=== PATIENT | female | born 1935 | race Caucasian/White ===

== ENCOUNTER → 2016-09-21 | Outpatient (CLI) | payer BC ==
[~2016-09-21] MED LIST: ACET-1311 PO; ASPCH81X PO; LSX20 PO; METO1TAB31 PO; ROSU5TAB PO; SPR25 PO; VERA120T65 PO
[2016-09-21 09:44] LABS: HEMATOCRIT 38.4 % (37-47); MEAN CELL VOLUME 100.3 fL (80-100); MEAN CORPUSCULAR HEMOGLOBIN 32.6 pg (25-34); MEAN CORPUSCULAR HGB CONC 32.6 g/dl (32-36); MEAN PLATELET VOLUME 10.5 fL (7.4-10.4); PLATELET COUNT 245 K/uL (130-400); RED BLOOD COUNT 3.83 M/uL (4.2-5.4); WHITE BLOOD COUNT 3.66 K/uL (4.8-10.8)
[2016-09-21 10:11] LABS: ALT/SGPT 23 U/L (12-78); AST/SGOT 17 U/L (15-37); BLOOD UREA NITROGEN 30 mg/dl (7-18); BUN/CREATININE RATIO 21.5 (10-20); CALCIUM 9.7 mg/dl (8.5-10.1); CARBON DIOXIDE 29 mmol/L (21-32); CHLORIDE 102 mmol/L (98-107); GLUCOSE 70 mg/dl (70-99); POTASSIUM 4.1 mmol/L (3.5-5.1); SODIUM 139 mmol/L (136-145)
[2016-09-21 10:15] LABS: ALKALINE PHOSPHATASE 61 U/L (45-117)
[2016-09-21 14:49] LABS: URINE APPEARANCE CLEAR (CLEAR); URINE BILIRUBIN NEG (NEG); URINE COLOR YELLOW; URINE NITRITE NEG (NEG); URINE PH 6.5 (4.5-7.5); URINE SPECIFIC GRAVITY 1.002 (1.000-1.030); UROBILINOGEN NEG (NEG)
[2016-09-21 14:52] LABS: MANUAL MICROSCOPIC REQUIRED? NO; REVIEW REQ? NO
[2016-09-21 15:08] LABS: URINE TOTAL PROTEIN < 5.0 mg/dl (0-11.9)
== END | disposition home or self-care (01) ==
LOC: C.LAB1850 08:06
PROVIDERS: ATTEND Internal Medicine Nephrology
DX: I12.9 Hypertensive chronic kidney disease with stage 1 through stage 4 chronic kidney disease, or unspecified chronic kidney disease (principal); N18.3 Chronic kidney disease, stage 3 (moderate); E55.9 Vitamin D deficiency, unspecified; D64.9 Anemia, unspecified; E78.00 Pure hypercholesterolemia, unspecified

== ENCOUNTER → 2017-04-10 | Outpatient (CLI) | payer BC ==
[2017-04-10 10:16] LABS: BASO ABS # 0.04 K/uL (0-0.2); COMPLETE YES; EOS % 5.7 %; HEMATOCRIT 36.5 % (37-47); IG% 0.3 %; LYMPH % 38.4 %; LYMPH ABS # 1.48 K/uL (1.2-3.4); MEAN CELL VOLUME 101.7 fL (80-100); MEAN CORPUSCULAR HEMOGLOBIN 33.4 pg (25-34); MEAN CORPUSCULAR HGB CONC 32.9 g/dl (32-36); MEAN PLATELET VOLUME 10.1 fL (7.4-10.4); MONO % 11.2 %; NEUT % 43.4 %; PLATELET COUNT 257 K/uL (130-400); RED BLOOD COUNT 3.59 M/uL (4.2-5.4); WHITE BLOOD COUNT 3.85 K/uL (4.8-10.8)
[2017-04-10 10:22] LABS: URINE APPEARANCE CLEAR (CLEAR); URINE BILIRUBIN NEG (NEG); URINE COLOR YELLOW; URINE EPITHELIAL CELL AUTO >30 /lpf (0-5); URINE NITRITE NEG (NEG); URINE SPECIFIC GRAVITY 1.014 (1.000-1.030); UROBILINOGEN NEG (NEG)
[2017-04-10 10:30] LABS: MANUAL MICROSCOPIC REQUIRED? NO; REVIEW REQ? NO
[2017-04-10 10:31] LABS: ALT/SGPT 21 U/L (12-78); AST/SGOT 20 U/L (15-37); BLOOD UREA NITROGEN 23 mg/dl (7-18); BUN/CREATININE RATIO 17.7 (10-20); CALCIUM 9.2 mg/dl (8.5-10.1); CARBON DIOXIDE 28 mmol/L (21-32); CHLORIDE 101 mmol/L (98-107); GLUCOSE 81 mg/dl (70-99); POTASSIUM 3.8 mmol/L (3.5-5.1); SODIUM 138 mmol/L (136-145)
[2017-04-10 10:34] LABS: ALKALINE PHOSPHATASE 72 U/L (45-117); CHOLESTEROL 231 mg/dl (0-200); CHOLESTEROL/HDL RATIO 2.3; HDL CHOLESTEROL 101 mg/dl; LDL CHOLESTEROL CALCULATED 86 mg/dl; TRIGLYCERIDES 222 mg/dl (0-150); VERY LOW DENSITY LIPOPROT CALC 44 mg/dl
[2017-04-10 11:03] LABS: URINE PROTIEN/CREAT RATIO 0.1 (0-0.2); URINE TOTAL PROTEIN 17.7 mg/dl (0-11.9)
[2017-04-10 11:12] LABS: RATIO 20.1 mcg/mg (0-30.0)
== END | disposition home or self-care (01) ==
LOC: C.LAB1850 09:03
PROVIDERS: ATTEND Internal Medicine
DX: I12.9 Hypertensive chronic kidney disease with stage 1 through stage 4 chronic kidney disease, or unspecified chronic kidney disease (principal); N18.3 Chronic kidney disease, stage 3 (moderate); E55.9 Vitamin D deficiency, unspecified; R60.9 Edema, unspecified; D64.9 Anemia, unspecified; E87.1 Hypo-osmolality and hyponatremia; E78.00 Pure hypercholesterolemia, unspecified; D50.8 Other iron deficiency anemias

== ENCOUNTER → 2017-10-09 | Outpatient (CLI) | payer BC ==
[~2017-10-09] MED LIST changes: +METO-478 PO; -METO1TAB31 PO
[2017-10-09 10:09] LABS: BASO % 0.9 %; BASO ABS # 0.04 K/uL (0-0.2); EOS % 3.8 %; EOS ABS # 0.16 K/uL (0-0.5); HEMATOCRIT 37.9 % (37-47); HEMOGLOBIN 12.7 g/dL (12.0-16.0); IG# 0.01 K/uL (0.00-0.02); LYMPH % 37.7 %; MEAN CELL VOLUME 101.6 fL (80-100); MEAN CORPUSCULAR HGB CONC 33.5 g/dl (32-36); MEAN PLATELET VOLUME 9.9 fL (7.4-10.4); MONO ABS # 0.34 K/uL (0.11-0.59); NEUT % 49.4 %; NEUT ABS # 2.09 K/uL (1.4-6.5); PLATELET COUNT 218 K/uL (130-400); RED CELL DISTRIBUTION WIDTH CV 12.2 % (11.5-14.5); WHITE BLOOD COUNT 4.24 K/uL (4.8-10.8)
[2017-10-09 10:36] LABS: ALBUMIN 3.8 gm/dl (3.4-5.0); ALT/SGPT 24 U/L (12-78); AST/SGOT 22 U/L (15-37); BLOOD UREA NITROGEN 25 mg/dl (7-18); CARBON DIOXIDE 27 mmol/L (21-32); GLUCOSE 86 mg/dl (70-99); POTASSIUM 3.8 mmol/L (3.5-5.1); SODIUM 135 mmol/L (136-145)
[2017-10-09 10:39] LABS: ALKALINE PHOSPHATASE 55 U/L (45-117); TOTAL PROTEIN 7.6 gm/dl (6.4-8.2)
== END | disposition home or self-care (01) ==
LOC: C.LAB1850 09:25
PROVIDERS: ATTEND Internal Medicine
DX: N18.3 Chronic kidney disease, stage 3 (moderate) (principal); I10 Essential (primary) hypertension; Z87.898 Personal history of other specified conditions; E55.9 Vitamin D deficiency, unspecified; D50.8 Other iron deficiency anemias

== ENCOUNTER 2020-11-30 03:04 | Observation (INO) ==
[2020-11-30] MEDS ORDERED: SODIUM CHLORIDE 0.9% 1000ML 500 ML IV ONE (03:10)
--- NOTE | 2020-11-30 03:18 | Emergency Department Note ---
Impression & Plan Syncope, Current use of usp anticoagulation, Closed head injury, Alcohol intoxication ED Provider Note Name: IVAN RODRIGUEZ Age: 85 Sex: F Arrives Via: Ambulance Informant: Patient, EMS ED Provider: Kennedy Cohen MD Chief Complaint: AMS Impression: Syncope Current use of termite exterminator helper anticoagulation Closed head injury Alcohol Intoxication Medical Decision Makin yr old female with history P-Afib on xarelto, CAD, DLP, HTN, CKD, SIADH, amongst others arrives after being found confused laying on floor of bathroom covered in stool. Arrives slightly sleepy but answering most questions other than not remember what occurred between going to bed at 8-9pm and being awoken by EMS at 2:30am. Slight contusion vs lump posterior scalp otherwise no evidence trauma. Ostomy bad was closed so it would stop leaking, of note she has taped her ostomy to her skin which she states doesn't cause skin break down. CT head/cervical spine negative. Labs with ++ etoh, which on further discussion patient admits to having "just 3 glasses of wine" prior to bed. EKG with afib, and of note she does tend to binu out a fair bit while sleeping in bed. No clear infectious etiology. Doesn't seem stroke. Hospitalist consulted given need for syncope rule out, though I do suspect etoh played role in head injury. With A&O I do not feel that she requires transfer to trauma center for monitoring at this time. Prior Medical Record and Triage/Nursing Notes reviewed by Me Additional history obtained from chart Differentials:Vasovagal event, dehydration, infection, hypoglycemia, electrolyte abnormalities, cardiac sources, intracerebral event, pulmonary embolism, seizure, toxicologic, neurologic, as well as other pathologies. Vital Signs: reviewed and remarkable for bradycardia Interventions: banana bag Labs:Reviewed and remarkable for ++etoh Imaging:[facility] Radiologist interpretation reviewed by me: CT head/cervical: no acute findings. X ray results are stated below per my interpretation: Chest: 1 view: No infiltrate, no effusion, normal cardiac border. Pelvis: 1 view: no fracture/dislocation EKG:Per My Interpretation: Indication Syncope: Afib with slow ventricular response 54 bpm, qtc 316. No Ectopy. No Ischemia. Compared to EKG 12/02/19 afib is new from previous sinus rhythm. Cardiac/Tele Monitoring: Cardiac Monitoring: An Order was placed for continuous cardiac monitoring. The monitor shows a rate of 45 with a afib binu rhythm. Consults:Dr Talley Hospitalist Plan: Disposition:Hospitalization. Condition: good History of Present Illness:85 yr old female arrives for evaluation of syncope. Patient notes she went to bed around 8 or 9 pm tonight. Her son found her crawling on the floor of the bathroom this morning around 2:30 am. EMS reports patient laying on floor in her own stool this morning. Patient is confused about events but denies any pain nor other symptoms. Patient notes that ostomy bag must have opened up at some point as she has stool on herself. Denies headache, neck pain, sob, cp, nausea, vomiting, fevers, chills, back pain, extremity pain, nor other symptoms. She denies frequent falls. Does not remember what happened after going to bed, but she thinks she may have gotten up to go to the bathroom. Denies etoh use this evening. No medications prior to arrival. Nothing makes better/worse. She uses Xarelto for history of Parox Afib. Is also on 81mg daily asa amongst others. ROS: See above HPI for pertinent positives & negatives. A total of 10 systems reviewed and were otherwise negative. Past Medical History:See Below Past Surgical History:See Below Family History:See Below Social History:See Below Home Medications:See Below Allergies:shrimp, nkda Vitals:Blood Pressure: 113/56, Pulse 49, RR 18, T 36.9C, O2 97% on RA Physical Exam: GENERAL: Patient is slightly confused appearing and in minimal distress. Covered in stool on hands/feet/legs. EYES: No scleral icterus, unremarkable pupils. HEAD: Small contusion/ttp posterior left scalp ENT: Mucous membranes moist, no nasal congestion. NECK: No masses appreciated, nomeningismus, trachea is midline. RESPIRATORY: No dyspnea. Clear to auscultation and equal bilaterally. No wheeze, no rhonchi. CARDIOVASCULAR: Binu, irregular.No murmurs, rubs, gallops appreciated. GASTROINTESTINAL: Ostomy left lower abdomen open and leaking brown soft stool. Abdomen soft, non-tender, no peritonitis.Bowel sounds positive.No masses appreciated. BACK: No midline tenderness, no CVA tenderness EXTREMITIES: Normal motion all extremities, no cyanosis, no edema. NEUROLOGIC: Awake, sleepy, a bit slow to respond, no acute motor or sensory def icits, no focal weakness, cranial nerves grossly intact. SKIN: No rash, no jaundice, no diaphoresis. PSYCH: Appropriate GCS: 15 ED Course: Times/Reassessments: stable, no distress Kennedy Cohen MD Past Med/Surg History Medical History (Updated 11/30/20 @ 05:11 by Marii Talley DO) Abdominal abscess Chronic kidney disease, stage 3 Ganglion cyst Hypertension Orthostatic hypotension SIADH (syndrome of inappropriate ADH production) Syncope Surgical History H/O dilation and curettage H/O oral surgery History of cataract surgery History of partial colectomy History of tubal ligation Family History Sister Breast cancer Unknown Diabetes Heart disease Father Myocardial infarction Denies family history of Ovarian cancer Prostate cancer Colorectal cancer Social History Smoking Status: Unknown if ever smoked Hx Alcohol Use: Yes (2 glasses a day ) Hx Substance Use: No Preferred Language: Martiniquais marital status: Feels Safe at Home: Yes Physical Activity Frequency: Daily Seatbelt Use: always Allergies Allergies Allergy/AdvReac Type Severity Reaction Status Date / Time shrimp Allergy Intermediate BREAKS OUT Verified 01/12/20 10:15 IN HIVES No Known Drug Allergies Allergy Verified 01/15/20 15:40 Home Meds Home Medications Medication Instructions Recorded Confirmed aspirin 81 mg tablet,delayed 81 mg PO MOFR tab 03/05/19 01/15/20 release coenzyme Q10 [CoQ-10] 100 mg PO QAM 06/21/19 01/15/20 naproxen 500 mg PO QAM 06/21/19 11/30/20 folic acid-vit B6-vit B12 1 tab PO MOWEFR 12/02/19 01/15/20 Previous Rx's Medication Instructions Recorded furosemide 20 mg tablet 20 mg PO .COMPLEX #90 tab 05/11/20 metoprolol succinate 50 mg 50 mg PO QAM #90 tab 05/17/20 tablet,extended release 24 hr rivaroxaban 15 mg tablet 15 mg PO DAILY #30 tab 07/29/20 rosuvastatin 5 mg tablet See Rx Instructions .ROUTE 10/01/20 .COMPLEX #36 tablet solifenacin 5 mg tablet 5 mg PO DAILY #30 tab 10/21/20 verapamil 120 mg tablet,extended See Rx Instructions .ROUTE 10/21/20 release .COMPLEX #90 tab Results & Data (ED) Vital Signs Vital Signs - 24 hr 11/30/20 02:56 11/30/20 03:14 11/30/20 03:19 Temperature 36.9 C Temperature Source Oral Pulse Rate 59 L 45 L 45 L Pulse Rhythm Regular Pulse Strength Normal Respiratory Rate 18 15 16 Respiratory Effort / Characteristics Non-Labored Respiratory Depth Normal Blood Pressure 136/75 136/75 Blood Pressure Mean 95 95 Blood Pressure Position Lying Pulse Oximetry 94 98 Oxygen Delivery Method Room Air Sepsis Recent Fever Within 48 Hours No Sepsis New/Unexplained Change in Mental Status Yes Sepsis Action Taken by Nursing No Action Required 11/30/20 04:00 11/30/20 04:01 11/30/20 04:31 Temperature Temperature Source Pulse Rate 53 L 62 48 L Pulse Rhythm Pulse Strength Respiratory Rate 18 16 21 Respiratory Effort / Characteristics Respiratory Depth Blood Pressure 121/50 L 112/55 L Blood Pressure Mean 73 74 Blood Pressure Position Pulse Oximetry 90 94 95 Oxygen Delivery Method Sepsis Recent Fever Within 48 Hours Sepsis New/Unexplained Change in Mental Status Sepsis Action Taken by Nursing 11/30/20 05:00 11/30/20 05:30 Temperature Temperature Source Pulse Rate 45 L 49 L Pulse Rhythm Pulse Strength Respiratory Rate 16 18 Respiratory Effort / Characteristics Respiratory Depth Blood Pressure 106/45 L 113/56 L Blood Pressure Mean 65 75 Blood Pressure Position Pulse Oximetry 93 97 Oxygen Delivery Method Sepsis Recent Fever Within 48 Hours Sepsis New/Unexplained Change in Mental Status Sepsis Action Taken by Nursing Laboratory Data Result diagrams: 11/30/20 03:27 11/30/20 03:27 Lab Results 11/30/20 11/30/20 11/30/20 Range/Units 03:27 03:27 03:27 WBC 6.24 (4.8-10.8) K/uL RBC 3.71 L (4.2-5.4) M/uL Hgb 12.6 (12.0-16.0) g/dL Hct 38.0 (37-47) % MCV 102.4 H (80-100) fL MCH 34.0 (25-34) pg MCHC 33.2 (32-36) g/dL RDW Std Deviation 45.1 (36.4-46.3) fL RDW Coeff of Diana 11.9 (11.5-14.5) % Plt Count 240 (130-400) K/uL MPV 9.4 (7.4-10.4) fL Immature Gran % (Auto) 0.2 % Neut % (Auto) 54.2 % Lymph % (Auto) 35.7 % Pickett % (Auto) 7.2 % Eos % (Auto) 2.2 % Baso % (Auto) 0.5 % Neut # (Auto) 3.38 (1.4-6.5) K/uL Lymph # (Auto) 2.23 (1.2-3.4) K/uL Pickett # (Auto) 0.45 (0.11-0.59) K/uL Eos # (Auto) 0.14 (0-0.5) K/uL Baso # (Auto) 0.03 (0-0.2) K/uL Immature Gran # (Auto) 0.01 (0.00-0.02) K/uL PT 12.8 H (9.0-12.0) Seconds INR 1.3 H (0.9-1.1) APTT 35.0 H (21.0-31.0) Seconds PTT Ratio 1.3 Sodium 138 (136-145) mmol/L Potassium 3.8 (3.5-5.1) mmol/L Chloride 102 (98-107) mmol/L Carbon Dioxide 26 (21-32) mmol/L Anion Gap 10.0 (3-11) BUN 26 H (7-18) mg/dl Creatinine 1.38 H (0.6-1.2) mg/dl Est Cr Clr Drug Dosing 22.7 ml/min Est GFR ( Amer) 39.7 ml/min Est GFR (Non-Af Amer) 34.3 ml/min BUN/Creatinine Ratio 19.0 (10-20) Glucose 82 (70-99) mg/dl Calcium 9.0 (8.5-10.1) mg/dl Magnesium 2.1 (1.8-2.4) mg/dl Total Bilirubin 0.3 (0.2-1) mg/dl Direct Bilirubin 0.1 (0-0.2) mg/dl AST 20 (15-37) U/L ALT 21 (12-78) U/L Alkaline Phosphatase 75 (45-117) U/L Total Creatine Kinase 56 (26-192) U/L Troponin I < 0.015 (0-0.045) ng/ml Total Protein 7.4 (6.4-8.2) gm/dl Albumin 3.5 (3.4-5.0) gm/dl Lipase 179 (73-393) U/L Ethyl Alcohol mg/dL (0-3) mg/dl COVID-19 Eval Order SARS-CoV-2 (PCR) (Negative) 11/30/20 11/30/20 11/30/20 Range/Units 03:27 04:06 04:06 WBC (4.8-10.8) K/uL RBC (4.2-5.4) M/uL Hgb (12.0-16.0) g/dL Hct (37-47) % MCV (80-100) fL MCH (25-34) pg MCHC (32-36) g/dL RDW Std Deviation (36.4-46.3) fL RDW Coeff of Diana (11.5-14.5) % Plt Count (130-400) K/uL MPV (7.4-10.4) fL Immature Gran % (Auto) % Neut % (Auto) % Lymph % (Auto) % Pickett % (Auto) % Eos % (Auto) % Baso % (Auto) % Neut # (Auto) (1.4-6.5) K/uL Lymph # (Auto) (1.2-3.4) K/uL Pickett # (Auto) (0.11-0.59) K/uL Eos # (Auto) (0-0.5) K/uL Baso # (Auto) (0-0.2) K/uL Immature Gran # (Auto) (0.00-0.02) K/uL PT (9.0-12.0) Seconds INR (0.9-1.1) APTT (21.0-31.0) Seconds PTT Ratio Sodium (136-145) mmol/L Potassium (3.5-5.1) mmol/L Chloride (98-107) mmol/L Carbon Dioxide (21-32) mmol/L Anion Gap (3-11) BUN (7-18) mg/dl Creatinine (0.6-1.2) mg/dl Est Cr Clr Drug Dosing ml/min Est GFR ( Amer) ml/min Est GFR (Non-Af Amer) ml/min BUN/Creatinine Ratio (10-20) Glucose (70-99) mg/dl Calcium (8.5-10.1) mg/dl Magnesium (1.8-2.4) mg/dl Total Bilirubin (0.2-1) mg/dl Direct Bilirubin (0-0.2) mg/dl AST (15-37) U/L ALT (12-78) U/L Alkaline Phosphatase (45-117) U/L Total Creatine Kinase (26-192) U/L Troponin I (0-0.045) ng/ml Total Protein (6.4-8.2) gm/dl Albumin (3.4-5.0) gm/dl Lipase (73-393) U/L Ethyl Alcohol mg/dL 241.0 H (0-3) mg/dl COVID-19 Eval Order Covid19 at [facility] SARS-CoV-2 (PCR) NEGATIVE (Negative) Administered Medications Multivitamins 10 ml/ Thiamine HCl 100 mg/ Folic Acid 1 mg/Sodium Chloride 1,011.2 mls @ 250 mls/hr IV .Q4H3M ONE Stop: 11/30/20 08:12 Last Admin: 11/30/20 04:29 Dose: 250 mls/hr Documented by: [id number] Discontinued Medications Sodium Chloride (Nss 1000ml) 500 mls @ 999 mls/hr IV .Q31M ONE Stop: 11/30/20 03:40 Last Infusion: 11/30/20 04:12 Dose: 0 mls/hr Documented by: [id number] Admin: 11/30/20 03:34 Dose: 999 mls/hr Documented by: [id number] Discharge Plan Visit Data Chief Complaint: Fall Stated Complaint: FALL ED Provider: Kennedy Cohen Discharge Problem: Syncope, Current use of termite exterminator helper anticoagulation, Closed head injury, Alcohol intoxication Forms Stand Alone Forms: My [facility] Prescriptions Prescriptions: No Action furosemide 20 mg tablet 20 mg PO .COMPLEX Qty: 90 RF: 3 metoprolol succinate 50 mg tablet extended release 24 hr 50 mg PO QAM Qty: 90 RF: 3 rosuvastatin 5 mg tablet See Rx Instructions .ROUTE .COMPLEX Qty: 36 RF: 3 solifenacin [Vesicare] 5 mg tablet 5 mg PO DAILY Qty: 30 RF: 2 verapamil 120 mg tablet extended release See Rx Instructions .ROUTE .COMPLEX Qty: 90 RF: 3 aspirin 81 mg tablet,delayed release (DR/EC) 81 mg PO MOFR RF: 0 Xarelto 15 mg tablet 15 mg PO DAILY Qty: 30 RF: 2 coenzyme Q10 [CoQ-10] 100 mg Capsule 100 mg PO QAM RF: 0 naproxen 500 mg tablet 500 mg PO QAM RF: 0 Hold Instructions: not safe folic acid-vit B6-vit B12 2.2-25-1 mg tablet 1 tab PO MOWEFR RF: 0 Discharge Problem: Syncope Qualifiers: Syncope type: unspecified Qualified Code(s): R55 - Syncope and collapse Closed head injury Qualifiers: Encounter type: initial encounter Qualified Code(s): S09.90XA - Unspecified injury of head, initial encounter Alcohol intoxication Qualifiers: Complication of substance-induced condition: uncomplicated Qualified Code(s): F10.920 - Alcohol use, unspecified with intoxication, uncomplicated
[2020-11-30 03:39] LABS: Basophils # (auto) 0.03 K/uL (0-0.2); Basophils % (auto) 0.5 %; Eosinophils # (auto) 0.14 K/uL (0-0.5); Eosinophils % (auto) 2.2 %; Hemoglobin 12.6 g/dL (12.0-16.0); Immature Granulocytes # (auto) 0.01 K/uL (0.00-0.02); Immature Granulocytes % (auto) 0.2 %; Lymphocytes # (auto) 2.23 K/uL (1.2-3.4); Lymphocytes % (auto) 35.7 %; Mean Corpuscular Hgb Conc 33.2 g/dL (32-36); Mean Corpuscular Volume 102.4 fL (80-100); Mean Platelet Volume 9.4 fL (7.4-10.4); Monocytes # (auto) 0.45 K/uL (0.11-0.59); Monocytes % (auto) 7.2 %; Neutrophils # (auto) 3.38 K/uL (1.4-6.5); Neutrophils % (auto) 54.2 %; Platelet Count 240 K/uL (130-400); RDW Coefficient of Variation 11.9 % (11.5-14.5); RDW Standard Deviation 45.1 fL (36.4-46.3); Red Blood Count 3.71 M/uL (4.2-5.4); White Blood Count 6.24 K/uL (4.8-10.8)
[2020-11-30 03:54] LABS: INR 1.3 (0.9-1.1); Partial Thromboplastin Ratio 1.3; Prothrombin Time 12.8 Seconds (9.0-12.0)
[2020-11-30 03:56] LABS: Alanine Aminotransferase 21 U/L (12-78); Albumin Level 3.5 gm/dl (3.4-5.0); Aspartate Aminotransferase 20 U/L (15-37); Bilirubin Direct 0.1 mg/dl (0-0.2); Blood Urea Nitrogen 26 mg/dl (7-18); Carbon Dioxide 26 mmol/L (21-32); Chloride 102 mmol/L (98-107); Creatinine Clr Calc Pharmacy 22.7 ml/min; Est GFR (African American) 39.7 ml/min; Est GFR (Non-African American) 34.3 ml/min; Glucose 82 mg/dl (70-99); Lipase 179 U/L (73-393); Magnesium 2.1 mg/dl (1.8-2.4); Potassium 3.8 mmol/L (3.5-5.1); Sodium 138 mmol/L (136-145)
[2020-11-30 04:01] LABS: Bilirubin,Total 0.3 mg/dl (0.2-1); Creatine Kinase 56 U/L (26-192); Total Protein 7.4 gm/dl (6.4-8.2); Troponin I < 0.015 ng/ml (0-0.045)
[2020-11-30] MEDS ORDERED: MULTI-VITAMIN INFUSION 10 ML, THIAMINE HCL 100 MG, FOLIC ACID 1 MG in SODIUM CHLORIDE 0... IV ONE (04:10)
[2020-11-30 04:13] LABS: Alkaline Phosphatase 75 U/L (45-117)
--- NOTE | 2020-11-30 05:15 | History & Physical Report ---
Date of Service November 30, 2020 Assessment & Plan (1) Syncope: 85yo female with history of PAF on Xarelto anticoagulation, HTN and HLP presenting after a presumed syncopal event at home. Patient drinks EtOH - 3 glasses of wine tonight prior to arrival with EtOH level of 241. AF with slow ventricular response - rate of 38 during my exam. -Telemetry monitoring -Check 2D echo -Cardiology consultation - ?bradycardia causing syncopal event - ?need for pacer -Fall precautions Present on Admission?: Yes (2) Closed head injury: Patient with closed head injury during syncopal event. She is on Xarelto anticoagulation. No focal deficits. CT head and c-spine with chronic changes - no acute issues -Neuro checks with GCS q 4 hours Present on Admission?: Yes (3) Paroxysmal atrial fibrillation: With bradycardia, HR of 38 during my encounter. On anticoagulation therapy with Xarelto -Hold Verapamil and Metoprolol for now in setting of bradycardia, syncope - ?pause or sustained mary leading to syncope -Hold Xarelto for now -Telemetry monitoring Present on Admission?: Yes (4) Alcohol use: Patient drinks EtOH fairly regularly - 3 glasses of wine prior to arrival -Banana bag -Monitor for evidence of EtOH withdrawal Present on Admission?: Yes (5) Hypertension: Blood pressure stable -Holding BB and CCB in setting of bradycardia Present on Admission?: Yes (6) SIADH (syndrome of inappropriate ADH production): Na within normal range at 138 -Continue to monitor Present on Admission?: Yes (7) Chronic kidney disease, stage 3: Renal function near baseline, Cr of 1.38, CrCl of 22.7 -Avoid nephrotoxic agents -Renal dosing where needed -Monitor BUN, Cr, electrolytes and UOP Present on Admission?: Yes (8) Hypercholesterolemia: Chronic -Continue Crestor 5mg po daily -Patient does not recall being on CoQ10 F/E/N - Banana bag, monitor electrolytes, NPO for now for possible pacer? Ppx - SCDs Code - Full per discussion with patient Dispo - Admit to medical with telemetry Present on Admission?: Yes History of Present Illness Chief Complaint: Syncope Primary Care Provider: Lisandra Barnhart MD Josiane Shannon is an 85yo C female with history of HTN, HLP, PAF on Xarelto anticoagulation presenting after syncopal event. Patient does not fully remember the events preceding the fall. She states she was in her bathroom when she passed out, struck her head. She was found laying on the bathroom floor, confused and covered in stool. She denies chest pain, palpitations, seizure like activity, numbness, tingling or weakness. No pain, No additional complaints at this time Patient does drink EtOH on a regular basis- had 3 glasses of wine prior to arrival this evening. Denies history of EtOH withdrawal symptoms. She has received both doses of Covid-19 vaccine ER Course: Banana bag, NSS x 500mL Allergies Allergy/AdvReac Type Severity Reaction Status Date / Time shrimp Allergy Intermediate BREAKS OUT Verified 01/12/20 10:15 IN HIVES No Known Drug Allergies Allergy Verified 01/15/20 15:40 Home Medications Medication Instructions Recorded Confirmed Type aspirin 81 mg tablet,delayed 81 mg PO MOFR tab 03/05/19 01/15/20 History release coenzyme Q10 [CoQ-10] 100 mg PO QAM 06/21/19 01/15/20 History naproxen 500 mg PO QAM 06/21/19 11/30/20 History folic acid-vit B6-vit B12 1 tab PO MOWEFR 12/02/19 01/15/20 History furosemide 20 mg tablet 20 mg PO .COMPLEX #90 tab 05/11/20 Rx metoprolol succinate 50 mg 50 mg PO QAM #90 tab 05/17/20 11/30/20 Rx tablet,extended release 24 hr rivaroxaban 15 mg tablet 15 mg PO DAILY #30 tab 07/29/20 11/30/20 Rx rosuvastatin 5 mg tablet See Rx Instructions .ROUTE 10/01/20 11/30/20 Rx .COMPLEX #36 tablet solifenacin 5 mg tablet 5 mg PO DAILY #30 tab 10/21/20 11/30/20 Rx verapamil 120 mg tablet,extended See Rx Instructions .ROUTE 10/21/20 11/30/20 Rx release .COMPLEX #90 tab Past Med/Surg History Medical History (Updated 11/30/20 @ 05:11 by Marii Talley DO) Abdominal abscess Chronic kidney disease, stage 3 Ganglion cyst Hypertension Orthostatic hypotension SIADH (syndrome of inappropriate ADH production) Syncope Surgical History H/O dilation and curettage H/O oral surgery History of cataract surgery History of partial colectomy History of tubal ligation Family History Sister Breast cancer Unknown Diabetes Heart disease Father Myocardial infarction Denies family history of Ovarian cancer Prostate cancer Colorectal cancer Social History Smoking Status: Unknown if ever smoked Hx Alcohol Use: Yes (2 glasses a day ) Hx Substance Use: No Preferred Language: Mauritian marital status: Feels Safe at Home: Yes Physical Activity Frequency: Daily Seatbelt Use: always Review of Systems Review of Systems: All systems reviewed & are unremarkable except as noted in HPI & below Physical Exam Physical Exam: General: patient resting comfortably, NAD, non-toxic in appearance, AA&O x 3, somewhat slow to answer questions Skin: warm, dry, intact, no rashes or lesions HEENT: small bruise posterior scalp, PERRL, EOMI, anicteric sclera, conjunctiva without injection, external ear normal to inspection and nontender, nares patent, moist mucus membranes, dentition intact, no oropharyngeal lesions, neck supple, trachea midline, no LAD, no thyromegaly, no JVD Heart: +S1/S2, irregularly irregular, bradycardic, no m/r/g Lungs: equal air entry bilaterally, no rales/rhonchi/wheezes Abd: +BS, soft, NT/ND, +Colostomy in place with brown stool present, taped to skin with small pieces of duct tape Ext: warm, 2+ pulses in UE/LE bilaterally, no clubbing/cyanosis or edema Neuro: nonfocal, patient AA&O x 3, speech intact, no facial droop, moving all extremities on command with equal strength 5/5 Results & Data Results & Data ([facility]) Vital Signs (Past 12 Hours) Vital Signs Temp Pulse Resp BP Pulse Ox 11/30/20 04:31 48 L 21 112/55 L 95 11/30/20 04:01 62 16 121/50 L 94 11/30/20 04:00 53 L 18 90 11/30/20 03:19 45 L 16 136/75 98 11/30/20 03:14 45 L 15 11/30/20 02:56 36.9 C 59 L 18 136/75 94 Laboratory Results Laboratory Results WBC 6.24 K/uL (4.8-10.8) 11/30/20 03:27 RBC 3.71 M/uL (4.2-5.4) L 11/30/20 03:27 Hgb 12.6 g/dL (12.0-16.0) 11/30/20 03:27 Hct 38.0 % (37-47) 11/30/20 03:27 MCV 102.4 fL (80-100) H 11/30/20 03:27 MCH 34.0 pg (25-34) 11/30/20 03:27 MCHC 33.2 g/dL (32-36) 11/30/20 03:27 RDW Std Deviation 45.1 fL (36.4-46.3) 11/30/20 03:27 RDW Coeff of Diana 11.9 % (11.5-14.5) 11/30/20 03:27 Plt Count 240 K/uL (130-400) 11/30/20 03:27 MPV 9.4 fL (7.4-10.4) 11/30/20 03:27 Immature Gran % (Auto) 0.2 % 11/30/20 03:27 Neut % (Auto) 54.2 % 11/30/20 03:27 Lymph % (Auto) 35.7 % 11/30/20 03:27 Phelps % (Auto) 7.2 % 11/30/20 03:27 Eos % (Auto) 2.2 % 11/30/20 03:27 Baso % (Auto) 0.5 % 11/30/20 03:27 Neut # (Auto) 3.38 K/uL (1.4-6.5) 11/30/20 03:27 Lymph # (Auto) 2.23 K/uL (1.2-3.4) 11/30/20 03:27 Phelps # (Auto) 0.45 K/uL (0.11-0.59) 11/30/20 03:27 Eos # (Auto) 0.14 K/uL (0-0.5) 11/30/20 03:27 Baso # (Auto) 0.03 K/uL (0-0.2) 11/30/20 03:27 Immature Gran # (Auto) 0.01 K/uL (0.00-0.02) 11/30/20 03:27 PT 12.8 Seconds (9.0-12.0) H 11/30/20 03:27 INR 1.3 (0.9-1.1) H 11/30/20 03:27 APTT 35.0 Seconds (21.0-31.0) H 11/30/20 03:27 PTT Ratio 1.3 11/30/20 03:27 Sodium 138 mmol/L (136-145) 11/30/20 03:27 Potassium 3.8 mmol/L (3.5-5.1) 11/30/20 03:27 Chloride 102 mmol/L (98-107) 11/30/20 03:27 Carbon Dioxide 26 mmol/L (21-32) 11/30/20 03:27 Anion Gap 10.0 (3-11) 11/30/20 03:27 BUN 26 mg/dl (7-18) H 11/30/20 03:27 Creatinine 1.38 mg/dl (0.6-1.2) H 11/30/20 03:27 Est Cr Clr Drug Dosing 22.7 ml/min 11/30/20 03:27 Est GFR ( Amer) 39.7 ml/min 11/30/20 03:27 Est GFR (Non-Af Amer) 34.3 ml/min 11/30/20 03:27 BUN/Creatinine Ratio 19.0 (10-20) 11/30/20 03:27 Glucose 82 mg/dl (70-99) 11/30/20 03:27 Calcium 9.0 mg/dl (8.5-10.1) 11/30/20 03:27 Magnesium 2.1 mg/dl (1.8-2.4) 11/30/20 03:27 Total Bilirubin 0.3 mg/dl (0.2-1) 11/30/20 03:27 Direct Bilirubin 0.1 mg/dl (0-0.2) 11/30/20 03:27 AST 20 U/L (15-37) 11/30/20 03:27 ALT 21 U/L (12-78) 11/30/20 03:27 Alkaline Phosphatase 75 U/L (45-117) 11/30/20 03:27 Total Creatine Kinase 56 U/L (26-192) 11/30/20 03:27 Troponin I < 0.015 ng/ml (0-0.045) 11/30/20 03:27 Total Protein 7.4 gm/dl (6.4-8.2) 11/30/20 03:27 Albumin 3.5 gm/dl (3.4-5.0) 11/30/20 03:27 Lipase 179 U/L (73-393) 11/30/20 03:27 Ethyl Alcohol mg/dL 241.0 mg/dl (0-3) H 11/30/20 03:27 COVID-19 Eval Order Covid19 at [facility] 11/30/20 04:06 ECG Additional Comments: AF with slow ventricular response, 54bpm, no acute ischemici changes PG Care Time/CCT Total # of Minutes Spent Total Time Spent with Patient: Total time spent is greater than 50% in coordination of care (as documented) at patient's floor/unit and/or counseling patient: Coding Level of Care Code 23776 Initial Inpt Care Lvl 3 Diagnoses Syncope R55 Syncope type: unspecified Closed head injury S09.90XA Encounter type: initial encounter Paroxysmal atrial fibrillation I48.0 Alcohol use Z72.89 Hypertension I10 Hypertension type: essential hypertension SIADH (syndrome of inappropriate ADH production) E22.2 Chronic kidney disease, stage 3 N18.30 Chronic kidney disease stage 3 subtype: unspecified whether 3a or 3b Hypercholesterolemia E78.00 (1) Syncope Syncope type: unspecified Qualified Code(s): R55 - Syncope and collapse (2) Closed head injury Encounter type: initial encounter Qualified Code(s): S09.90XA - Unspecified injury of head, initial encounter (3) Hypertension Hypertension type: essential hypertension Qualified Code(s): I10 - Essential (primary) hypertension (4) Chronic kidney disease, stage 3 Chronic kidney disease stage 3 subtype: unspecified whether 3a or 3b Qualified Code(s): N18.30 - Chronic kidney disease, stage 3 unspecified
[2020-11-30] MEDS ORDERED: ONDANSETRON INJ 2 MG/ML 2 ML VIAL IV PRN (06:22)
[2020-11-30] MEDS ORDERED: ACETAMINOPHEN 325 MG TAB PO PRN (06:22)
--- NOTE | 2020-11-30 06:33 | XRay Report ---
XR pelvis 1-2V routine CLINICAL HISTORY: fall, trauma COMPARISON: Pelvis radiograph December 02, 2019. FINDINGS: The sacroiliac joints and symphysis pubis are intact. No acute fractures are identified wi thin the pelvis or hips. Visualized bowel gas pattern is unremarkable. 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 IMPRESSION: No acute fracture within the pelvis or hips. ACT 112: Negative or not required by law. Electronically signed by: Bryan Villalta M.D. 11/30/2020 6:32 AM
--- NOTE | 2020-11-30 06:34 | XRay Report ---
XR chest 1V portable CLINICAL HISTORY: syncope COMPARISON STUDY: Chest radiograph December 02, 2019. FINDINGS: Lung volumes are normal. Lungs are clear. There is no pneumothorax or pleural effusion. Car diac size is normal. Mediastinal contours are normal. There is no evidence for pulmonary edema. IMPRESSION: No acute cardiopulmonary findings. ACT 112: Negative or not required by law. Electronically signed by: Bryan Villalta M.D. 11/30/2020 6:33 AM
--- NOTE | 2020-11-30 07:00 | CT Scan Report ---
CT head/brain wo con CLINICAL HISTORY: 85 years-old Female with ams, fell, syncope. Acutely altered mental status with fa ll and syncope. TECHNIQUE: Multiple axial CT images of the head were obtained without contrast. A dose lowering tech nique was utilized adhering to the principles of ALARA. CT DOSE: 868.38 mGy.cm COMPARISON: CT cervical spine of same day, head CT 12/02/2019. FINDINGS: No acute intracranial hemorrhage, midline shift, intracranial mass, hydrocephalus, territorial ischem ia or abnormal extra-axial collection. Age-related involutional changes with ex vacuo ventriculomegal y. 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 Mild white matter hypodensities suggest chronic mi crovascular ischemic disease. Cerebral vascular calcifications. The calvarium is intact. Mastoid air cells are clear. Moderate mucoperiosteal thickening of the righ t greater than left sphenoid sinuses compatible with chronic sinusitis. 9 mm subcutaneous hematoma of the left parietal scalp near the apex. Prior lens repair bilaterally. IMPRESSION: No acute intracranial abnormality or calvarial fracture. ACT 112: Negative or not required by law. The above report was generated using voice recognition software. It may contain grammatical, syntax o r spelling errors. Electronically signed by: Connor Hirsch M.D. 11/30/2020 6:59 AM
[2020-11-30] MEDS ORDERED: SOLIFENACIN 5 MG PO SCH (09:00)
--- NOTE | 2020-11-30 09:18 | Medical Student Progress Note ---
Date of Service November 30, 2020 Assessment & Plan (1) Syncope: Pt has a history of A. Fib and is on xarelto, but remains asymptomatic. Does not remember feeling any palpitations, chest pain, or lightheaded when she fell. Does note a decrease in her balance which can be due to decreased sensatio n the toes of her left foot, but also due to her alcohol use. She notes drinking about 3 drinks daily which could contribute to her decrease in balance. Her fall could have been due to arrythmia, orthostasis, or alcohol use or a combination, a clear cause cannot be determined. Cardiology was consulted and recommended stopping verapamil at home and just continuing metoprolol. -Hold Xarelto, Verapamil, and Metoprolol for now. -Telemetry -Fall precautions Syncope type: unspecified Qualified Code(s): R55 - Syncope and collapse (2) Alcohol use: Pt drinks about 3 glasses of wine daily which may be contributing to her balance issues. Watch for withdrawal symptoms (3) Paroxysmal atrial fibrillation: Pt is currently in A. Fib but is asymptomatic and has been bradycardic. Will d/c verapamil and continue metoprolol on d/c -Holding meds for now. (4) Chronic kidney disease, stage 3: Baseline Cr=1.38, monitor BUN/Cr and BMP Chronic kidney disease stage 3 subtype: unspecified whether 3a or 3b Qualified Code(s): N18.30 - Chronic kidney disease, stage 3 unspecified Admission and Anticipated Discharge Date Admission Date: November 30, 2020 Supervising Attestation Patient seen and examined with MS Freedom Ferguson and PGY-2 Dr. Barroso. Agree with history, exam findings, assessment and plan of care as outlined. In brief, Ms. Shannon is an 85 year old female with history of afib, HTN CKD and prior CVA many years ago admitted for syncope. Does not recall events of the syncopal episode. Feels well. Does report some difficulty with balance and feeling a bit dizzy or off balance with getting up from the toilet or getting up in the middle of the night. Also notes that she has had some chronic R shoulder weakness and pain. Well appearing. Heart rate is slightly bradycardic. No murmur or rub. Lungs clear to auscultation. 1. Syncope. Echo with preserved EF. ?secondary to bradycardia. 2. Closed head injury. CT without bleed. Neuro checks. 3. pAF. Bradycardic. Continue to home verapamil. Restart metoprolol at lower dose (25mg) now that HR is improving. Holding AC for now. Will need some outpatient monitoring 4. ETOH use. Discussed avoid regular ETOH consumption as this may contribute to balance issues. 5. Right shoulder pain. Based on prior humeral radiographs, suspect that she has a chronic rotator cuff tear based on the superior migration of the humeral head and flattening of the acromial arch. 6. Recurrent falls. PT/OT. Dispo: pending clinical improvement. Subjective Pt is 85 yo F w/ Hx of Afib, HTN, CKD, and CVA 20 years ago, that came into the ER last night after being found on the floor of bathroom. Pt states she doesn't remember feeling dizzy or lightheaded when she fell. [place] she just lost her balance. She had a prior fall 3 wks earlier where she hit the back of her head, but did not seek medical treatment for. Pt states she had 3 glasses of wine that day, but also states that that is her normal. Denies having any chest pain, palpiations, SOB, or vertigo. Pt does have an ostomy bag taped on the L side of her abd. In the ER, pt had CT done which was negative fro acute findings and an ECG done which showed A.Fib. Lab work came back normal except fro Coag studies which show elevated PT/INR, but not in therapeutic range. EtOH came back positive. Today, pt is feeling much better, she denies any dizziness, LH, or palpitations Review of Systems Review of Systems: All systems reviewed & are unremarkable except as noted in Subjective Physical Exam Constitutional: WD/WN, vitals as above Eyes: PERRL, conjunctivae normal, anicteric sclerae Neck: trachea midline, no thyromegaly Respiratory: normal respiratory effort, lungs clear to auscultation Cardiovascular: Rate/Rhythm: + irregularly irregular Heart Sounds: no murmur Vessels: radial pulses present Gastrointestinal (Abdomen): normal bowel sounds, soft, nontender, no hepatosplenomegaly (Has ostomy bag taped on Left side.) Musculoskeletal: R. Shoulder No bony deformities, inflammation in rotator cuff, biceps tendon, or acromioclavicular joint. Limited ROM with ABD. Decreased strength in shoulder u negin ABD and ER [4/5]. Pain in posterior shoulder along teres minor, infraspinatus. Empty Can (+), belly press (-) L shoulder Strength 5/5 with full ROM. Neurologic: DTR normal except for absent ankle reflexes bilaterally. Decreased vibratory sensation in toes of L foot. Results & Data ([facility]) Vital Signs (Past 12 Hours) Vital Signs Temp Pulse Pulse Resp BP BP Pulse Ox 11/30/20 07:16 48 L 11/30/20 06:00 36.5 C 73 19 135/66 95 11/30/20 05:30 49 L 18 113/56 L 97 11/30/20 05:00 45 L 16 106/45 L 93 11/30/20 04:31 48 L 21 112/55 L 95 11/30/20 04:01 62 16 121/50 L 94 11/30/20 04:00 53 L 18 90 11/30/20 03:19 45 L 16 136/75 98 11/30/20 03:14 45 L 15 11/30/20 02:56 36.9 C 59 L 18 136/75 94 Laboratory Results CBC unremarkable CMP unremarkable Coagulation studies- PT=12.8 INR=1.3 aPTT=35 Troponin negative EtOH- High of 241 11/30/20 11/30/20 11/30/20 Range/Units 04:06 04:06 03:27 WBC (4.8-10.8) K/uL RBC (4.2-5.4) M/uL Hgb (12.0-16.0) g/dL Hct (37-47) % MCV (80-100) fL MCH (25-34) pg MCHC (32-36) g/dL RDW Std Deviation (36.4-46.3) fL RDW Coeff of Diana (11.5-14.5) % Plt Count (130-400) K/uL MPV (7.4-10.4) fL Immature Gran % (Auto) % Neut % (Auto) % Lymph % (Auto) % Whitley % (Auto) % Eos % (Auto) % Baso % (Auto) % Neut # (Auto) (1.4-6.5) K/uL Lymph # (Auto) (1.2-3.4) K/uL Whitley # (Auto) (0.11-0.59) K/uL Eos # (Auto) (0-0.5) K/uL Baso # (Auto) (0-0.2) K/uL Immature Gran # (Auto) (0.00-0.02) K/uL PT (9.0-12.0) Seconds INR (0.9-1.1) APTT (21.0-31.0) Seconds PTT Ratio Sodium (136-145) mmol/L Potassium (3.5-5.1) mmol/L Chloride (98-107) mmol/L Carbon Dioxide (21-32) mmol/L Anion Gap (3-11) BUN (7-18) mg/dl Creatinine (0.6-1.2) mg/dl Est Cr Clr Drug Dosing ml/min Est GFR ( Amer) ml/min Est GFR (Non-Af Amer) ml/min BUN/Creatinine Ratio (10-20) Glucose (70-99) mg/dl Calcium (8.5-10.1) mg/dl Magnesium (1.8-2.4) mg/dl Total Bilirubin (0.2-1) mg/dl Direct Bilirubin (0-0.2) mg/dl AST (15-37) U/L ALT (12-78) U/L Alkaline Phosphatase (45-117) U/L Total Creatine Kinase (26-192) U/L Troponin I (0-0.045) ng/ml Total Protein (6.4-8.2) gm/dl Albumin (3.4-5.0) gm/dl Lipase (73-393) U/L Ethyl Alcohol mg/dL 241.0 H (0-3) mg/dl COVID-19 Eval Order Covid19 at [facility] SARS-CoV-2 (PCR) NEGATIVE (Negative) 11/30/20 11/30/20 11/30/20 Range/Units 03:27 03:27 03:27 WBC 6.24 (4.8-10.8) K/uL RBC 3.71 L (4.2-5.4) M/uL Hgb 12.6 (12.0-16.0) g/dL Hct 38.0 (37-47) % MCV 102.4 H (80-100) fL MCH 34.0 (25-34) pg MCHC 33.2 (32-36) g/dL RDW Std Deviation 45.1 (36.4-46.3) fL RDW Coeff of Diana 11.9 (11.5-14.5) % Plt Count 240 (130-400) K/uL MPV 9.4 (7.4-10.4) fL Immature Gran % (Auto) 0.2 % Neut % (Auto) 54.2 % Lymph % (Auto) 35.7 % Whitley % (Auto) 7.2 % Eos % (Auto) 2.2 % Baso % (Auto) 0.5 % Neut # (Auto) 3.38 (1.4-6.5) K/uL Lymph # (Auto) 2.23 (1.2-3.4) K/uL Whitley # (Auto) 0.45 (0.11-0.59) K/uL Eos # (Auto) 0.14 (0-0.5) K/uL Baso # (Auto) 0.03 (0-0.2) K/uL Immature Gran # (Auto) 0.01 (0.00-0.02) K/uL PT 12.8 H (9.0-12.0) Seconds INR 1.3 H (0.9-1.1) APTT 35.0 H (21.0-31.0) Seconds PTT Ratio 1.3 Sodium 138 (136-145) mmol/L Potassium 3.8 (3.5-5.1) mmol/L Chloride 102 (98-107) mmol/L Carbon Dioxide 26 (21-32) mmol/L Anion Gap 10.0 (3-11) BUN 26 H (7-18) mg/dl Creatinine 1.38 H (0.6-1.2) mg/dl Est Cr Clr Drug Dosing 22.7 ml/min Est GFR ( Amer) 39.7 ml/min Est GFR (Non-Af Amer) 34.3 ml/min BUN/Creatinine Ratio 19.0 (10-20) Glucose 82 (70-99) mg/dl Calcium 9.0 (8.5-10.1) mg/dl Magnesium 2.1 (1.8-2.4) mg/dl Total Bilirubin 0.3 (0.2-1) mg/dl Direct Bilirubin 0.1 (0-0.2) mg/dl AST 20 (15-37) U/L ALT 21 (12-78) U/L Alkaline Phosphatase 75 (45-117) U/L Total Creatine Kinase 56 (26-192) U/L Troponin I < 0.015 (0-0.045) ng/ml Total Protein 7.4 (6.4-8.2) gm/dl Albumin 3.5 (3.4-5.0) gm/dl Lipase 179 (73-393) U/L Ethyl Alcohol mg/dL (0-3) mg/dl COVID-19 Eval Order SARS-CoV-2 (PCR) (Negative) Diagnostic Findings Laboratory Results WBC 6.24 K/uL (4.8-10.8) 11/30/20 03:27 RBC 3.71 M/uL (4.2-5.4) L 11/30/20 03:27 Hgb 12.6 g/dL (12.0-16.0) 11/30/20 03:27 Hct 38.0 % (37-47) 11/30/20 03:27 MCV 102.4 fL (80-100) H 11/30/20 03:27 MCH 34.0 pg (25-34) 11/30/20 03:27 MCHC 33.2 g/dL (32-36) 11/30/20 03:27 RDW Std Deviation 45.1 fL (36.4-46.3) 11/30/20 03:27 RDW Coeff of Diana 11.9 % (11.5-14.5) 11/30/20 03:27 Plt Count 240 K/uL (130-400) 11/30/20 03:27 MPV 9.4 fL (7.4-10.4) 11/30/20 03:27 Immature Gran % (Auto) 0.2 % 11/30/20 03:27 Neut % (Auto) 54.2 % 11/30/20 03:27 Lymph % (Auto) 35.7 % 11/30/20 03:27 Whitley % (Auto) 7.2 % 11/30/20 03:27 Eos % (Auto) 2.2 % 11/30/20 03:27 Baso % (Auto) 0.5 % 11/30/20 03:27 Neut # (Auto) 3.38 K/uL (1.4-6.5) 11/30/20 03:27 Lymph # (Auto) 2.23 K/uL (1.2-3.4) 11/30/20 03:27 Whitley # (Auto) 0.45 K/uL (0.11-0.59) 11/30/20 03:27 Eos # (Auto) 0.14 K/uL (0-0.5) 11/30/20 03:27 Baso # (Auto) 0.03 K/uL (0-0.2) 11/30/20 03:27 Immature Gran # (Auto) 0.01 K/uL (0.00-0.02) 11/30/20 03:27 PT 12.8 Seconds (9.0-12.0) H 11/30/20 03:27 INR 1.3 (0.9-1.1) H 11/30/20 03:27 APTT 35.0 Seconds (21.0-31.0) H 11/30/20 03:27 PTT Ratio 1.3 11/30/20 03:27 Sodium 138 mmol/L (136-145) 11/30/20 03:27 Potassium 3.8 mmol/L (3.5-5.1) 11/30/20 03:27 Chloride 102 mmol/L (98-107) 11/30/20 03:27 Carbon Dioxide 26 mmol/L (21-32) 11/30/20 03:27 Anion Gap 10.0 (3-11) 11/30/20 03:27 BUN 26 mg/dl (7-18) H 11/30/20 03:27 Creatinine 1.38 mg/dl (0.6-1.2) H 11/30/20 03:27 Est Cr Clr Drug Dosing 22.7 ml/min 11/30/20 03:27 Est GFR ( Amer) 39.7 ml/min 11/30/20 03:27 Est GFR (Non-Af Amer) 34.3 ml/min 11/30/20 03:27 BUN/Creatinine Ratio 19.0 (10-20) 11/30/20 03:27 Glucose 82 mg/dl (70-99) 11/30/20 03:27 Calcium 9.0 mg/dl (8.5-10.1) 11/30/20 03:27 Magnesium 2.1 mg/dl (1.8-2.4) 11/30/20 03:27 Total Bilirubin 0.3 mg/dl (0.2-1) 11/30/20 03:27 Direct Bilirubin 0.1 mg/dl (0-0.2) 11/30/20 03:27 AST 20 U/L (15-37) 11/30/20 03:27 ALT 21 U/L (12-78) 11/30/20 03:27 Alkaline Phosphatase 75 U/L (45-117) 11/30/20 03:27 Total Creatine Kinase 56 U/L (26-192) 11/30/20 03:27 Troponin I < 0.015 ng/ml (0-0.045) 11/30/20 03:27 Total Protein 7.4 gm/dl (6.4-8.2) 11/30/20 03:27 Albumin 3.5 gm/dl (3.4-5.0) 11/30/20 03:27 Lipase 179 U/L (73-393) 11/30/20 03:27 Ethyl Alcohol mg/dL 241.0 mg/dl (0-3) H 11/30/20 03:27 COVID-19 Eval Order Covid19 at [facility] 11/30/20 04:06 SARS-CoV-2 (PCR) NEGATIVE (Negative) 11/30/20 04:06 Impressions Chest X-Ray 11/30/20 03:10 XR chest 1V portable CLINICAL HISTORY: syncope COMPARISON STUDY: Chest radiograph December 02, 2019. FINDINGS: Lung volumes are normal. Lungs are clear. There is no pneumothorax or pleural effusion. Cardiac size is normal. Mediastinal contours are normal. There is no evidence for pulmonary edema. IMPRESSION: No acute cardiopulmonary findings. ACT 112: Negative or not required by law. Electronically signed by: Bryan Villalta M.D. 11/30/2020 6:[address] 11/30/20 03:10 CT head/brain wo con CLINICAL HISTORY: 85 years-old Female with ams, fell, syncope. Acutely altered mental status with fall and syncope. TECHNIQUE: Multiple axial CT images of the head were obtained without contrast. A dose lowering technique was utilized adhering to the principles of ALARA. CT DOSE: 868.38 mGy.cm COMPARISON: CT cervical spine of same day, head CT 12/02/2019. FINDINGS: No acute intracranial hemorrhage, midline shift, intracranial mass, hydrocephalus, territorial ischemia or abnormal extra-axial collection. Age- related involutional changes with ex vacuo ventriculomegaly. 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 Mild white matter hypodensities suggest chronic microvascular ischemic disease. Cerebral vascular calcifications. The calvarium is intact. Mastoid air cells are clear. Moderate mucoperiosteal thickening of the right greater than left sphenoid sinuses compatible with chronic sinusitis. 9 mm subcutaneous hematoma of the left parietal scalp near the apex. Prior lens repair bilaterally. IMPRESSION: No acute intracranial abnormality or calvarial fracture. ACT 112: Negative or not required by law. The above report was generated using voice recognition software. It may contain grammatical, syntax or spelling errors. Electronically signed by: Connor Hirsch M.D. 11/30/2020 6:59 AM Pelvis X-Ray 11/30/20 03:11 XR pelvis 1-2V routine CLINICAL HISTORY: fall, trauma COMPARISON: Pelvis radiograph December 02, 2019. FINDINGS: The sacroiliac joints and symphysis pubis are intact. No acute fractures are identified within the pelvis or hips. Visualized bowel gas pattern is unremarkable. 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 IMPRESSION: No acute fracture within the pelvis or hips. ACT 112: Negative or not required by law. Electronically signed by: Bryan Villalta M.D. 11/30/2020 6:32 AM ECG Rhythm: atrial fibrillation
--- NOTE | 2020-11-30 10:56 | CT Scan Report ---
CT OF THE CERVICAL SPINE CLINICAL HISTORY: fall, head injury, syncope COMPARISON STUDY: December 02, 2019 CT DOSE: TECHNIQUE: CT scan of the cervical spine was performed from the skull base to the thoracic inlet. Juani ges are reviewed in the axial, sagittal, and coronal planes. IV contrast was not administered for thi s examination. A dose lowering technique was utilized adhering to the principles of ALARA. FINDINGS: The visualized portions of the lung apices reveal no evidence of pneumothorax. The prevertebral soft tissues are normal. No fractures or subluxations are visualized. Normal cervical lordosis is preserved. Mild anterolisthesis of C3 on C4 is again seen and unchanged since prior. There are multilevel degenerative changes C2-C3: Intervertebral disc space is preserved. Central canal and bilateral neural foramina are patent . C3-C4: Mild anterolisthesis of C3 on C4 is seen. Minimal narrowing of intervertebral disc space is se en. Hypertrophic changes of uncovertebral and facet joints are demonstrated. Mild narrowing of the ce ntral canal and bilateral neural foramina are seen at this level. C4-C5: Intervertebral disc space narrowing with subchondral sclerosis. Hypertrophic changes of uncove rtebral and facet joints are seen. Mild narrowing of the central canal and bilateral neural foramina are seen at this level. C5-C6: Severe narrowing of intervertebral disc spaces with subchondral sclerosis and posterior osteop hytes. Hypertrophic changes of uncovertebral and facet joints are seen. Mild narrowing of the central canal. Moderate to severe narrowing of bilateral neuroforamina are seen. C6-C7: Intervertebral disc space narrowing with subchondral sclerosis. Hypertrophic changes of uncove rtebral and facet joints are seen. Mild narrowing of the central canal. Mild to moderate narrowing of the right neural foramina. Left neural foramina is patent. C7-T1: Intervertebral disc spaces preserved. Minimal anterolisthesis of C7 on T1 which was also seen on prior study. Central canal and bilateral neural foramina are patent. IMPRESSION: 1. No acute fracture or traumatic malalignment. 2. Severe multilevel degenerative changes of the spine not significantly changed since prior as deta iled above. ACT 112: Negative or not required by law. The above report was generated using voice recognition software. It may contain grammatical, syntax o r spelling errors. Electronically signed by: Lisseth Laguerre DO 11/30/2020 4:13 PM
--- NOTE | 2020-11-30 11:47 | Cardiology Consultation ---
Date of Consultation November 30, 2020 Assessment & Plan (1) Syncope: The patient appears have lost consciousness at some point. Whether this precipitated her fall or her fall and head injury resulted in loss of consciousness is unclear. Several possible factors involved in the event last night which include chronic gait instability, arrhythmia and alcohol use. I do not think we have a definite etiology for the event. She will likely require some additional monitoring in order to exclude arrhythmia as an etiology. (2) Bradycardia: She presented in atrial fibrillation with a slow ventricular rate. It is certainly possible that either a transition to atrial fibrillation or period of ventricular asystole caused her to fall or pass out. She is on 2 medications for rate control. She does not likely need such aggressive treatment given the controlled and actually slow ventricular rates associated with atrial fibrillation. I would advocate stopping her verapamil and continuing her metoprolol succinate. I would ask her to ambulate when she is ready. If she is ambulatory with normal heart rates and no symptoms, she can likely be discharged on metoprolol succinate 50 mg daily. She will need to monitor her blood pressure in the outpatient setting in order to insure she does not require additional antihypertensive since we will be stopping verapamil. I would advocate a period of outpatient monitoring as well with an ambulatory event monitor to see if she has periods of ventricular asystole or any arrhythmias associated with symptoms. I think repeat echocardiogram today would also be helpful. (3) Paroxysmal atrial fibrillation: Documented remotely. No symptoms other than bradycardia. Currently in atrial fibrillation with slower ventricular rates and no symptoms. I do not think she requires verapamil in addition to metoprolol succinate. She should continue her anticoagulation. (4) Arteriosclerotic coronary artery disease: Remote history of coronary intervention. No current symptoms suggestive of coronary insufficiency or angina. She should continue aggressive secondary prevention. This will include continuation of rosuvastatin. Unclear if she requires both aspirin and Xarelto. History of Present Illness Reason for Consultation: Syncope Requesting Physician: Mayank Attending Physician: Mark Benedict DO History of Present Illness The patient is an 85-year-old woman with a history of coronary artery disease having undergone coronary intervention quite remotely. She is also known to have paroxysmal atrial fibrillation and has been on anticoagulation. It seems that the patient was returning from the bathroom early this morning when she suffered an injury. It is unclear if the patient lost consciousness prior to the injury or afterwards, but she did fall and hit her head on the floor. This resulted in a minor injury to the occiput. Her son who lives with her heard her fall and called EMS. The patient was brought to the emergency room for evaluation. She was found to be in atrial fibrillation with a slow ventricular response. Patient states she generally gets up a few times at night to go to the bathroom. She ambulates with a walker to the bathroom and from the bathroom. She did not report symptoms of dizziness or lightheadedness leading up to the event. She cannot recall any events afterwards until EMS had arrived at her house. She did not seem to have symptoms of nausea or diaphoresis. She did not report palpitations. In general she is a sedentary individual who generally ambulates around her house. She goes out rarely. Outside of her leg weakness and need to use a walker she has not report other limitations associated with activity. She did not report dyspnea or symptoms of chest pain. She is generally not aware of palpitations and has not had dizziness. The patient was found to have an elevated alcohol level at the time of evaluation. She states that she generally drinks a few glasses of wine in the evening. She states that last evening was no different the most evenings when she will consume 3 glasses of wine over the course of a few hours. Allergies Allergy/AdvReac Type Severity Reaction Status Date / Time shrimp Allergy Intermediate BREAKS OUT Verified 01/12/20 10:15 IN HIVES No Known Drug Allergies Allergy Verified 01/15/20 15:40 Home Medications Medication Instructions Recorded Confirmed Type aspirin 81 mg tablet,delayed 81 mg PO MOFR tab 03/05/19 01/15/20 History release coenzyme Q10 [CoQ-10] 100 mg PO QAM 06/21/19 01/15/20 History naproxen 500 mg PO QAM 06/21/19 11/30/20 History folic acid-vit B6-vit B12 1 tab PO MOWEFR 12/02/19 01/15/20 History furosemide 20 mg tablet 20 mg PO .COMPLEX #90 tab 05/11/20 Rx metoprolol succinate 50 mg 50 mg PO QAM #90 tab 05/17/20 11/30/20 Rx tablet,extended release 24 hr rivaroxaban 15 mg tablet 15 mg PO DAILY #30 tab 07/29/20 11/30/20 Rx rosuvastatin 5 mg tablet See Rx Instructions .ROUTE 10/01/20 11/30/20 Rx .COMPLEX #36 tablet solifenacin 5 mg tablet 5 mg PO DAILY #30 tab 10/21/20 11/30/20 Rx verapamil 120 mg tablet,extended See Rx Instructions .ROUTE 10/21/20 11/30/20 Rx release .COMPLEX #90 tab Patient History Medical History Abdominal abscess Chronic kidney disease, stage 3 Ganglion cyst Hypertension Orthostatic hypotension SIADH (syndrome of inappropriate ADH production) Syncope Surgical History H/O dilation and curettage H/O oral surgery History of cataract surgery History of partial colectomy History of tubal ligation Family History Sister Breast cancer Unknown Diabetes Heart disease Father Myocardial infarction Denies family history of Ovarian cancer Prostate cancer Colorectal cancer Social History Smoking Status: Former smoker Second Hand Exposure: No; Hx Alcohol Use: Yes Alcohol type: wine Hx Substance Use: No Preferred Language: Ivorian Communication Ability: Effective Train Braker Required: No Beliefs That Will Affect Care: None marital status: Current Living Situation: Family Current Living Situation Comment: Lives at home with son Feels Safe at Home: Yes Physical Activity Frequency: Daily Seatbelt Use: always Assistive Devices: Walker Review of Systems Review of Systems: All systems reviewed & are unremarkable except as noted in HPI & below Physical Exam Physical Exam: She is alert and oriented x3. Mood affect appear normal. She answered all questions appropriately. HEENT: Sclerae are anicteric. Pupils are equal and reactive to light and accommodation. Extraocular movements were intact. Contusion to the occipital area. Neuro: Cranial nerves intact Neck: Examination of the submandibular region did not reveal any significant lymphadenopathy. Carotids are palpable bilaterally and free of bruits on auscultation. There was no evidence of jugular venous distention. The thyroid was not enlarged. Lungs: Lungs are clear to auscultation bilaterally. There are no rales wheezes or rhonchi. She has normal respiratory effort without use of accessory muscles. There is normal pulmonary excursion. Cardiac: The rhythm was irregular. S1 and S2 were normal. There are no murmurs on examination. The PMI was not markedly displaced on palpation. Abdomen: The abdomen was soft and nontender. Extremities: Patient has bilateral radial pulses that are equal in intensity. There is no evidence cyanosis or clubbing. There was no evidence of significant peripheral edema bilaterally. Skin: There are no rashes noted on examination today. Results [facility] Data [facility]) Vital Signs (Past 12 Hours) Vital Signs Temp Pulse Pulse Resp BP BP Pulse Ox 11/30/20 07:16 48 L 11/30/20 06:00 36.5 C 73 19 135/66 95 11/30/20 05:30 49 L 18 113/56 L 97 11/30/20 05:00 45 L 16 106/45 L 93 11/30/20 04:31 48 L 21 112/55 L 95 11/30/20 04:01 62 16 121/50 L 94 11/30/20 04:00 53 L 18 90 11/30/20 03:19 45 L 16 136/75 98 11/30/20 03:14 45 L 15 11/30/20 02:56 36.9 C 59 L 18 136/75 94 Laboratory Results Abnormal Lab Results 11/30/20 11/30/20 11/30/20 03:27 03:27 03:27 WBC 6.24 RBC 3.71 L Hgb 12.6 Hct 38.0 MCV 102.4 H MCH 34.0 MCHC 33.2 RDW Std Deviation 45.1 RDW Coeff of Diana 11.9 Plt Count 240 MPV 9.4 Immature Gran % (Auto) 0.2 Neut % (Auto) 54.2 Lymph % (Auto) 35.7 [place] % (Auto) 7.2 Eos % (Auto) 2.2 Baso % (Auto) 0.5 Neut # (Auto) 3.38 Lymph # (Auto) 2.23 [place] # (Auto) 0.45 Eos # (Auto) 0.14 Baso # (Auto) 0.03 Immature Gran # (Auto) 0.01 PT 12.8 H INR 1.3 H APTT 35.0 H PTT Ratio 1.3 Sodium 138 Potassium 3.8 Chloride 102 Carbon Dioxide 26 Anion Gap 10.0 BUN 26 H Creatinine 1.38 H Est Cr Clr Drug Dosing 22.7 Est GFR ( Amer) 39.7 Est GFR (Non-Af Amer) 34.3 BUN/Creatinine Ratio 19.0 Glucose 82 Calcium 9.0 Magnesium 2.1 Total Bilirubin 0.3 Direct Bilirubin 0.1 AST 20 ALT 21 Alkaline Phosphatase 75 Total Creatine Kinase 56 Troponin I < 0.015 Total Protein 7.4 Albumin 3.5 Lipase 179 Ethyl Alcohol mg/dL COVID-19 Eval Order SARS-CoV-2 (PCR) 11/30/20 11/30/20 11/30/20 03:27 04:06 04:06 WBC RBC Hgb Hct MCV MCH MCHC RDW Std Deviation RDW Coeff of Diana Plt Count MPV Immature Gran % (Auto) Neut % (Auto) Lymph % (Auto) [place] % (Auto) Eos % (Auto) Baso % (Auto) Neut # (Auto) Lymph # (Auto) [place] # (Auto) Eos # (Auto) Baso # (Auto) Immature Gran # (Auto) PT INR APTT PTT Ratio Sodium Potassium Chloride Carbon Dioxide Anion Gap BUN Creatinine Est Cr Clr Drug Dosing Est GFR ( Amer) Est GFR (Non-Af Amer) BUN/Creatinine Ratio Glucose Calcium Magnesium Total Bilirubin Direct Bilirubin AST ALT Alkaline Phosphatase Total Creatine Kinase Troponin I Total Protein Albumin Lipase Ethyl Alcohol mg/dL 241.0 H COVID-19 Eval Order Covid19 at [facility] SARS-CoV-2 (PCR) NEGATIVE Diagnostic Findings And neck did not reveal any fractures or acute intracranial abnormalities. Chest x-ray obtained the time admission not reveal any acute cardiopulmonary findings. PG Care Time/CCT Total # of Minutes Spent Total Time Spent with Patient: Total time spent is greater than 50% in coordination of care (as documented) at patient's floor/unit and/or counseling patient: Coding Level of Care Code 27809 Inpt Consult Level 4 Diagnoses Syncope R55 Syncope type: unspecified Bradycardia R00.1 Paroxysmal atrial fibrillation I48.0 Arteriosclerotic coronary artery disease I25.10 (1) Syncope Syncope type: unspecified Qualified Code(s): R55 - Syncope and collapse
--- NOTE | 2020-11-30 12:04 | Electrocardiogram Report ---
Test Reason : Blood Pressure : / mmHG Vent. Rate : 054 BPM Atrial Rate : 047 BPM P-R Int : 000 ms QRS Dur : 074 ms QT Int : 334 ms P-R-T Axes : 000 031 075 degrees QTc Int : 316 ms Poor data quality, interpretation may be adversely affected Atrial fibrillation with slow ventricular response Low voltage QRS Nonspecific T wave abnormality Abnormal ECG When compared with ECG of 02-DEC-2019 13:09, Atrial fibrillation has replaced Sinus rhythm Nonspecific T wave abnormality now evident in Anterolateral leads QT has shortened Confirmed by Neil Cummings ([id number]) on 11/30/2020 12:03:56 PM Referred By: REFERRED SELF Confirmed By:Anthony Cummings
--- NOTE | 2020-11-30 16:58 | XCELERA ---
[id number]
[2020-11-30] MEDS: METOPROLOL SUCC 25MG EXT REL TAB PO SCH (18:08)
--- NOTE | 2020-12-01 08:05 | Medical Student Progress Note ---
Date of Service December 01, 2020 Assessment & Plan (1) Syncope: Pt has a history of A. Fib and is on xarelto, but remains asymptomatic. Does not remember feeling any palpitations, chest pain, or lightheaded when she fell. Does note a decrease in her balance which can be due to decreased sensatio n the toes of her left foot, but also due to her alcohol use. She notes drinking about 3 drinks daily which could contribute to her decrease in balance. Her fall could have been due to arrythmia, orthostasis, or alcohol use or a combination, a clear cause cannot be determined. Cardiology was consulted and recommended stopping verapamil at home and just continuing metoprolol. -Possible d/c today -Hold Xarelot while in Hospital -restart Metoprolol 25mg -discontinue verapamil -Telemetry -Fall precautions Syncope type: unspecified Qualified Code(s): R55 - Syncope and collapse (2) Alcohol use: Pt drinks about 3 glasses of wine daily which may be contributing to her balance issues. No signs of withdrawal while in hospital. -Consulted on limiting alcohol use as this could be contributing to balance issues. (3) Paroxysmal atrial fibrillation: Pt is currently in A. Fib but is asymptomatic and has been bradycardic. Will d/c verapamil and continue metoprolol on d/c -Holding meds for now. (4) Chronic kidney disease, stage 3: Baseline Cr=1.38, monitor BUN/Cr and BMP Chronic kidney disease stage 3 subtype: unspecified whether 3a or 3b Qualified Code(s): N18.30 - Chronic kidney disease, stage 3 unspecified Admission and Anticipated Discharge Date Admission Date: November 30, 2020 Subjective Pt is 85 yo F w/ Hx of Afib, HTN, CKD, and CVA 20 years ago, that came into the ER last night after being found on the floor of bathroom.In the ER, pt had CT done which was negative fro acute findings and an ECG done which showed A.Fib. Lab work came back normal except for Coag studies which show elevated PT/INR, but not in therapeutic range. EtOH (+). Today, pt is feeling much better, she denies any dizziness, LH, or palpitations Physical Exam Constitutional: WD/WN, vitals as above Eyes: PERRL, conjunctivae normal, anicteric sclerae Neck: trachea midline, no thyromegaly Respiratory: normal respiratory effort, lungs clear to auscultation Cardiovascular: Rate/Rhythm: + irregularly irregular Heart Sounds: no murmur Vessels: radial pulses present Gastrointestinal (Abdomen): normal bowel sounds, soft, nontender, no hepatosplenomegaly (Has ostomy bag taped on Left side.) Musculoskeletal: R. Shoulder No bony deformities, inflammation in rotator cuff, biceps tendon, or acromioclavicular joint. Limited ROM with ABD. Decreased strength in shoulder upon ABD and ER [4/5]. Pain in posterior shoulder along teres minor, infraspinatus. Empty Can (+), belly press (-) Results & Data ([facility]) Vital Signs (Past 12 Hours) Vital Signs Temp Pulse Pulse Resp BP BP Pulse Ox 12/01/20 07:27 37 C 79 18 136/69 95 12/01/20 03:00 37.2 C 80 18 130/69 95 12/01/20 02:05 85 11/30/20 23:00 37 C 84 20 129/68 95 11/30/20 19:58 36.8 C 85 18 151/65 H 97 Diagnostic Findings Laboratory Results WBC 6.24 K/uL (4.8-10.8) 11/30/20 03:27 RBC 3.71 M/uL (4.2-5.4) L 11/30/20 03:27 Hgb 12.6 g/dL (12.0-16.0) 11/30/20 03:27 Hct 38.0 % (37-47) 11/30/20 03:27 MCV 102.4 fL (80-100) H 11/30/20 03:27 MCH 34.0 pg (25-34) 11/30/20 03:27 MCHC 33.2 g/dL (32-36) 11/30/20 03:27 RDW Std Deviation 45.1 fL (36.4-46.3) 11/30/20 03:27 RDW Coeff of Diana 11.9 % (11.5-14.5) 11/30/20 03:27 Plt Count 240 K/uL (130-400) 11/30/20 03:27 MPV 9.4 fL (7.4-10.4) 11/30/20 03:27 Immature Gran % (Auto) 0.2 % 11/30/20 03:27 Neut % (Auto) 54.2 % 11/30/20 03:27 Lymph % (Auto) 35.7 % 11/30/20 03:27 [place] % (Auto) 7.2 % 11/30/20 03:27 Eos % (Auto) 2.2 % 11/30/20 03:27 Baso % (Auto) 0.5 % 11/30/20 03:27 Neut # (Auto) 3.38 K/uL (1.4-6.5) 11/30/20 03:27 Lymph # (Auto) 2.23 K/uL (1.2-3.4) 11/30/20 03:27 [place] # (Auto) 0.45 K/uL (0.11-0.59) 11/30/20 03:27 Eos # (Auto) 0.14 K/uL (0-0.5) 11/30/20 03:27 Baso # (Auto) 0.03 K/uL (0-0.2) 11/30/20 03:27 Immature Gran # (Auto) 0.01 K/uL (0.00-0.02) 11/30/20 03:27 PT 12.8 Seconds (9.0-12.0) H 11/30/20 03:27 INR 1.3 (0.9-1.1) H 11/30/20 03:27 APTT 35.0 Seconds (21.0-31.0) H 11/30/20 03:27 PTT Ratio 1.3 11/30/20 03:27 Sodium 138 mmol/L (136-145) 11/30/20 03:27 Potassium 3.8 mmol/L (3.5-5.1) 11/30/20 03:27 Chloride 102 mmol/L (98-107) 11/30/20 03:27 Carbon Dioxide 26 mmol/L (21-32) 11/30/20 03:27 Anion Gap 10.0 (3-11) 11/30/20 03:27 BUN 26 mg/dl (7-18) H 11/30/20 03:27 Creatinine 1.38 mg/dl (0.6-1.2) H 11/30/20 03:27 Est Cr Clr Drug Dosing 22.7 ml/min 11/30/20 03:27 Est GFR ( Amer) 39.7 ml/min 11/30/20 03:27 Est GFR (Non-Af Amer) 34.3 ml/min 11/30/20 03:27 BUN/Creatinine Ratio 19.0 (10-20) 11/30/20 03:27 Glucose 82 mg/dl (70-99) 11/30/20 03:27 Calcium 9.0 mg/dl (8.5-10.1) 11/30/20 03:27 Magnesium 2.1 mg/dl (1.8-2.4) 11/30/20 03:27 Total Bilirubin 0.3 mg/dl (0.2-1) 11/30/20 03:27 Direct Bilirubin 0.1 mg/dl (0-0.2) 11/30/20 03:27 AST 20 U/L (15-37) 11/30/20 03:27 ALT 21 U/L (12-78) 11/30/20 03:27 Alkaline Phosphatase 75 U/L (45-117) 11/30/20 03:27 Total Creatine Kinase 56 U/L (26-192) 11/30/20 03:27 Troponin I < 0.015 ng/ml (0-0.045) 11/30/20 03:27 Total Protein 7.4 gm/dl (6.4-8.2) 11/30/20 03:27 Albumin 3.5 gm/dl (3.4-5.0) 11/30/20 03:27 Lipase 179 U/L (73-393) 11/30/20 03:27 Ethyl Alcohol mg/dL 241.0 mg/dl (0-3) H 11/30/20 03:27 COVID-19 Eval Order Covid19 at [facility] 11/30/20 04:06 SARS-CoV-2 (PCR) NEGATIVE (Negative) 11/30/20 04:06
[2020-12-01 08:20] LABS: Basophils # (auto) 0.02 K/uL (0-0.2); Basophils % (auto) 0.4 %; Eosinophils # (auto) 0.05 K/uL (0-0.5); Eosinophils % (auto) 0.9 %; Immature Granulocytes # (auto) 0.01 K/uL (0.00-0.02); Immature Granulocytes % (auto) 0.2 %; Lymphocytes # (auto) 1.13 K/uL (1.2-3.4); Lymphocytes % (auto) 21.3 %; Mean Corpuscular Hgb Conc 32.4 g/dL (32-36); Mean Corpuscular Volume 102.1 fL (80-100); Mean Platelet Volume 9.9 fL (7.4-10.4); Monocytes # (auto) 0.72 K/uL (0.11-0.59); Monocytes % (auto) 13.6 %; Neutrophils # (auto) 3.37 K/uL (1.4-6.5); Neutrophils % (auto) 63.6 %; Platelet Count 217 K/uL (130-400); RDW Coefficient of Variation 12.4 % (11.5-14.5); RDW Standard Deviation 46.7 fL (36.4-46.3); Red Blood Count 3.33 M/uL (4.2-5.4)
[2020-12-01] MEDS: METOPROLOL SUCC 25MG EXT REL TAB PO SCH (08:33)
[2020-12-01 08:49] LABS: BUN Creatinine Ratio 19.3 (10-20); Calcium 9.5 mg/dl (8.5-10.1); Est GFR (African American) 40.5 ml/min; Est GFR (Non-African American) 34.9 ml/min; Potassium 3.7 mmol/L (3.5-5.1)
[2020-12-01] MEDS ORDERED: THIAMINE HCL 100 MG TAB PO SCH (09:00)
[2020-12-01] MEDS ORDERED: ROSUVASTATIN CALCIUM 5 MG TAB PO SCH (09:00)
[2020-12-01 09:04] LABS: Folate (Folic Acid) > 20.00 ng/ml (>5.38); Vitamin B12 437 pg/ml (193-986)
--- NOTE | 2020-12-01 16:02 | Discharge Summary ---
Date of Service December 01, 2020 Admission HPI Per Admitting Provider Josiane Shannon is an 85yo C female with history of HTN, HLP, PAF on Xarelto anticoagulation presenting after syncopal event. Patient does not fully remember the events preceding the fall. She states she was in her bathroom when she passed out, struck her head. She was found laying on the bathroom floor, confused and covered in stool. She denies chest pain, palpitations, seizure like activity, numbness, tingling or weakness. No pain, No additional complaints at this time Patient does drink EtOH on a regular basis- had 3 glasses of wine prior to arrival this evening. Denies history of EtOH withdrawal symptoms. She has received both doses of Covid-19 vaccine ER Course: Banana bag, NSS x 500mL Principal Diagnosis Syncope Discharge Exam Constitutional WD/WN, vitals as above Eyes PERRL, conjunctivae normal, anicteric sclerae Respiratory normal respiratory effort, lungs clear to auscultation Auscultation: no crackles, no rales, no rhonchi and no wheezes Cardiovascular Rate/Rhythm: regular rate and regular rhythm Heart Sounds: no gallop, no murmur and no cardiac rub Vessels: normal peripheral pulses; no JVD Extremities: no edema Gastrointestinal (Abdomen) Inspection/Auscultation: normal bowel sounds; abdomen not distended Percussion/Palpation: abdomen soft; abdomen nontender and no guarding Musculoskeletal no cyanosis or clubbing, extremities motor strength 5/5 Neurologic PERRL, EOMI, accommodation nl, no face palsy, no dysarthria CN's II-XI intact bilaterally Psychiatric Orientation: alert and oriented x 3 Discharge Data Allergies Allergy/AdvReac Type Severity Reaction Status Date / Time shrimp Allergy Intermediate BREAKS OUT Verified 01/12/20 10:15 IN HIVES No Known Drug Allergies Allergy Verified 01/15/20 15:40 Consultations 11/30/20 04:13 ED Decision to Admit Stat 11/30/20 06:22 Consult Cardiology Routine Ordered Studies 11/30/20 03:10 CT cervical spine wo con Urgent CT head/brain wo con Urgent Hospital Course (1) Syncope: Josiane Shannon is a 85y/o female with history on Xarelto, HTN, HLD, Stage 3 CKD; who presented for further evaluation following a fall while on blood thinners. Syncope: - no recollection of preceding symptoms prior to the fall - multiple potential etiologies of syncopal event, however unclear source following testing - She notes drinking about 3 glasses of wine earlier in the evening - CT Head negative for acute intracranial abnormality or calvarial fracture - ECHO hyperdynamic left ventricle, EF 60-65%, moderate dilation of left atrium, mild to moderate mitral regurg - alcohol level of 241 on admission - noted to be hypotensive and bradycardic during admission - decrease Metoprolol to 25mg daily, discontinue verapamil - advised to discontinue drinking as this potentially could have lead to the fall HTN: - discontinue verapamil - continue decreased dose of Metoprolol HLD: - continue rosuvastatin every other day Total Time Total Time Spent Total Time Spent (In Minutes): >30 Discharge Plan Discharge Items Patient Disposition: Home - Home Health Services Reason For Visit: FALL,BRADYCARDIA Discharge Diagnosis: syncope Activity: Per Instructions section Non-emergency contact: Primary Care Provider Call non-emergency contact if: you have any medication questions and your symptoms worsen Follow-up/Referrals: Lisandra Barnhart MD [Primary Care Provider] - 12/03/20 11:20 am (If you have any questions or need to change this appointment, please call [phone].) Diet: Regular Addtl Attending Provider Instructions: You were seen and admitted following a fall. During this admission, it was noticed that your blood pressure was on the lower end and that your heart rate was on the lower end. It is difficult to determine if this or the alcohol in your system could have caused your fall. With your blood pressure and heart rate being on the lower end we have cut your blood pressure medication (verapamil), and decreased the dose of your metoprolol to 25mg daily. As these things can fluctuate it is important that we monitor your blood pressure over the coming weeks to ensure that your blood pressure remains stable. If you notice you are having higher readings and having symptoms with them it will be important for you to discuss this with your primary care doctor for potentially restarting your medications. Pending Studies at Discharge: No Stand-Alone Forms: My [employer], Smoking Cessation Medications and DC Order Prescriptions: New metoprolol succinate 25 mg Tablet Extended Release 24 Hr 25 mg PO QAM 30 Days Qty: 30 RF: 0 Continued furosemide 20 mg tablet 20 mg PO .COMPLEX Qty: 90 RF: 3 rosuvastatin 5 mg tablet See Rx Instructions .ROUTE .COMPLEX Qty: 36 RF: 3 solifenacin [Vesicare] 5 mg tablet 5 mg PO DAILY Qty: 30 RF: 2 aspirin 81 mg tablet,delayed release (DR/EC) 81 mg PO MOFR RF: 0 Xarelto 15 mg tablet 15 mg PO DAILY Qty: 30 RF: 2 coenzyme Q10 [CoQ-10] 100 mg Capsule 100 mg PO QAM RF: 0 naproxen 500 mg tablet 500 mg PO QAM RF: 0 Hold Instructions: not safe folic acid-vit B6-vit B12 2.2-25-1 mg tablet 1 tab PO MOWEFR RF: 0 Discontinued metoprolol succinate 50 mg tablet extended release 24 hr 50 mg PO QAM Qty: 90 RF: 3 verapamil 120 mg tablet extended release See Rx Instructions .ROUTE .COMPLEX Qty: 90 RF: 3 Discharge Orders: Discharge Order (Routine); Ordered 12/01/20 Ordered By: Omar Barroso Admission Data Admit Date/Time: 11/30/20 04:46 Attending Provider: Mark Benedict Admit Provider: Marii Talley Primary Care Provider: Lisandra Barnhart V. Other Providers: Marii Talley ; Kel Lopez ; [facility] Other Interventions: Discharge Summary Assessment (RN) Last Done: 12/01/20 16:31 Supervising Physician Co-Signing Physician Notes atient seen and examined with PGY-2 Dr. Barroso. Agree with history, exam findings, assessment and plan of care as outlined. In brief, Ms. Shannon is an 85 year old female with history of afib, HTN CKD and prior CVA many years ago admitted for syncope. Does not recall events of the syncopal episode. Feels well. Has not had any more episodes of bradycardia. No dizziness. Well appearing. Heart rate appropriate. No murmur or rub. Lungs clear to auscultation. 1. Syncope. Echo with preserved EF. ?secondary to bradycardia which is now resolved (see below) 2. Closed head injury. CT without bleed. Neuro checks. No signs/symptoms of concussion. 3. pAF. Bradycardic. Discontinued home verapamil. Restarted metoprolol at lower dose (25mg) now that HR is improving. Restarted home anticoagulation. 4. ETOH use. Discussed avoid regular ETOH consumption as this may contribute to balance issues. 5. Right shoulder pain. Based on prior humeral radiographs, suspect that she has a chronic rotator cuff tear based on the superior migration of the humeral head and flattening of the acromial arch. 6. Recurrent falls. PT/OT. Dispo: Discharge home. I personally spent 25 minutes discharge planning for this patient. Resident Activity Tracking Resident Involvement: Resident Care Provided Care Provided: Adult Hospital Medicine
== END 2020-12-01 16:55 | disposition home health service (06) ==
LOC: ED 03:04 → SUATTDRO 04:46 → 2N 04:46 → INTOOBSV 04:46 → 2N 05:48

== ENCOUNTER 2022-03-19 20:58 | Inpatient (IN) ==
[2022-03-19] MEDS ORDERED: SODIUM CHLORIDE 0.9% 500 ML IV SCH (21:45)
[2022-03-19 21:53] LABS: iSTAT Hemoglobin 12.9 g/dl (12.0-16.0); iSTAT Ionized Calcium 1.09 mmol/l (1.12-1.32); iSTAT Potassium 3.9 mmol/L (3.3-5.0)
--- NOTE | 2022-03-19 22:01 | XRay Report ---
XR chest 1V portable CLINICAL HISTORY: weakness TECHNIQUE: Single frontal radiograph of the chest was obtained. Comparison: Comparison is made to chest radiograph 11/30/[address] thorax 09/13/2015 FINDINGS: No lines and tubes are seen. Calcified aortic knob is seen. The lungs are clear. No evidence of pleur al effusion or pneumothorax. Degenerative changes are seen in the right greater than left shoulder jabari ints. IMPRESSION: No acute chest disease. ACT 112: Negative or not required by law. Electronically signed by: Baltazar Gastelum M.D. 03/19/2022 10:00 PM
--- NOTE | 2022-03-19 22:09 | CT Scan Report ---
CT head/brain wo con CLINICAL HISTORY: ams Technique: Contiguous axial CT images of the head were acquired from the base of the skull to the adriel ivelisse without intravenous contrast administration. Images were viewed in brain, subdural and bone [facility]. Automated dose lowering techniques and/or adjustment according to patient size were utilized for this exam. Comparison: Comparison is made to CT head 11/30/2020 Findings: Areas of decreased attenuation are present in the periventricular and subcortical white matter bilate rally consistent with small vessel ischemic disease. Generalized cerebral atrophy with commensurate e nlargement of the ventricles, sulci, and cisterns is also present. There is no acute intracranial hem orrhage or evidence of acute territorial infarction. No shift of the midline structures, mass effect, or extra-axial abnormalities are shown. Atherosclerotic calcifications are present in the intracran ial segments of the internal carotid arteries. Focal encephalomalacia in the left MCA territory is un changed. Imaged portions of the paranasal sinuses and mastoid air cells are clear. The orbits appear normal. There are no acute fractures of the calvaria. Soft tissue swelling is seen in the occiput. Impression: No acute intracranial hemorrhage or skull fractures. Scalp swelling is seen in the occiput. ACT 112: Negative or not required by law. Electronically signed by: Baltazar Gastelum M.D. 03/19/2022 10:06 PM
--- NOTE | 2022-03-19 22:14 | CT Scan Report ---
CT cervical spine wo con CLINICAL HISTORY: ams TECHNIQUE: Multidetector row helical CT of the cervical spine was performed without administration of intravenous contrast. Coronal and sagittal reformations were obtained. Automated dose lowering techn iques and/or adjustment according to patient size were utilized for this exam. Comparison: Comparison is made to CT cervical spine 11/30/2020 FINDINGS: No acute fractures or subluxations are identified. Degenerative changes are seen in the visualized sp ine. The alignment is normal. Biapical scarring is seen in the lungs. Incidentally noted is prominent cerumen in the bilateral external auditory canals. IMPRESSION: Degenerative changes without evidence of acute bony injury. ACT 112: Negative or not required by law. Electronically signed by: Baltazar Gastelum M.D. 03/19/2022 10:11 PM
--- NOTE | 2022-03-19 22:15 | CT Scan Report ---
CT facial bones wo con CLINICAL HISTORY: ams TECHNIQUE: Multidetector row helical CT of the maxillofacial bones was performed without administrati on of intravenous contrast, and processed with bone and soft tissue algorithms. Coronal and sagittal reformations were obtained. Automated dose lowering techniques and/or adjustment according to patient size were utilized for this exam. Comparison: None available at the time of this dictation. FINDINGS: Nasal bones are normal. The mandible is intact. The temporomandibular joints are anatomically aligned . Pterygoid plates are intact. Zygomatic arches are intact. The globes are normal and symmetric, without proptosis, obvious disruption or lens dislocation. Ther e is no orbital radiopaque foreign body. The orbital frost are intact. The retrobulbar fat is without evidence of disruption. Extraocular muscles are normal and symmetric. Optic nerve sheath complexes are normal in course and caliber. Sphenoid sinus opacification is seen. IMPRESSION: 1. No acute facial fracture. 2. Sphenoid sinus disease. 3. Cerumen in the bilateral external auditory canals. ACT 112: Negative or not required by law. Electronically signed by: Baltazar Gastelum M.D. 03/19/2022 10:14 PM
[2022-03-19] MEDS ORDERED: SODIUM CHLORIDE 0.9% 500 ML IV ONE (22:40)
[2022-03-19 22:42] LABS: Basophils # (auto) 0.07 K/uL (0-0.2); Eosinophils # (auto) 0.08 K/uL (0-0.50); Eosinophils % (auto) 1.2 %; Hematocrit (blood only) 36.1 % (34.1-44.9); Hemoglobin 12.4 g/dl (12.0-16.0); Immature Granulocytes # (auto) 0.04 K/uL (0.00-0.02); Immature Granulocytes % (auto) 0.6 %; Lymphocytes # (auto) 2.49 K/uL (1.2-3.4); Lymphocytes % (auto) 36.9 %; Mean Corpuscular Hemoglobin 34.3 pg (25.0-34.0); Mean Corpuscular Hgb Conc 34.3 g/dL (32.0-36.0); Mean Platelet Volume 9.9 fL (9.4-12.3); Monocytes # (auto) 0.64 K/uL (0.24-0.82); Monocytes % (auto) 9.5 %; Neutrophils # (auto) 3.43 K/uL (1.4-6.5); Neutrophils % (auto) 50.8 %; Platelet Count 231 K/uL (130-400); RDW Coefficient of Variation 11.9 % (11.5-14.5); RDW Standard Deviation 43.8 fL (36.4-46.3); Red Blood Count 3.61 M/uL (3.93-5.22); White Blood Count 6.75 K/ul (4.8-10.8)
[2022-03-19] MEDS ORDERED: fentaNYL citrate 100 MCG/2 ML VIAL IV STA (23:51)
[2022-03-19 23:56] LABS: Albumin Globulin Ratio 1.5 (0.9-2); BUN Creatinine Ratio 19.1 (10-20); Bilirubin,Total 0.7 mg/dl (0.2-1.0); Calcium 9.7 mg/dl (8.5-10.1); Creatinine Clr Calc Pharmacy 23.1 ml/min; Est GFR (African American) 35.1 ml/min; Est GFR (Non-African American) 30.3 ml/min; Globulin 2.7 gm/dl (2.5-4.0); Potassium 4.1 mmol/L (3.5-5.1); Total Protein 6.7 gm/dl (6.0-8.3); Troponin I High Sensitivity 5.7 pg/ml (0-14)
--- NOTE | 2022-03-20 00:34 | History & Physical Report ---
Date of Service March 20, 2022 Assessment & Plan (1) Closed right hip fracture: Plan: Josiane Shannon is an 86-year-old female with past medical history of hypertension, CKD stage III, paroxysmal A. fib on Xarelto, hyperlipidemia, prior falls due to alcohol intoxication, iron deficiency anemia, urinary incontinence who presents due to a fall. Fall with right hip fracture Unclear cause for fall as patient does not remember and it was unwitnessed of note, patient has history of prior fall due to alcohol intoxication Ordered addition of blood alcohol level to previously drawn labs Did have trauma to head with negative CT head, no acute FND did have some bleeding from the back of the head, lab work without anemia to indicate significant blood loss Hip/pelvic x-ray consistent with right hip fracture Consult orthopedics Hold Xarelto in anticipation of possible surgical intervention Fall precautions Admit to [facility] Will need PT/OT eval prior to return home CKD stage III Baseline seems to be around 1.4-1.5 Admission creatinine consistent with baseline, no JOSE Monitor kidney function Hyponatremia in the setting of SIADH Sodium 132 on admission Continue furosemide MWF Monitor Hypertension/A. fib Continue metoprolol and verapamil Hold Xarelto Hyperlipidemia Continue rosuvastatin Overactive bladder Continue Solifenacin DVT prophylaxis: Usually on Xarelto, on hold at this time Diet: N.p.o., gentle IV hydration with NSS at 80 cc/h x 1 bag Dispo: Admit to [facility] CODE STATUS: Full (2) Alcohol use: (3) Hypertension: (4) Chronic kidney disease, stage 3: (5) Chronic anticoagulation: (6) Paroxysmal atrial fibrillation: (7) Hyperlipidemia: (8) Fall: (9) SIADH (syndrome of inappropriate ADH production): History of Present Illness Primary Care Provider: Lisandra Barnhart MD Josiane Shannon is an 86-year-old female with past medical history of hypertension, CKD stage III, paroxysmal A. fib on Xarelto, hyperlipidemia, prior falls due to alcohol intoxication, iron deficiency anemia, urinary incontinence who presents due to a fall. Patient seen in room with no accompanying family member. All information gathered from patient and chart review. Patient arrived via ambulance due to an unwitnessed fall. She was reportedly found a few moments later by her son. The patient states she does not remember falling and does not recall many details about being brought to the hospital when asked directly if she was brought by ambulance she replies "I think so". The patient was felt to have blood on the back of her head. She states she has some generalized achiness, as well as right hip pain with movement. Also reports some right shoulder pain. Denies headache at this time. No nausea, vomiting, dizziness, chest pain, palpitations, shortness of breath, fever, chills, weakness, numbness, tingling. Work-up in the ED significant for hyponatremia to 132, creatinine of 1.52, elevated anion gap. Hip/pelvic x-ray consistent with right hip fracture. Shoulder x-ray without acute fractures. CT head showing no acute intracranial hemorrhage or skull fractures, scalp swelling seen in the occiput. CT cervical spine without acute fracture. Face CT showing sphenoid sinus disease. Chest x- ray negative. Received NSS 1 L bolus and half liter bolus in ED as well as fentanyl 50 mcg IV x1, Tdap vaccination. Allergies Allergy/AdvReac Type Severity Reaction Status Date / Time shrimp Allergy Intermediate BREAKS OUT Verified 03/19/22 23:10 IN [facility] Home Medications Medication Instructions Recorded Confirmed Type coenzyme Q10 100 mg capsule 100 mg PO QAM 06/21/19 03/19/22 History (CoQ-10) rivaroxaban 15 mg tablet (Xarelto) 15 mg PO DAILY #30 tabs 07/29/20 03/19/22 Rx metoprolol succinate 50 mg 50 mg PO DAILY #90 tabs 08/12/21 03/19/22 Rx tablet,extended release 24 hr solifenacin 5 mg tablet (Vesicare) 5 mg PO DAILY #30 tabs 08/30/21 03/19/22 Rx verapamil 120 mg tablet,extended 120 mg PO DAILY #90 tabs 09/12/21 03/19/22 Rx release furosemide 20 mg tablet 20 mg PO 3XWK 03/19/22 03/19/22 History rosuvastatin 5 mg tablet 5 mg PO 3XWK 03/19/22 03/19/22 History Past Med/Surg History Medical History (Updated 03/20/22 @ 03:52 by Yissel Kennedy PA-C) Abdominal abscess Alcohol intoxication Chronic kidney disease, stage 3 Closed head injury Current use of usp anticoagulation Fall Ganglion cyst GI bleed Hypertension Orthostatic hypotension SIADH (syndrome of inappropriate ADH production) Syncope Syncope Ventral hernia Surgical History H/O dilation and curettage H/O oral surgery History of cataract surgery History of partial colectomy History of tubal ligation Family History Sister Breast cancer Unknown Diabetes Heart disease Father Myocardial infarction Denies family history of Ovarian cancer Prostate cancer Colorectal cancer Social History Smoking Status: Never smoker Second Hand Exposure: No; Hx Alcohol Use: Yes Alcohol type: wine Hx Substance Use: No Preferred Language: [place] Communication Ability: Effective Track Layer Head Required: No Beliefs That Will Affect Care: None marital status: / Current Living Situation: Family Current Living Situation Comment: Lives at home with son Feels Safe at Home: Yes Physical Activity Frequency: Daily Seatbelt Use: always Assistive Devices: Glasses and Walker Review of Systems Review of Systems: Per HPI Physical Exam Physical Exam: GENERAL: WD/WN. NAD. HEENT: Posterior head with dried blood diffusely. No active bleeding. PERRL, EOMI. Moist mucous membranes. NECK: No JVD. No lymphadenopathy. CHEST/LUNGS: CTAB A/P. No crackles, wheezes, rales, rhonchi. HEART: RRR. No m/g/r. ABDOMEN: NT/ND, soft. BS+ x4 EXTREMITIES: Tenderness to palpation of right hip. Range of motion of right hip limited due to pain. No cyanosis, no clubbing, no edema. SKIN: Warm and dry. No rashes or lesions. PSYCHIATRIC: Alert and oriented to person and place but unable to state date. Euthymic affect, no SI, no pressured speech, no hallucinations NEUROLOGIC: No FND. CN II-XII grossly intact. Results & Data Results & Data ([facility]) Vital Signs (Past 12 Hours) Vital Signs Temp Pulse Resp BP Pulse Ox O2 Del Method 03/19/22 23:20 64 22 99 03/19/22 23:20 125/64 03/19/22 23:10 78 25 H 96 03/19/22 23:00 66 19 98 03/19/22 22:50 65 22 96 03/19/22 22:40 65 25 H 100 03/19/22 22:30 65 21 99 03/19/22 22:20 85 19 100 03/19/22 22:10 65 24 95 03/19/22 22:00 65 22 100 03/19/22 21:50 69 27 H 92 03/19/22 21:46 151/108 H 03/19/22 21:46 67 24 100 03/19/22 21:45 39 H 100 03/19/22 21:33 100 Room Air 03/19/22 21:14 36.5 C 63 16 129/79 96 Room Air Supervising Physician Co-Signing Physician Notes Attending addendum: I have physically seen this patient, have supervised the medical residents activities, and agree with the H&P unless as otherwise noted. Assessment and Plan: Closed right hip fracture status post mechanical fall/alcohol intoxication- Contributing factors likely including UTI and alcohol intoxication- NPO except medications Hold Xarelto admit to medical surgical Consult orthopedic surgery Alcohol intoxication- AWSS protocol Counseling Urinary tract infection- Follow urine culture and sensitivity Ceftriaxone 1 g IV daily Hypertension/atrial fibrillation- Hold Xarelto Continue metoprolol and verapamil with hold parameters NSS at 80 mils per hour x1 L Remaining orders and notations as noted Resident Activity Tracking Resident Involvement: Resident Care Provided Care Provided: Adult Hospital Medicine (1) Chronic kidney disease, stage 3 Chronic kidney disease stage 3 subtype: unspecified whether 3a or 3b Qualified Code(s): N18.30 - Chronic kidney disease, stage 3 unspecified (2) Hypertension Hypertension type: essential hypertension Qualified Code(s): I10 - Essential (primary) hypertension
[2022-03-20] MEDS ORDERED: DIPHTHERIA/TETANUS/PERTUSSIS 0.5 ML SYR/VIAL IM ONE ×2 (01:09→04:30)
--- NOTE | 2022-03-20 01:22 | Emergency Department Note ---
History of Present Illness General Chief complaint: Fall Stated complaint: FALL Time Seen by Provider: 03/19/22 21:26 History of Present Illness This 86-year-old presents to the ER complaining of fall with head injury and hip pain and shoulder pain Location: Head shoulder hip Quality: Painful Severity: Moderate Duration: today Timing: today Context: Family found her on the ground and called EMS Modifying factors: better with rest; worse with activity Patient states she is not sure how she fell. She is on Xarelto. Patient complains of headache, shoulder and hip pain on the right side. She is not sure how long she was down. Unsure of last tetanus. Patient appears confused with a large scalp hematoma. She was emergently sent down for imaging upon my initial evaluation. Home Medications Medication Instructions Recorded Confirmed Type coenzyme Q10 100 mg capsule 100 mg PO QAM 06/21/19 03/19/22 History (CoQ-10) rivaroxaban 15 mg tablet (Xarelto) 15 mg PO DAILY #30 tabs 07/29/20 03/19/22 Rx metoprolol succinate 50 mg 50 mg PO DAILY #90 tabs 08/12/21 03/19/22 Rx tablet,extended release 24 hr solifenacin 5 mg tablet (Vesicare) 5 mg PO DAILY #30 tabs 08/30/21 03/19/22 Rx verapamil 120 mg tablet,extended 120 mg PO DAILY #90 tabs 09/12/21 03/19/22 Rx release furosemide 20 mg tablet 20 mg PO [id number] 03/19/22 03/19/22 History rosuvastatin 5 mg tablet 5 mg PO [id number] 03/19/22 03/19/22 History Allergies Allergy/AdvReac Type Severity Reaction Status Date / Time shrimp Allergy Intermediate BREAKS OUT Verified 03/19/22 23:10 IN HIVES Past Med/Surg History Medical History (Updated 03/20/22 @ 03:52 by Yissel Kennedy PA-C) Abdominal abscess Alcohol intoxication Chronic kidney disease, stage 3 Closed head injury Current use of termite exterminator anticoagulation Fall Ganglion cyst GI bleed Hypertension Orthostatic hypotension SIADH (syndrome of inappropriate ADH production) Syncope Syncope Ventral hernia Surgical History H/O dilation and curettage H/O oral surgery History of cataract surgery History of partial colectomy History of tubal ligation Family History Sister Breast cancer Unknown Diabetes Heart disease Father Myocardial infarction Denies family history of Ovarian cancer Prostate cancer Colorectal cancer Social History Smoking Status: Never smoker Second Hand Exposure: No; Hx Alcohol Use: Yes Alcohol type: wine Hx Substance Use: No Preferred Language: Andorran Communication Ability: Effective Postmaster Relief Required: No Beliefs That Will Affect Care: None marital status: / Current Living Situation: Family Current Living Situation Comment: Lives at home with son Feels Safe at Home: Yes Physical Activity Frequency: Daily Seatbelt Use: always Assistive Devices: Glasses and Walker Review of Systems A total of 10 systems reviewed and were otherwise negative Physical Exam Vital Signs Vital Signs - 24 hr 03/19/22 21:14 03/19/22 21:33 03/19/22 21:45 Temperature 36.5 C Temperature Source Oral Pulse Rate 63 Pulse Rate from SpO2 Sensor 68 Respiratory Rate 16 39 H Respiratory Effort / Characteristics Non-Labored Spontaneous Respiratory Depth Normal Blood Pressure 129/79 Blood Pressure Mean 95 Pulse Oximetry 96 100 100 Oxygen Delivery Method Room Air Room Air Sepsis Recent Fever Within 48 Hours No Sepsis New/Unexplained Change in Mental Status No Sepsis Action Taken by Nursing No Action Required 03/19/22 21:46 03/19/22 21:46 03/19/22 21:50 Temperature Temperature Source Pulse Rate 67 69 Pulse Rate from SpO2 Sensor 68 66 Respiratory Rate 24 27 H Respiratory Effort / Characteristics Respiratory Depth Blood Pressure 151/108 H Blood Pressure Mean 122 Pulse Oximetry 100 92 Oxygen Delivery Method Sepsis Recent Fever Within 48 Hours Sepsis New/Unexplained Change in Mental Status Sepsis Action Taken by Nursing 03/19/22 22:00 03/19/22 22:10 03/19/22 22:20 Temperature Temperature Source Pulse Rate 65 65 85 Pulse Rate from SpO2 Sensor 66 66 67 Respiratory Rate 22 24 19 Respiratory Effort / Characteristics Respiratory Depth Blood Pressure Blood Pressure Mean Pulse Oximetry 100 95 100 Oxygen Delivery Method Sepsis Recent Fever Within 48 Hours Sepsis New/Unexplained Change in Mental Status Sepsis Action Taken by Nursing 03/19/22 22:30 03/19/22 22:40 03/19/22 22:50 Temperature Temperature Source Pulse Rate 65 65 65 Pulse Rate from SpO2 Sensor 65 65 65 Respiratory Rate 21 25 H 22 Respiratory Effort / Characteristics Respiratory Depth Blood Pressure Blood Pressure Mean Pulse Oximetry 99 100 96 Oxygen Delivery Method Sepsis Recent Fever Within 48 Hours Sepsis New/Unexplained Change in Mental Status Sepsis Action Taken by Nursing 03/19/22 23:00 03/19/22 23:10 03/19/22 23:20 Temperature Temperature Source Pulse Rate 66 78 Pulse Rate from SpO2 Sensor 66 64 Respiratory Rate 19 25 H Respiratory Effort / Characteristics Respiratory Depth Blood Pressure 125/64 Blood Pressure Mean 84 Pulse Oximetry 98 96 Oxygen Delivery Method Sepsis Recent Fever Within 48 Hours Sepsis New/Unexplained Change in Mental Status Sepsis Action Taken by Nursing 03/19/22 23:20 03/19/22 23:30 03/19/22 23:40 Temperature Temperature Source Pulse Rate 64 75 64 Pulse Rate from SpO2 Sensor 64 62 63 Respiratory Rate 22 25 H 20 Respiratory Effort / Characteristics Respiratory Depth Blood Pressure Blood Pressure Mean Pulse Oximetry 99 95 100 Oxygen Delivery Method Sepsis Recent Fever Within 48 Hours Sepsis New/Unexplained Change in Mental Status Sepsis Action Taken by Nursing 03/19/22 23:50 03/20/22 00:00 03/20/22 00:10 Temperature Temperature Source Pulse Rate 64 64 Pulse Rate from SpO2 Sensor Respiratory Rate 22 24 Respiratory Effort / Characteristics Respiratory Depth Blood Pressure Blood Pressure Mean Pulse Oximetry 96 96 Oxygen Delivery Method Sepsis Recent Fever Within 48 Hours Sepsis New/Unexplained Change in Mental Status Sepsis Action Taken by Nursing 03/20/22 00:16 03/20/22 00:20 03/20/22 00:30 Temperature Temperature Source Pulse Rate 64 65 66 Pulse Rate from SpO2 Sensor 66 Respiratory Rate 20 22 21 Respiratory Effort / Characteristics Respiratory Depth Blood Pressure Blood Pressure Mean Pulse Oximetry 96 94 99 Oxygen Delivery Method Sepsis Recent Fever Within 48 Hours Sepsis New/Unexplained Change in Mental Status Sepsis Action Taken by Nursing 03/20/22 00:40 03/20/22 00:50 03/20/22 01:00 Temperature Temperature Source Pulse Rate 71 65 Pulse Rate from SpO2 Sensor 68 67 65 Respiratory Rate 20 23 22 Respiratory Effort / Characteristics Respiratory Depth Blood Pressure Blood Pressure Mean Pulse Oximetry 98 99 97 Oxygen Delivery Method Sepsis Recent Fever Within 48 Hours Sepsis New/Unexplained Change in Mental Status Sepsis Action Taken by Nursing 03/20/22 01:10 03/20/22 01:20 03/20/22 01:30 Temperature Temperature Source Pulse Rate 63 63 67 Pulse Rate from SpO2 Sensor 63 62 66 Respiratory Rate 21 19 20 Respiratory Effort / Characteristics Respiratory Depth Blood Pressure Blood Pressure Mean Pulse Oximetry 100 100 99 Oxygen Delivery Method Sepsis Recent Fever Within 48 Hours Sepsis New/Unexplained Change in Mental Status Sepsis Action Taken by Nursing 03/20/22 01:40 03/20/22 01:50 03/20/22 02:00 Temperature Temperature Source Pulse Rate 66 72 67 Pulse Rate from SpO2 Sensor 66 72 67 Respiratory Rate 21 22 23 Respiratory Effort / Characteristics Respiratory Depth Blood Pressure Blood Pressure Mean Pulse Oximetry 99 98 100 Oxygen Delivery Method Sepsis Recent Fever Within 48 Hours Sepsis New/Unexplained Change in Mental Status Sepsis Action Taken by Nursing 03/20/22 02:06 Temperature Temperature Source Pulse Rate Pulse Rate from SpO2 Sensor Respiratory Rate Respiratory Effort / Characteristics Non-Labored Respiratory Depth Normal Blood Pressure Blood Pressure Mean Pulse Oximetry Oxygen Delivery Method Sepsis Recent Fever Within 48 Hours Sepsis New/Unexplained Change in Mental Status Sepsis Action Taken by Nursing PHYSICAL EXAM: VITALS: Vitals are noted on the nurse's note and reviewed by myself. Vital signs stable. GENERAL: White female large scalp hematoma, in no acute distress, nondiaphoretic, well-developed well-nourished. SKIN: Right parietal hematoma and 5 cm laceration, the rest of the skin was without obvious lacerations or abrasions. Capillary reflex less than 2 seconds. HEAD: Normocephalic atraumatic. EARS: External auditory canals clear, tympanic membranes pearly alston without erythema or effusion bilaterally. No hemotympanums. No morrow sign. No mastoid tenderness. EYES: Pupils equal round and reactive to light and accommodation. Conjunctivae without injection, sclerae without icterus. Extraocular movements intact. NOSE: Patent, turbinates without inflammation or discharge. No sinus tenderness. No septal hematoma or bleeding. FACE: No facial bone tenderness. Full range of motion of the jaw without tenderness. MOUTH: Mucous membranes moist. Pharynx without erythema or exudate. Uvula midline. Airway patent. Tongue does not deviate. NECK: Supple without nuchal rigidity. Cervical spine is nontender. Full range of motion of the neck without tenderness. No JVD. HEART: Regular rate and rhythm LUNGS: Clear to auscultation bilaterally without wheezes, rales or rhonchi. No dullness to percussion. No retractions or accessory muscle use. No chest wall tenderness. ABDOMEN: Positive bowel sounds x 4. Normal tympanic percussion. Soft, nontender, without masses or organomegaly. No guarding or rebound tenderness. MUSCULOSKELETAL: No tenderness of the thoracic or lumbar spine. Right hip tender to palpation. Right shoulder tender to palpation. Full range of motion without tenderness to palpation in all other extremities. Peripheral pulses 2+. NEURO: Patient was alert and oriented to person but not to place and time. Patient started to slur her words and appeared agitated. She was emergently sent to CAT scan for rule out intracranial bleed. Patient was reassessed after CAT scan and was improved. Normal sensation to light and sharp touch. Negative Romberg and pronator drift. Cerebellar function intact. No focal neurological deficits. Course Administered Medications Discontinued Medications Fentanyl Citrate (Fentanyl Citrate 100 Mcg/2 Ml Vial) 50 mcg IV NOW STA Stop: 03/19/22 23:52 Last Admin: 03/20/22 00:14 Dose: 50 mcg Documented By: KAREN Sodium Chloride (Nss) 500 mls @ 999 mls/hr IV .Q31M MARION Stop: 03/19/22 22:15 Last Admin: 03/19/22 21:59 Dose: 999 mls/hr Documented By: KAREN Sodium Chloride (Nss) 500 mls @ 999 mls/hr IV .Q31M ONE Stop: 03/19/22 23:10 Last Admin: 03/20/22 00:21 Dose: 999 mls/hr Documented By: KAREN Medical Decision Making Medical Records Attestation: I reviewed the patient's medical records. Home Medications Current Medication List: was personally reviewed by me Laboratory Data Attestation: I reviewed the patient's lab results. Result diagrams: 03/19/22 21:35 03/19/22 21:35 Lab Results 03/19/22 03/19/22 03/19/22 Range/Units 21:35 21:35 21:35 WBC 6.75 (4.8-10.8) K/ul RBC 3.61 L (3.93-5.22) M/uL Hgb 12.4 (12.0-16.0) g/dl POC Hgb (12.0-16.0) g/dl Hct 36.1 (34.1-44.9) % POC Hct (37-47) % MCV 100.0 (80.0-100.0) fL MCH 34.3 H (25.0-34.0) pg MCHC 34.3 (32.0-36.0) g/dL RDW Std Deviation 43.8 (36.4-46.3) fL RDW Coeff of Diana 11.9 (11.5-14.5) % Plt Count 231 (130-400) K/uL MPV 9.9 (9.4-12.3) fL Immature Gran % (Auto) 0.6 % Neut % (Auto) 50.8 % Lymph % (Auto) 36.9 % [place] % (Auto) 9.5 % Eos % (Auto) 1.2 % Baso % (Auto) 1.0 % Neut # (Auto) 3.43 (1.4-6.5) K/uL Lymph # (Auto) 2.49 (1.2-3.4) K/uL [place] # (Auto) 0.64 (0.24-0.82) K/uL Eos # (Auto) 0.08 (0-0.50) K/uL Baso # (Auto) 0.07 (0-0.2) K/uL Immature Gran # (Auto) 0.04 H (0.00-0.02) K/uL POC Sodium (135-144) mmol/L Sodium 132 L (136-145) mmol/L POC Potassium (3.3-5.0) mmol/L Potassium 4.1 (3.5-5.1) mmol/L POC Chloride (101-112) mmol/L Chloride 93 L (98-107) mmol/L Carbon Dioxide 23 (21-32) mmol/L POC Total CO2 (24-31) mmol/L Anion Gap 16 H (3-11) POC Anion Gap (16-25) mmol/L POC BUN (7-18) mg/dl BUN 29 H (6-23) mg/dl Creatinine 1.52 H (0.6-1.2) mg/dl POC Creatinine (0.6-1.3) mg/dl Est Cr Clr Drug Dosing 23.1 ml/min Est GFR ( Amer) 35.1 ml/min Est GFR (Non-Af Amer) 30.3 ml/min BUN/Creatinine Ratio 19.1 (10-20) Glucose 75 (70-99(Fasting)) mg/dl POC Glucose (other) (70-99) mg/dl Calcium 9.7 (8.5-10.1) mg/dl POC Ioniz Calcium Jon (1.12-1.32) mmol/l Magnesium 2.0 (1.7-2.4) mg/dl Total Bilirubin 0.7 (0.2-1.0) mg/dl AST 18 (13-39) U/L ALT 13 (7-52) U/L Alkaline Phosphatase 52 (34-104) U/L Total Creatine Kinase 41 (26-192) U/L Troponin I High Sens 5.7 (0-14) pg/ml Total Protein 6.7 (6.0-8.3) gm/dl Albumin 4.0 (3.4-5.0) gm/dl Globulin 2.7 (2.5-4.0) gm/dl Albumin/Globulin Ratio 1.5 (0.9-2) TSH 4.140 (0.300-4.500) uIu/ml Urine Color Urine Appearance (Clear) Urine pH (4.5-7.5) Ur Specific [place] (1.000-1.030) Urine Protein (Negative) Urine Glucose (UA) (Negative) Urine Ketones (Negative) Urine Blood (Negative) Urine Nitrite (Negative) Urine Bilirubin (Negative) Urine Urobilinogen (Negative) Ur Leukocyte Esterase (Negative) Urine WBC (Auto) (0-5) /hpf Urine RBC (Auto) (0-4) /hpf U Hyaline Cast (Auto) (0-5) /lpf U Epithel Cells (Auto) (0-5) /lpf Urine Bacteria (Auto) (Negative) Ethyl Alcohol mg/dL (<10.0) mg/dl SARS-CoV-2, RNA, NAAT (NEGATIVE) 03/19/22 03/20/22 03/20/22 Range/Units 21:37 00:20 01:54 WBC (4.8-10.8) K/ul RBC (3.93-5.22) M/uL Hgb (12.0-16.0) g/dl POC Hgb 12.9 (12.0-16.0) g/dl Hct (34.1-44.9) % POC Hct 38 (37-47) % MCV (80.0-100.0) fL MCH (25.0-34.0) pg MCHC (32.0-36.0) g/dL RDW Std Deviation (36.4-46.3) fL RDW Coeff of Diana (11.5-14.5) % Plt Count (130-400) K/uL MPV (9.4-12.3) fL Immature Gran % (Auto) % Neut % (Auto) % Lymph % (Auto) % [place] % (Auto) % Eos % (Auto) % Baso % (Auto) % Neut # (Auto) (1.4-6.5) K/uL Lymph # (Auto) (1.2-3.4) K/uL [place] # (Auto) (0.24-0.82) K/uL Eos # (Auto) (0-0.50) K/uL Baso # (Auto) (0-0.2) K/uL Immature Gran # (Auto) (0.00-0.02) K/uL POC Sodium 132 L (135-144) mmol/L Sodium (136-145) mmol/L POC Potassium 3.9 (3.3-5.0) mmol/L Potassium (3.5-5.1) mmol/L POC Chloride 95 L (101-112) mmol/L Chloride (98-107) mmol/L Carbon Dioxide (21-32) mmol/L POC Total CO2 24 (24-31) mmol/L Anion Gap (3-11) POC Anion Gap 17.0 (16-25) mmol/L POC BUN 29 H (7-18) mg/dl BUN (6-23) mg/dl Creatinine (0.6-1.2) mg/dl POC Creatinine 2.0 H (0.6-1.3) mg/dl Est Cr Clr Drug Dosing ml/min Est GFR ( Amer) ml/min Est GFR (Non-Af Amer) ml/min BUN/Creatinine Ratio (10-20) Glucose (70-99(Fasting)) mg/dl POC Glucose (other) 88 (70-99) mg/dl Calcium (8.5-10.1) mg/dl POC Ioniz Calcium Jon 1.09 L (1.12-1.32) mmol/l Magnesium (1.7-2.4) mg/dl Total Bilirubin (0.2-1.0) mg/dl AST (13-39) U/L ALT (7-52) U/L Alkaline Phosphatase (34-104) U/L Total Creatine Kinase (26-192) U/L Troponin I High Sens (0-14) pg/ml Total Protein (6.0-8.3) gm/dl Albumin (3.4-5.0) gm/dl Globulin (2.5-4.0) gm/dl Albumin/Globulin Ratio (0.9-2) TSH (0.300-4.500) uIu/ml Urine Color Yellow Urine Appearance Cloudy A (Clear) Urine pH 6.5 (4.5-7.5) Ur Specific [place] 1.014 (1.000-1.030) Urine Protein Negative (Negative) Urine Glucose (UA) Negative (Negative) Urine Ketones Trace H (Negative) Urine Blood Negative (Negative) Urine Nitrite Positive A (Negative) Urine Bilirubin Negative (Negative) Urine Urobilinogen Negative (Negative) Ur Leukocyte Esterase 2+ H (Negative) Urine WBC (Auto) >30 H (0-5) /hpf Urine RBC (Auto) 0-4 (0-4) /hpf U Hyaline Cast (Auto) 1-5 (0-5) /lpf U Epithel Cells (Auto) >30 H (0-5) /lpf Urine Bacteria (Auto) 4+ H (Negative) Ethyl Alcohol mg/dL (<10.0) mg/dl SARS-CoV-2, RNA, NAAT NEGATIVE (NEGATIVE) 03/20/22 Range/Units 02:15 WBC (4.8-10.8) K/ul RBC (3.93-5.22) M/uL Hgb (12.0-16.0) g/dl POC Hgb (12.0-16.0) g/dl Hct (34.1-44.9) % POC Hct (37-47) % MCV (80.0-100.0) fL MCH (25.0-34.0) pg MCHC (32.0-36.0) g/dL RDW Std Deviation (36.4-46.3) fL RDW Coeff of Diana (11.5-14.5) % Plt Count (130-400) K/uL MPV (9.4-12.3) fL Immature Gran % (Auto) % Neut % (Auto) % Lymph % (Auto) % [place] % (Auto) % Eos % (Auto) % Baso % (Auto) % Neut # (Auto) (1.4-6.5) K/uL Lymph # (Auto) (1.2-3.4) K/uL [place] # (Auto) (0.24-0.82) K/uL Eos # (Auto) (0-0.50) K/uL Baso # (Auto) (0-0.2) K/uL Immature Gran # (Auto) (0.00-0.02) K/uL POC Sodium (135-144) mmol/L Sodium (136-145) mmol/L POC Potassium (3.3-5.0) mmol/L Potassium (3.5-5.1) mmol/L POC Chloride (101-112) mmol/L Chloride (98-107) mmol/L Carbon Dioxide (21-32) mmol/L POC Total CO2 (24-31) mmol/L Anion Gap (3-11) POC Anion Gap (16-25) mmol/L POC BUN (7-18) mg/dl BUN (6-23) mg/dl Creatinine (0.6-1.2) mg/dl POC Creatinine (0.6-1.3) mg/dl Est Cr Clr Drug Dosing ml/min Est GFR ( Amer) ml/min Est GFR (Non-Af Amer) ml/min BUN/Creatinine Ratio (10-20) Glucose (70-99(Fasting)) mg/dl POC Glucose (other) (70-99) mg/dl Calcium (8.5-10.1) mg/dl POC Ioniz Calcium Jon (1.12-1.32) mmol/l Magnesium (1.7-2.4) mg/dl Total Bilirubin (0.2-1.0) mg/dl AST (13-39) U/L ALT (7-52) U/L Alkaline Phosphatase (34-104) U/L Total Creatine Kinase (26-192) U/L Troponin I High Sens (0-14) pg/ml Total Protein (6.0-8.3) gm/dl Albumin (3.4-5.0) gm/dl Globulin (2.5-4.0) gm/dl Albumin/Globulin Ratio (0.9-2) TSH (0.300-4.500) uIu/ml Urine Color Urine Appearance (Clear) Urine pH (4.5-7.5) Ur Specific [place] (1.000-1.030) Urine Protein (Negative) Urine Glucose (UA) (Negative) Urine Ketones (Negative) Urine Blood (Negative) Urine Nitrite (Negative) Urine Bilirubin (Negative) Urine Urobilinogen (Negative) Ur Leukocyte Esterase (Negative) Urine WBC (Auto) (0-5) /hpf Urine RBC (Auto) (0-4) /hpf U Hyaline Cast (Auto) (0-5) /lpf U Epithel Cells (Auto) (0-5) /lpf Urine Bacteria (Auto) (Negative) Ethyl Alcohol mg/dL 101.4 H (<10.0) mg/dl SARS-CoV-2, RNA, NAAT (NEGATIVE) Imaging Data Attestation: I personally reviewed and interpreted this imaging study as follows: Radiologist's Impression: Cervical Spine CT 03/19/22 21:32 CT cervical spine wo con CLINICAL HISTORY: ams TECHNIQUE: Multidetector row helical CT of the cervical spine was performed without administration of intravenous contrast. Coronal and sagittal reformations were obtained. Automated dose lowering techniques and/or adjustment according to patient size were utilized for this exam. Comparison: Comparison is made to CT cervical spine 11/30/2020 FINDINGS: No acute fractures or subluxations are identified. Degenerative changes are seen in the visualized spine. The alignment is normal. Biapical scarring is seen in the lungs. Incidentally noted is prominent cerumen in the bilateral external auditory canals. IMPRESSION: Degenerative changes without evidence of acute bony injury. ACT 112: Negative or not required by law. Electronically signed by: Baltazar Gastelum M.D. 03/19/2022 10:[address] 03/19/22 21:32 CT facial bones wo con CLINICAL HISTORY: ams TECHNIQUE: Multidetector row helical CT of the maxillofacial bones was performed without administration of intravenous contrast, and processed with bone and soft tissue algorithms. Coronal and sagittal reformations were obtained. Automated dose lowering techniques and/or adjustment according to patient size were utilized for this exam. Comparison: None available at the time of this dictation. FINDINGS: Nasal bones are normal. The mandible is intact. The temporomandibular joints are anatomically aligned. Pterygoid plates are intact. Zygomatic arches are intact. The globes are normal and symmetric, without proptosis, obvious disruption or lens dislocation. There is no orbital radiopaque foreign body. The orbital frost are intact. The retrobulbar fat is without evidence of disruption. Extraocular muscles are normal and symmetric. Optic nerve sheath complexes are normal in course and caliber. Sphenoid sinus opacification is seen. IMPRESSION: 1. No acute facial fracture. 2. Sphenoid sinus disease. 3. Cerumen in the bilateral external auditory canals. ACT 112: Negative or not required by law. Electronically signed by: Baltazar Gastelum M.D. 03/19/2022 10:[address] 03/19/22 21:32 CT head/brain wo con CLINICAL HISTORY: ams Technique: Contiguous axial CT images of the head were acquired from the base of the skull to the vertex without intravenous contrast administration. Images were viewed in brain, subdural and bone windows. Automated dose lowering techniques and/or adjustment according to patient size were utilized for this exam. Comparison: Comparison is made to CT head 11/30/2020 Findings: Areas of decreased attenuation are present in the periventricular and kelley bcortical white matter bilaterally consistent with small vessel ischemic disease. Generalized cerebral atrophy with commensurate enlargement of the ventricles, sulci, and cisterns is also present. There is no acute intracranial hemorrhage or evidence of acute territorial infarction. No shift of the midline structures, mass effect, or extra-axial abnormalities are shown. Atherosclerotic calcifications are present in the intracranial segments of the internal carotid arteries. Focal encephalomalacia in the left MCA territory is unchanged. Imaged portions of the paranasal sinuses and mastoid air cells are clear. The orbits appear normal. There are no acute fractures of the calvaria. Soft tissue swelling is seen in the occiput. Impression: No acute intracranial hemorrhage or skull fractures. Scalp swelling is seen in the occiput. ACT 112: Negative or not required by law. Electronically signed by: Baltazar Gastelum M.D. 03/19/2022 10:06 PM Chest X-Ray 03/19/22 21:33 XR chest 1V portable CLINICAL HISTORY: weakness TECHNIQUE: Single frontal radiograph of the chest was obtained. Comparison: Comparison is made to chest radiograph 11/30/[address] thorax 09/13/2015 FINDINGS: No lines and tubes are seen. Calcified aortic knob is seen. The lungs are clear. No evidence of pleural effusion or pneumothorax. Degenerative changes are seen in the right greater than left shoulder joints. IMPRESSION: No acute chest disease. ACT 112: Negative or not required by law. Electronically signed by: aBltazar Gastelum M.D. 03/19/2022 10:00 PM MDM Narrative Prior records/ancillary studies reviewed and summarized above. Nursing notes reviewed. Additional history obtained from nursing. The patient's history was concerning for fall with head injury hip injury and altered mental status. Differential diagnosis: Etiologies such as metabolic, infection, hypoglycemia, electrolyte abnormalities, cardiac sources, intracerebral event, toxicologic, neurologic, as well as others were entertained. Physical examination: As above. ER treatment provided: IV Lock, Rocephin for UTI Normal saline hydration An order was placed for continuous cardiac monitoring. The monitor shows a rate of 60-100 with a sinus rhythm. Staple Repair Location: Scalp Total length: 5 cm Complexity: Simple Verbal consent was obtained after the risks and benefits were explained, including but not limited to bleeding, scarring, infection, pain, and bone/nerve damage. At this time, the risks of the procedure are less than the risks of NOT performing the procedure. A time out was taken and the correct patient and site identified. The scalp was prepped with betadine. Patient declined anesthetic as she was already given fentanyl. Copious irrigation was performed using saline. The skin was re-prepped with betadine, the hair cleared from the wound, and a sterile field set. The wound was explored for foreign bodies and none found. Debridement was not performed. The wound edges were approximated using 8 surgical madelyn in the standard fashion. Hemostasis and excellent approximation was achieved. Antibacterial ointment and a sterile dressing applied. Detailed wound care instructions and signs and symptoms of infection reviewed with the pt. No complications and the patient tolerated the procedure well. I performed the procedure. On reassessment the patients mental status improved. Diagnostics interpretation by me: ECG: Ordered for fall EKG: Normal sinus, normal intervals, no acute ST-T wave changes. Impression normal sinus interpreted by myself I think arrhythmia is unlikely. EKG shows normal sinus rhythm with no interval a bnormalities such as QT prolongation or WPW. There are no findings to suggest Brugada syndrome. Cardiac monitoring in the emergency department reveals no tachycardic or bradycardic dysrhythmia. Hypertrophic cardiomyopathy was considered but there are no clear historical elements pointing toward this. EKG is not suggestive. The QRS voltage is not extremely large and there are no suggestive Q waves. The labs revealed stable H&H, creatinine 1.5 Imaging studies: As above shoulder x-ray negative for fracture dislocation or effusion per my interpretation Hip x-ray concerning for femoral neck fracture per my interpretation Given the above diagnostic work-up and treatment, this episode appears to be consistent with head injury hip fracture with fall and UTI. Further treatment will be required. Patient was reassessed multiple times. She did improve. Nelson was placed. Medicine was consulted. She will be admitted. Consultation: A consultation was placed with the hospitalist. The case was discussed and diagnostics were reviewed. The patient was evaluated in the ER for further treatment. Impression & Plan Fracture of femoral neck, right, closed, Fall, Laceration of scalp, Scalp hematoma, Acute UTI Discharge Plan Visit Data Chief Complaint: Fall Stated Complaint: FALL ED Provider: Arturo Anderson ED Midlevel Provider: Yissel Kennedy Discharge Problem: Fracture of femoral neck, right, closed, Fall, Laceration of scalp, Scalp hematoma, Acute UTI Patient Disposition: Admitted As Inpatient Condition: Fair Forms Stand Alone Forms: [facility] [place] [employer] Prescriptions Prescriptions: No Action metoprolol succinate 50 mg tablet extended release 24 hr 50 mg PO DAILY Qty: 90 3RF solifenacin [Vesicare] 5 mg tablet 5 mg PO DAILY Qty: 30 5RF verapamil 120 mg tablet extended release 120 mg PO DAILY Qty: 90 3RF Xarelto 15 mg tablet 15 mg PO DAILY Qty: 30 2RF Rx Instructions: must administer with evening meal coenzyme Q10 [CoQ-10] 100 mg Capsule 100 mg PO QAM furosemide 20 mg tablet 20 mg PO 3XWK Rx Instructions: one tablet every Sun, Sun and Sunday rosuvastatin 5 mg tablet 5 mg PO 3XWK Rx Instructions: TAKE 1 TABLET BY MOUTH ON MONDAYS, WEDNESDAYS, AND FRIDAYS Referrals Referrals: Lisandra Barnhart MD [Primary Care Provider] -
--- NOTE | 2022-03-20 01:38 | Emergency Department Note ---
ED Visit Note I did evaluate and examine this patient myself. I did guide management for the patient. I agree with the PA's assessment as discussed. Please see the PAs dictation for further details. I did independently review the x-rays, CT, Twelve-lead EKG and blood work. The patient fell today. She had a head injury and is on blood thinners. She has a scalp hematoma but no evidence of intracranial hemorrhage. No fractures to the face or cervical spine. She does have a right hip fracture. She was admitted for further care and evaluation. .
[2022-03-20 02:20] LABS: Appearance Urine Cloudy (Clear); Bacteria Urine Automated 4+ (Negative); Bilirubin Urine Negative (Negative); Blood Urine Negative (Negative); Color Urine Yellow; Epithelial Cell Urine Auto >30 /lpf (0-5); Glucose Urine UA Negative (Negative); Ketones Urine Trace (Negative); Leukocyte Esterase Urine 2+ (Negative); Nitrite Urine Positive (Negative); Protein Urine Negative (Negative); RBC Urine Automated 0-4 /hpf (0-4); Specific Gravity Urine 1.014 (1.000-1.030); Urobilinogen Urine Negative (Negative); WBC Urine Automated >30 /hpf (0-5); pH Urine 6.5 (4.5-7.5)
[2022-03-20] MEDS ORDERED: cefTRIAXone SODIUM 2,000 MG/70 ML BAG IV STA (03:50)
[2022-03-20] MEDS ORDERED: MoRPHine SULFATE 2 MG/ML CARP IV PRN (04:41)
[2022-03-20] MEDS ORDERED: ACETAMINOPHEN 1000 MG/100 ML IV IV PRN (04:41)
[2022-03-20] MEDS ORDERED: SODIUM CHLORIDE 0.9% 1000ML 1,000 ML IV SCH (04:41)
[2022-03-20] MEDS ORDERED: ONDANSETRON INJ 2 MG/ML 2 ML VIAL IV PRN (04:41)
[2022-03-20 05:57] LABS: Basophils % (auto) 0.5 %; Eosinophils % (auto) 0.1 %; Hematocrit (blood only) 34.4 % (34.1-44.9); Hemoglobin 11.7 g/dl (12.0-16.0); Immature Granulocytes % (auto) 0.6 %; Lymphocytes # (auto) 0.48 K/uL (1.2-3.4); Lymphocytes % (auto) 5.4 %; Mean Corpuscular Hemoglobin 34.2 pg (25.0-34.0); Mean Corpuscular Volume 100.6 fL (80.0-100.0); Mean Platelet Volume 9.6 fL (9.4-12.3); Monocytes # (auto) 0.69 K/uL (0.24-0.82); Monocytes % (auto) 7.8 %; Neutrophils # (auto) 7.57 K/uL (1.4-6.5); Neutrophils % (auto) 85.6 %; Platelet Count 184 K/uL (130-400); RDW Coefficient of Variation 11.9 % (11.5-14.5); RDW Standard Deviation 43.6 fL (36.4-46.3); Red Blood Count 3.42 M/uL (3.93-5.22); White Blood Count 8.84 K/ul (4.8-10.8)
[2022-03-20 05:58] LABS: Basophils # (auto) 0.04 K/uL (0-0.2); Eosinophils # (auto) 0.01 K/uL (0-0.50); Immature Granulocytes # (auto) 0.05 K/uL (0.00-0.02)
--- NOTE | 2022-03-20 05:59 | Billing Data ---
Date of Service March 20, 2022 Coding Level of Care Code 55743 Initial Inpt Care Lvl 3
[2022-03-20 06:25] LABS: BUN Creatinine Ratio 22.2 (10-20); Calcium 8.5 mg/dl (8.5-10.1); Est GFR (African American) 48.2 ml/min; Est GFR (Non-African American) 41.6 ml/min; Potassium 3.7 mmol/L (3.5-5.1)
[2022-03-20 06:53] LABS: Amphetamines+Metham, Urine Neg (Neg); Barbiturates, Urine Neg (Neg); Benzodiazepine, Urine Neg (Neg); Cocaine, Urine Neg (Neg); MDMA (Ecstacy), Urine Neg (Neg); Methadone, Urine Neg (Neg); Opiate, Urine Neg (Neg); Phencyclidine, Urine Neg (Neg)
--- NOTE | 2022-03-20 07:17 | XRay Report ---
XR hip RT 2V w pelvis CLINICAL HISTORY: fall, pain COMPARISON: Pelvis radiograph November 30, 2020. FINDINGS: Note is made of an acute displaced right femoral neck fracture. No additional acute fractu res are identified within the pelvis or hips. Sacroiliac joints and symphysis pubis are intact. Surgi silviano clips and staple lines are incidentally noted. IMPRESSION: Acute displaced right femoral neck fracture. ACT 112: Negative or not required by law. Electronically signed by: Bryan Villalta M.D. 03/20/2022 7:16 AM
--- NOTE | 2022-03-20 07:18 | XRay Report ---
XR shoulder RT min 2V routine CLINICAL HISTORY: fall, pain COMPARISON: Right humerus radiographs December 02, 2019. FINDINGS: No acute fracture within the right shoulder is identified. There is elevation of the right humeral head with narrowing of the subacromial space. Moderate to severe degenerative changes of the right shoulder are present. IMPRESSION: 1. No acute fracture or dislocation within the right shoulder. 2. 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 ACT 112: Negative or not required by law. Electronically signed by: Bryan Villalta M.D. 03/20/2022 7:17 AM
--- NOTE | 2022-03-20 07:33 | Electrocardiogram Report ---
Test Reason : Blood Pressure : / mmHG Vent. Rate : 066 BPM Atrial Rate : 066 BPM P-R Int : 186 ms QRS Dur : 088 ms QT Int : 310 ms P-R-T Axes : 082 012 094 degrees QTc Int : 324 ms Normal sinus rhythm Low voltage QRS Nonspecific T wave abnormality Abnormal ECG When compared with ECG of 30-NOV-2020 03:21, Sinus rhythm has replaced Atrial fibrillation Confirmed by Neil Cummings ([id number]) on 03/20/2022 7:33:21 AM Referred By: REFERRED SELF Confirmed By:Anthony Cummings
[2022-03-20] MEDS ORDERED: NON-FORMULARY MEDICATION (Coenzyme Q10 [Coq-10] 100 mg Capsule) PO SCH (09:00)
--- NOTE | 2022-03-20 09:35 | Consultation Report ---
DATE OF CONSULTATION: 03/20/2022. CHIEF COMPLAINT: Right hip pain. HISTORY OF PRESENT ILLNESS: The patient is an 86-year-old female with a past medical history significant for paroxysmal atrial fibrillation on 15 mg of Xarelto daily, who fell. She does not recall the exact time of the fall. However, she was brought to the emergency room by ambulance arriving around midnight. She was worked up in the emergency room with x-rays that showed a displaced right hip femoral neck fracture. She was a little bit confused, so a CT scan of her head was done that showed no acute intracranial hemorrhage. She did have a scalp laceration that was noted. Urine toxicology screen was positive for alcohol. CT of the cervical spine is negative for fracture. She denies any numbness or tingling. Denies fevers, chills, chest pain, shortness of breath, nausea or vomiting. PAST MEDICAL HISTORY: 1. Paroxysmal atrial fibrillation. 2. Chronic kidney disease. 3. Long-term anticoagulation, on Xarelto. 4. History of GI bleed. 5. History of abdominal abscess. 6. Acute alcohol intoxication. PAST SURGICAL HISTORY, MEDICATIONS AND ALLERGIES: Reviewed in the chart. PHYSICAL EXAMINATION: GENERAL: Pleasant female, resting supine in hospital bed, in no acute distress. She is oriented to her name, but not to her location or the year. EXTREMITIES: Lower extremity exam reveals no skin lesions. Her leg is shortened and externally rotated. She has palpable dorsalis pedis pulse. Sensory intact to light touch, dorsal and plantar aspect of the foot. Range of motion and strength testing was deferred secondary to the fracture. RESULTS REVIEWED: Urine tox labs on admission showed the patient to have elevated alcohol level consistent with alcohol intoxication. Her COVID test was negative. Her hemoglobin and hematocrit were 12.4 and a 36.1 on admission, respectively. Platelet count normal. Her creatinine was 1.52 on admission, 1.17 this morning. X-rays that were done in the emergency room are reviewed. In her right shoulder, she has rotator cuff tear arthropathy. No acute fracture seen. In her hip and pelvis x-ray she has displaced right femoral neck fracture. IMPRESSION: An 86-year-old female with acute alcohol intoxication, on Xarelto, with a displaced right hip femoral neck fracture. She has chronic kidney disease, which results in a slow elimination of her Xarelto. PLAN: I discussed the nature of the injury with the patient. In order to regain the ability to walk the patient will require surgery in form of a cemented hemiarthroplasty of the right hip. At the present time, I am not sure that she is consentable because of her alcohol intoxication. I did speak with the pharmacist about her Xarelto. Because of her creatinine clearance the earliest time it would be safe to do her surgery would be Sunday, 3 days after her last dose, which was yesterday morning. I called the operating room and I have added her on for Sunday. She will be admitted to the Internal Medicine service. We will follow her while she is an inpatient and plan on getting her informed consent tomorrow, at which point she should be consentable. She needs to remain bed rest with precautions for ulcers. Please do not order any additional DVT prophylaxis and continue to hold her Xarelto. May have regular diet with protein shakes for now, but should be NPO after midnight on Sunday. Job ID: [id number] [facility]ITAL[facility]
[2022-03-20] MEDS: ROSUVASTATIN CALCIUM 5 MG TAB PO SCH (09:53)
[2022-03-20] MEDS: METOPROLOL SUCC 50MG EXT REL TAB PO SCH (09:53)
[2022-03-20] MEDS: VERAPAMIL HCL 120 MG TABCR PO SCH (09:53)
[2022-03-20] MEDS: FUROSEMIDE 20 MG TAB PO SCH (09:53)
--- NOTE | 2022-03-20 13:12 | Hospitalist Progress Note ---
Date of Service March 20, 2022 Assessment & Plan (1) Closed right hip fracture: Plan: Josiane Shannon is an 86-year-old female with past medical history of hypertension, CKD stage III, paroxysmal A. fib on Xarelto, hyperlipidemia, prior falls due to alcohol intoxication, iron deficiency anemia, urinary incontinence who presents due to a fall. Right hip displaced femoral neck fracture Unclear cause for fall as patient does not remember and it was unwitnessed of note, patient has history of prior fall due to alcohol intoxication CT head clear, no C-spine fracture Ortho consulted Patient with alcohol intoxication, unable to complete consent at time of assessment Scheduled for cemented hemiarthroplasty on Sunday No additional DVT prophylaxis Bedrest with ulcer precaution Regular diet with boost, n.p.o. 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 fib Continue metoprolol and verapamil Hold Xarelto Hyperlipidemia Continue rosuvastatin Overactive bladder Continue Solifenacin DVT prophylaxis: Held pending surgery Diet: Giller with boost, n.p.o. at midnight 03/21 Dispo: Admit to [facility] CODE STATUS: Full (2) Alcohol use: (3) Hypertension: (4) Chronic kidney disease, stage 3: (5) Chronic anticoagulation: (6) Paroxysmal atrial fibrillation: (7) Hyperlipidemia: (8) Fall: (9) SIADH (syndrome of inappropriate ADH production): Admission and Anticipated Discharge Date Admission Date: March 20, 2022 Subjective Seen at bedside this morning with the company of her family. Patient reports that she drinks 2 glasses of wine every day. She reports her right hip aches, but is not having shooting pain. Sensation is intact in her feet. Aware that she is pending orthopedic repair of her hip on Sunday. She has not had an alcohol free day in "a very long time ". Denies any history of withdrawal tremors, shakes, or seizures. Denies headache, vision change today. No chest pain, chest pressure, shortness of breath. Review of Systems Review of Systems: All systems reviewed & are unremarkable except as noted in Subjective Physical Exam Physical Exam: General: Somewhat somnolent and tangential in morning, at afternoon reassessment patient is alert and oriented. Does not remember falling. HEENT: Posterior scalp with large hematoma, no crepitus. Right parietal hematoma and laceration Pulm: CTAB A&P. -wheezes, -rales, -rhonchi. Symmetrical chest rise. No increase in work of breathing. No respiratory distress. Cardiac: RRR, -mrg. Radial pulses intact and symmetrical. Abdominal: Nontender, nondistended, soft. BS present. Extremities: Warm and dry. Tender to palpation at the right hip. Right leg is externally rotated. PT pulse intact bilaterally, sensation intact to soft touch in the feet bilaterally Results & Data Results & Data ([facility]) Vital Signs (Past 12 Hours) Vital Signs Pulse Pulse Resp BP Pulse Ox O2 Del Method O2 Flow Rate 03/20/22 11:55 Room Air 03/20/22 11:43 68 19 157/71 H 99 Room Air 03/20/22 09:39 76 20 155/73 H 100 Nasal Cannula 2 03/20/22 04:41 94 Nasal Cannula 03/20/22 06:34 Nasal Cannula 2 03/20/22 02:00 67 23 100 03/20/22 01:50 72 22 98 03/20/22 01:40 66 21 99 03/20/22 01:30 67 20 99 03/20/22 01:20 63 19 100 03/20/22 01:10 63 21 100 PG Care Time/CCT Total # of Minutes Spent Total Time Spent with Patient: Total time spent is greater than 50% in coordination of care (as documented) at patient's floor/unit and/or counseling patient: Coding Level of Care Code 12814 Subseq Hosp Care Lvl 2 Diagnoses Closed right hip fracture S72.001A Alcohol use Z72.89 Hypertension I10 Hypertension type: essential hypertension Chronic kidney disease, stage 3 N18.30 Chronic kidney disease stage 3 subtype: unspecified whether 3a or 3b Chronic anticoagulation Z79.01 Paroxysmal atrial fibrillation I48.0 Hyperlipidemia E78.5 Fall W19.XXXA SIADH (syndrome of inappropriate ADH production) E22.2 (1) Chronic kidney disease, stage 3 Chronic kidney disease stage 3 subtype: unspecified whether 3a or 3b Qualified Code(s): N18.30 - Chronic kidney disease, stage 3 unspecified (2) Hypertension Hypertension type: essential hypertension Qualified Code(s): I10 - Essential (primary) hypertension
[2022-03-20] MEDS ORDERED: LORazepam 1 MG TAB PO PRN (15:01)
[2022-03-20] MEDS: THIAMINE HCL 100 MG TAB PO SCH (16:05)
[2022-03-20] MEDS: FOLIC ACID 1 MG TAB PO SCH (16:05)
[2022-03-20 16:29] LABS: Folate (Folic Acid) 7.41 ng/ml (>5.38)
[2022-03-21 07:47] LABS: Basophils # (auto) 0.04 K/uL (0-0.2); Basophils % (auto) 0.6 %; Eosinophils # (auto) 0.04 K/uL (0-0.50); Eosinophils % (auto) 0.6 %; Hematocrit (blood only) 34.2 % (34.1-44.9); Hemoglobin 11.6 g/dl (12.0-16.0); Immature Granulocytes # (auto) 0.02 K/uL (0.00-0.02); Immature Granulocytes % (auto) 0.3 %; Lymphocytes # (auto) 0.61 K/uL (1.2-3.4); Lymphocytes % (auto) 9.9 %; Mean Corpuscular Hemoglobin 34.2 pg (25.0-34.0); Mean Corpuscular Hgb Conc 33.9 g/dL (32.0-36.0); Mean Corpuscular Volume 100.9 fL (80.0-100.0); Mean Platelet Volume 9.6 fL (9.4-12.3); Monocytes # (auto) 0.62 K/uL (0.24-0.82); Neutrophils # (auto) 4.85 K/uL (1.4-6.5); Neutrophils % (auto) 78.6 %; Platelet Count 165 K/uL (130-400); RDW Coefficient of Variation 12.2 % (11.5-14.5); RDW Standard Deviation 45.1 fL (36.4-46.3); Red Blood Count 3.39 M/uL (3.93-5.22); White Blood Count 6.18 K/ul (4.8-10.8)
[2022-03-21 08:18] LABS: BUN Creatinine Ratio 18.2 (10-20); Calcium 8.8 mg/dl (8.5-10.1); Creatinine Clr Calc Pharmacy 29.2 ml/min; Est GFR (African American) 51.9 ml/min; Est GFR (Non-African American) 44.8 ml/min; Potassium 3.5 mmol/L (3.5-5.1)
[2022-03-21] MEDS: METOPROLOL SUCC 50MG EXT REL TAB PO SCH (09:09)
[2022-03-21] MEDS: FOLIC ACID 1 MG TAB PO SCH (09:09)
[2022-03-21] MEDS: VERAPAMIL HCL 120 MG TABCR PO SCH (09:09)
[2022-03-21] MEDS: THIAMINE HCL 100 MG TAB PO SCH (09:09)
[2022-03-21] MEDS: cefTRIAXone SODIUM 2,000 MG in DEXTROSE 5% 50 ML IV SCH (09:15)
[2022-03-21] MEDS: CYANOCOBALAMIN 1000 MCG/ML VIAL IM SCH (09:15)
--- NOTE | 2022-03-21 10:43 | Hospitalist Progress Note ---
Date of Service March 21, 2022 Assessment & Plan (1) Closed right hip fracture: Plan: Josiane Shannon is an 86-year-old female with past medical history of hypertension, CKD stage III, paroxysmal A. fib on Xarelto, hyperlipidemia, prior falls due to alcohol intoxication, iron deficiency anemia, urinary incontinence who presents due to a fall. Right hip displaced femoral neck fracture Patient does not remember and it was unwitnessed of note, patient has history of prior fall due to alcohol intoxication, alcohol levels elevated on admission CT head clear, no C-spine fracture Ortho consulted. Anticipate operative repair 03/22 Patient with alcohol intoxication, unable to complete consent at time of assessment. Doing much better today. No additional DVT prophylaxis Bedrest with ulcer precaution Regular diet with boost, n.p.o. at midnight Sunday Hold Xarelto Chronic alcohol use Patient drinks 2 glasses of wine every day, reports she has not had an alcohol free day in "a long time " Denies history of seizures, withdrawal, tremors but has not had an alcohol free day in some time If tremors, diaphoresis, or shakes develop switch to active protocol, will follow at risk protocol at this time B12 profoundly low, IM given x1 and oral supplementation started 03/22. 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 fib Continue metoprolol and verapamil Hold Xarelto Hyperlipidemia Continue rosuvastatin Overactive bladder Continue Solifenacin DVT prophylaxis: Held pending surgery Diet: Giller with boost, n.p.o. at midnight 03/21 Dispo: Admit to [facility] CODE STATUS: Full (2) Alcohol use: (3) Hypertension: (4) Chronic kidney disease, stage 3: (5) Chronic anticoagulation: (6) Paroxysmal atrial fibrillation: (7) Hyperlipidemia: (8) Fall: (9) SIADH (syndrome of inappropriate ADH production): Admission and Anticipated Discharge Date Admission Date: March 20, 2022 Subjective Seen at bedside this morning. Continues to have pain in her right hip unchanged from prior. Otherwise feels well this morning. Denies tremors, lightheadedness, dizziness, sweats. Does not endorse any withdrawal symptoms. No chest pain, chest pressure, lightheadedness, dizziness, shortness of breath. Is awaiting surgery anticipated tomorrow no other questions at bedside. No headache Review of Systems Review of Systems: All systems reviewed & are unremarkable except as noted in Subjective Physical Exam Physical Exam: General: Somewhat somnolent and tangential in morning, at afternoon reassessment patient is alert and oriented. Does not remember falling. HEENT: Posterior scalp with large hematoma, no crepitus. Right parietal hematoma and laceration Pulm: CTAB A&P. -wheezes, -rales, -rhonchi. Symmetrical chest rise. No increase in work of breathing. No respiratory distress. Cardiac: RRR, -mrg. Radial pulses intact and symmetrical. Abdominal: Nontender, nondistended, soft. BS present. Extremities: Warm and dry. Tender to palpation at the right hip. Right leg is externally rotated. PT pulse intact bilaterally, sensation intact to soft touch in the feet bilaterally Results & Data Results & Data ([facility]) Vital Signs (Past 12 Hours) Vital Signs Temp Pulse Resp BP Pulse Ox 03/21/22 07:25 36.6 C 104 H 16 145/80 H 96 PG Care Time/CCT Total # of Minutes Spent Total Time Spent with Patient: Total time spent is greater than 50% in coordination of care (as documented) at patient's floor/unit and/or counseling patient: Coding Level of Care Code 50334 Subseq Hosp Care Lvl 2 Diagnoses Closed right hip fracture S72.001A Alcohol use Z72.89 Hypertension I10 Hypertension type: essential hypertension Chronic kidney disease, stage 3 N18.30 Chronic kidney disease stage 3 subtype: unspecified whether 3a or 3b Chronic anticoagulation Z79.01 Paroxysmal atrial fibrillation I48.0 Hyperlipidemia E78.5 Fall W19.XXXA SIADH (syndrome of inappropriate ADH production) E22.2 (1) Hypertension Hypertension type: essential hypertension Qualified Code(s): I10 - Essential (primary) hypertension (2) Chronic kidney disease, stage 3 Chronic kidney disease stage 3 subtype: unspecified whether 3a or 3b Qualified Code(s): N18.30 - Chronic kidney disease, stage 3 unspecified
--- NOTE | 2022-03-21 11:00 | Orthopedic Progress Note ---
Date of Service March 21, 2022 Assessment & Plan (1) Fracture of femoral neck, right, closed: Plan: Patient will be n.p.o. after midnight tonight She is to be nonweightbearing on the right lower extremity Informed consent to perform a cemented right hip hemiarthroplasty tomorrow with Dr. Cherri jones was obtained and I served as a witness. Risks of the procedure were explained to the patient in detail and she agreed to proceed with surgical intervention. Appreciate further management by medicine service Admission and Anticipated Discharge Date Admission Date: March 20, 2022 Subjective This 86-year-old female is seen today for follow-up of a right hip fracture that she sustained after falling. Patient states she is not sure what caused her to fall, however she was intoxicated due to alcohol use. She was seen in the emergency department and diagnosed with a displaced right femoral neck fracture and admitted under medicine service. Consultation was performed by Dr. Cherri jones yesterday and we are planning on performing surgical intervention tomorrow morning. Currently the patient complains of right-sided hip pain and inability to move her leg. She denies chest pain, shortness of breath, fever, chills, sweats, lethargy or numbness or tingling in her right lower extremity. Review of Systems Review of Systems: All systems reviewed & are unremarkable except as noted in Subjective Physical Exam Physical Exam: Right hip: Patient has referred pain to the groin area with logroll testing. She is unable to perform an active straight leg raise test. She is able to actively dorsi and plantarflex her foot. She has exquisite tenderness with light passive internal and external hip rotation. Also noted she has swelling and ecchymosis to the anterior aspect of the knee. She is tender to palpation over the right groin in lateral aspect of her hip. Her leg is shortened and externally rotated. She is able to flex leg sensation intact and neurovascular intact in right lower extremity. Results & Data ([facility]) Vital Signs (Past 12 Hours) Vital Signs Temp Pulse Resp BP Pulse Ox 03/21/22 07:25 36.6 C 104 H 16 145/80 H 96 Diagnostic Findings Laboratory Results WBC 6.18 K/ul (4.8-10.8) 03/21/22 07:27 RBC 3.39 M/uL (3.93-5.22) L 03/21/22 07:27 Hgb 11.6 g/dl (12.0-16.0) L 03/21/22 07:27 POC Hgb 12.9 g/dl (12.0-16.0) 03/19/22 21:37 Hct 34.2 % (34.1-44.9) 03/21/22 07: POC Hct 38 % (37-47) 03/19/22 21:37 MCV 100.9 fL (80.0-100.0) H 03/21/22 07:27 MCH 34.2 pg (25.0-34.0) H 03/21/22 07:27 MCHC 33.9 g/dL (32.0-36.0) 03/21/22 07: RDW Std Deviation 45.1 fL (36.4-46.3) 03/21/22 07: RDW Coeff of Diana 12.2 % (11.5-14.5) 03/21/22 07:27 Plt Count 165 K/uL (130-400) 03/21/22 07:27 MPV 9.6 fL (9.4-12.3) 03/21/22 07:27 Immature Gran % (Auto) 0.3 % 03/21/22 07:27 Neut % (Auto) 78.6 % 03/21/22 07:27 Lymph % (Auto) 9.9 % 03/21/22 07:27 [place] % (Auto) 10.0 % 03/21/22 07:27 Eos % (Auto) 0.6 % 03/21/22 07:27 Baso % (Auto) 0.6 % 03/21/22 07:27 Neut # (Auto) 4.85 K/uL (1.4-6.5) 03/21/22 07:27 Lymph # (Auto) 0.61 K/uL (1.2-3.4) L 03/21/22 07:27 [place] # (Auto) 0.62 K/uL (0.24-0.82) 03/21/22 07:27 Eos # (Auto) 0.04 K/uL (0-0.50) 03/21/22 07:27 Baso # (Auto) 0.04 K/uL (0-0.2) 03/21/22 07:27 Immature Gran # (Auto) 0.02 K/uL (0.00-0.02) 03/21/22 07:27 POC Sodium 132 mmol/L (135-144) L 03/19/22 21:37 Sodium 135 mmol/L (136-145) L 03/21/22 07:27 POC Potassium 3.9 mmol/L (3.3-5.0) 03/19/22 21:37 Potassium 3.5 mmol/L (3.5-5.1) 03/21/22 07:27 POC Chloride 95 mmol/L (101-112) L 03/19/22 21:37 Chloride 98 mmol/L (98-107) 03/21/22 07:27 Carbon Dioxide 27 mmol/L (21-32) 03/21/22 07:27 POC Total CO2 24 mmol/L (24-31) 03/19/22 21:37 Anion Gap 10 (3-11) 03/21/22 07:27 POC Anion Gap 17.0 mmol/L (16-25) 03/19/22 21:37 POC BUN 29 mg/dl (7-18) H 03/19/22 21:37 BUN 20 mg/dl (6-23) 03/21/22 07:27 Creatinine 1.10 mg/dl (0.6-1.2) 03/21/22 07:27 POC Creatinine 2.0 mg/dl (0.6-1.3) H 03/19/22 21:37 Est Cr Clr Drug Dosing 29.2 ml/min 03/21/22 07:27 Est GFR ( Amer) 51.9 ml/min 03/21/22 07:27 Est GFR (Non-Af Amer) 44.8 ml/min 03/21/22 07:27 BUN/Creatinine Ratio 18.2 (10-20) 03/21/22 07:27 Glucose 87 mg/dl (70-99(Fasting)) 03/21/22 07:27 POC Glucose (other) 88 mg/dl (70-99) 03/19/22 21:37 Calcium 8.8 mg/dl (8.5-10.1) 03/21/22 07:27 POC Ioniz Calcium Jon 1.09 mmol/l (1.12-1.32) L 03/19/22 21:37 Magnesium 2.0 mg/dl (1.7-2.4) 03/19/22 21:35 Total Bilirubin 0.7 mg/dl (0.2-1.0) 03/19/22 21:35 AST 18 U/L (13-39) 03/19/22 21:35 ALT 13 U/L (7-52) 03/19/22 21:35 Alkaline Phosphatase 52 U/L (34-104) 03/19/22 21:35 Total Creatine Kinase 41 U/L (26-192) 03/19/22 21:35 Troponin I High Sens 5.7 pg/ml (0-14) 03/19/22 21:35 Total Protein 6.7 gm/dl (6.0-8.3) 03/19/22 21:35 Albumin 4.0 gm/dl (3.4-5.0) 03/19/22 21:35 Globulin 2.7 gm/dl (2.5-4.0) 03/19/22 21:35 Albumin/Globulin Ratio 1.5 (0.9-2) 03/19/22 21:35 Vitamin B12 139 pg/ml (180-914) L 03/20/22 15:27 Folate 7.41 ng/ml (>5.38) 03/20/22 15:27 TSH 4.140 uIu/ml (0.300-4.500) 03/19/22 21:35 Urine Color Yellow 03/20/22 01:54 Urine Appearance Cloudy (Clear) A 03/20/22 01:54 Urine pH 6.5 (4.5-7.5) 03/20/22 01:54 Ur Specific [place] 1.014 (1.000-1.030) 03/20/22 01:54 Urine Protein Negative (Negative) 03/20/22 01:54 Urine Glucose (UA) Negative (Negative) 03/20/22 01:54 Urine Ketones Trace (Negative) H 03/20/22 01:54 Urine Blood Negative (Negative) 03/20/22 01:54 Urine Nitrite Positive (Negative) A 03/20/22 01:54 Urine Bilirubin Negative (Negative) 03/20/22 01:54 Urine Urobilinogen Negative (Negative) 03/20/22 01:54 Ur Leukocyte Esterase 2+ (Negative) H 03/20/22 01:54 Urine WBC (Auto) >30 /hpf (0-5) H 03/20/22 01:54 Urine RBC (Auto) 0-4 /hpf (0-4) 03/20/22 01:54 U Hyaline Cast (Auto) 1-5 /lpf (0-5) 03/20/22 01:54 U Epithel Cells (Auto) >30 /lpf (0-5) H 03/20/22 01:54 Urine Bacteria (Auto) 4+ (Negative) H 03/20/22 01:54 Urine Opiates Screen Neg (Neg) 03/20/22 01:54 Ur Methadone, Qual Neg (Neg) 03/20/22 01:54 Urine Barbiturates Neg (Neg) 03/20/22 01:54 Ur Phencyclidine (PCP) Neg (Neg) 03/20/22 01:54 U Amphetamin/Meth Scrn Neg (Neg) 03/20/22 01:54 MDMA (Ecstasy) Screen Neg (Neg) 03/20/22 01:54 U Benzodiazepines Scrn Neg (Neg) 03/20/22 01:54 Ur Cocaine Metabolite Neg (Neg) 03/20/22 01:54 U Marijuana (THC) Screen Neg (Neg) 03/20/22 01:54 Ethyl Alcohol mg/dL 101.4 mg/dl (<10.0) H 03/20/22 02:15 SARS-CoV-2, RNA, NAAT NEGATIVE (NEGATIVE) 03/20/22 00:[address] 03/19/22 21:32 CT cervical spine wo con CLINICAL HISTORY: ams TECHNIQUE: Multidetector row helical CT of the cervical spine was performed without administration of intravenous contrast. Coronal and sagittal reformations were obtained. Automated dose lowering techniques and/or adjustment according to patient size were utilized for this exam. Comparison: Comparison is made to CT cervical spine 11/30/2020 FINDINGS: No acute fractures or subluxations are identified. Degenerative changes are seen in the visualized spine. The alignment is normal. Biapical scarring is seen in the lungs. Incidentally noted is prominent cerumen in the bilateral external auditory canals. IMPRESSION: Degenerative changes without evidence of acute bony injury. ACT 112: Negative or not required by law. Electronically signed by: Baltazar Gastelum M.D. 03/19/2022 10:[address] 03/19/22 21:32 CT facial bones wo con CLINICAL HISTORY: ams TECHNIQUE: Multidetector row helical CT of the maxillofacial bones was performed without administration of intravenous contrast, and processed with bone and soft tissue algorithms. Coronal and sagittal reformations were obtained. Automated dose lowering techniques and/or adjustment according to patient size were utilized for this exam. Comparison: None available at the time of this dictation. FINDINGS: Nasal bones are normal. The mandible is intact. The temporomandibular joints are anatomically aligned. Pterygoid plates are intact. Zygomatic arches are intact. The globes are normal and symmetric, without proptosis, obvious disruption or lens dislocation. There is no orbital radiopaque foreign body. The orbital frost are intact. The retrobulbar fat is without evidence of disruption. Extraocular muscles are normal and symmetric. Optic nerve sheath complexes are normal in course and caliber. Sphenoid sinus opacification is seen. IMPRESSION: 1. No acute facial fracture. 2. Sphenoid sinus disease. 3. Cerumen in the bilateral external auditory canals. ACT 112: Negative or not required by law. Electronically signed by: Baltazar Gastelum M.D. 03/19/2022 10:[address] 03/19/22 21:32 CT head/brain wo con CLINICAL HISTORY: ams Technique: Contiguous axial CT images of the head were acquired from the base of the skull to the vertex without intravenous contrast administration. Images were viewed in brain, subdural and bone windows. Automated dose lowering techniques and/or adjustment according to patient size were utilized for this exam. Comparison: Comparison is made to CT head 11/30/2020 Findings: Areas of decreased attenuation are present in the periventricular and subcortical white matter bilaterally consistent with small vessel ischemic disease. Generalized cerebral atrophy with commensurate enlargement of the ventricles, sulci, and cisterns is also present. There is no acute intracranial hemorrhage or evidence of acute territorial infarction. No shift of the midline structures, mass effect, or extra-axial abnormalities are shown. Atherosclerotic calcifications are present in the intracranial segments of the internal carotid arteries. Focal encephalomalacia in the left MCA territory is unchanged. Imaged portions of the paranasal sinuses and mastoid air cells are clear. The orbits appear normal. There are no acute fractures of the calvaria. Soft tissue swelling is seen in the occiput. Impression: No acute intracranial hemorrhage or skull fractures. Scalp swelling is seen in the occiput. ACT 112: Negative or not required by law. Electronically signed by: Baltazar Gastelum M.D. 03/19/2022 10:06 PM Chest X-Ray 03/19/22 21:33 XR chest 1V portable CLINICAL HISTORY: weakness TECHNIQUE: Single frontal radiograph of the chest was obtained. Comparison: Comparison is made to chest radiograph 11/30/[address] thorax 09/13/2015 FINDINGS: No lines and tubes are seen. Calcified aortic knob is seen. The lungs are clear. No evidence of pleural effusion or pneumothorax. Degenerative changes are seen in the right greater than left shoulder joints. IMPRESSION: No acute chest disease. ACT 112: Negative or not required by law. Electronically signed by: Baltazar Gastelum M.D. 03/19/2022 10:00 PM Hip/Pelvis X-Ray 03/19/22 22:40 XR hip RT 2V w pelvis CLINICAL HISTORY: fall, pain COMPARISON: Pelvis radiograph November 30, 2020. FINDINGS: Note is made of an acute displaced right femoral neck fracture. No additional acute fractures are identified within the pelvis or hips. Sacroiliac joints and symphysis pubis are intact. Surgical clips and staple lines are i ncidentally noted. IMPRESSION: Acute displaced right femoral neck fracture. ACT 112: Negative or not required by law. Electronically signed by: Bryan Villalta M.D. 03/20/2022 7:16 AM Shoulder X-Ray 03/19/22 22:40 XR shoulder RT min 2V routine CLINICAL HISTORY: fall, pain COMPARISON: Right humerus radiographs December 02, 2019. FINDINGS: No acute fracture within the right shoulder is identified. There is elevation of the right humeral head with narrowing of the subacromial space. Moderate to severe degenerative changes of the right shoulder are present. IMPRESSION: 1. No acute fracture or dislocation within the right shoulder. 2. 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 ACT 112: Negative or not required by law. Electronically signed by: Bryan Villalta M.D. 03/20/2022 7:17 AM
[2022-03-21] MEDS: MoRPHine SULFATE 2 MG/ML CARP IV PRN (15:00)
[2022-03-21] MEDS ORDERED: SODIUM CHLORIDE 0.9% 1000ML 1,000 ML IV SCH (16:45)
[2022-03-22] MEDS: cefTRIAXone SODIUM 2,000 MG in DEXTROSE 5% 50 ML IV SCH (08:54)
[2022-03-22] MEDS: METOPROLOL SUCC 50MG EXT REL TAB PO SCH (09:22)
[2022-03-22] MEDS: THIAMINE HCL 100 MG TAB PO SCH (09:22)
[2022-03-22] MEDS: ROSUVASTATIN CALCIUM 5 MG TAB PO SCH (09:22)
[2022-03-22] MEDS: FOLIC ACID 1 MG TAB PO SCH (09:22)
[2022-03-22] MEDS: CYANOCOBALAMIN (B-12) 500 MCG TABLET PO SCH (09:22)
[2022-03-22] MEDS: FUROSEMIDE 20 MG TAB PO SCH (09:22)
[2022-03-22] MEDS: CYANOCOBALAMIN 1000 MCG/ML VIAL IM SCH (09:23)
[2022-03-22] MEDS: VERAPAMIL HCL 120 MG TABCR PO SCH (09:23)
[2022-03-22] MEDS: MoRPHine SULFATE 2 MG/ML CARP IV PRN (09:30)
--- NOTE | 2022-03-22 09:41 | Orthopedic Progress Note ---
Date of Service March 22, 2022 Assessment & Plan (1) Fracture of femoral neck, right, closed: Plan: She is currently n.p.o. She is to be nonweightbearing on the right lower extremity, addressed preoperatively. Sent on patient chart. Plan for hemiarthroplasty right hip with Dr. Simmons today. All questions were answered. She denies having any further questions regarding her upcoming procedure. Appreciate further management by medicine service. Admission and Anticipated Discharge Date Admission Date: March 20, 2022 Supervising Physician Co-Signing Physician Notes I saw and examined patient in the pre-op holding area. Signed her R hip surgical site. Reviewed the risks/benefits of surgery. All questions answered. Consent form signed. Proceed to OR for cemented hemiarthroplasty R hip. Subjective Patient resting in bed. No complaints of pain in her right hip at bedrest. She states that she is ready for surgery and to "get it over with". She is currently n.p.o. Consent is on the chart. She states that she has no questions regarding her upcoming surgery. Physical Exam Musculoskeletal: Right leg distal pulses are 1+. Normal sensation. Tolerates gentle ankle range of motion actively. No range of motion of the right hip attempted. The right leg is externally rotated and shortened. Results & Data ([facility]) Vital Signs (Past 12 Hours) Vital Signs Temp Pulse Resp BP Pulse Ox O2 Del Method 03/22/22 06:06 36.9 C 74 16 175/79 H 100 Room Air 03/22/22 05:39 36.6 C 82 18 122/72 96 Room Air Laboratory Results 03/21/22 Range/Units 20:17 Blood Type A Positive Antibody Screen NEGATIVE
--- NOTE | 2022-03-22 10:19 | Hospitalist Progress Note ---
Date of Service March 22, 2022 Assessment & Plan (1) Closed right hip fracture: Plan: Josiane Shannon is an 86-year-old female with past medical history of hypertension, CKD stage III, paroxysmal A. fib on Xarelto, hyperlipidemia, prior falls due to alcohol intoxication, iron deficiency anemia, urinary incontinence who presents due to a fall. Right hip displaced femoral neck fractureOR repair 03/22 Dr Simmons Patient does not remember and it was unwitnessed, patient has history of prior fall due to alcohol intoxication, alcohol levels elevated on admission CT head clear, no C-spine fracture Patient with alcohol intoxication, Regular diet with boost Hold Xarelto, restart when hemostasis is secure, Chronic alcohol use Patient drinks 2 glasses of wine every day, reports she has not had an alcohol free day in "a long time " Denies history of seizures, withdrawal, tremors but has not had an alcohol free day in some time If tremors, diaphoresis, or shakes develop switch to active protocol, will follow at risk protocol at this time B12 profoundly low, IM given x1 and oral supplementation started 03/22. 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 fib Continue metoprolol and verapamil Hold Xarelto Hyperlipidemia Continue rosuvastatin Overactive bladder Continue Solifenacin DVT prophylaxis: Held pending surgery Diet: boost CODE STATUS: Full (2) Alcohol use: (3) Hypertension: (4) Chronic kidney disease, stage 3: (5) Chronic anticoagulation: (6) Paroxysmal atrial fibrillation: (7) Hyperlipidemia: (8) Fall: (9) SIADH (syndrome of inappropriate ADH production): Admission and Anticipated Discharge Date Admission Date: March 20, 2022 Subjective this pt is seen in pacu and doing well still under a bit of anesthesia Review of Systems Review of Systems: Mild distress and fatigue no headache, no visual changes no speech or swallowing issues no chest pain, pressure or palpitations no shortness of breath, cough or wheezes no abdominal pain, nausea or vomiting, diarrhea or constipation no dysuria, hematuria or frequency Right hip pain no back pain, CVA tenderness or radicular pain no bruising, bleeding or rashes no focal signs of weakness or numbness or altered sensation no complaints of anxiety or depression. Physical Exam Physical Exam: The patient appeared stable Vital signs as documented. Lungs are clear to auscultation and appear unlabored Cardiac exam, Rhythm is regular.. No murmurs, rubs or gallops. Abdominal exam reveals normal bowel sounds, soft non tender, no masses Extremities patient right hip surgery with some minor pain Neurologic exam is alert and oriented, no focal loss of strength or sensation Skin is without bruises or rashes Psychologically is without concerns for anxiety or depression. Results & Data Results & Data ([facility]) Vital Signs (Past 12 Hours) Vital Signs Temp Pulse Resp BP Pulse Ox O2 Del Method 03/22/22 06:06 98.4 F 74 16 175/79 H 100 Room Air 03/22/22 05:39 97.9 F 82 18 122/72 96 Room Air PG Care Time/CCT Total # of Minutes Spent Total Time Spent with Patient: Total time spent is greater than 50% in coordination of care (as documented) at patient's floor/unit and/or counseling patient: Coding Level of Care Code 36737 Subseq Hosp Care Lvl 2 Diagnoses Closed right hip fracture S72.001A Alcohol use Z72.89 Hypertension I10 Hypertension type: essential hypertension Chronic kidney disease, stage 3 N18.30 Chronic kidney disease stage 3 subtype: unspecified whether 3a or 3b Chronic anticoagulation Z79.01 Paroxysmal atrial fibrillation I48.0 Hyperlipidemia E78.5 Fall W19.XXXA SIADH (syndrome of inappropriate ADH production) E22.2 (1) Chronic kidney disease, stage 3 Chronic kidney disease stage 3 subtype: unspecified whether 3a or 3b Qualified Code(s): N18.30 - Chronic kidney disease, stage 3 unspecified (2) Hypertension Hypertension type: essential hypertension Qualified Code(s): I10 - Essential (primary) hypertension
[2022-03-22 10:21] LABS: Hematocrit (blood only) 31.7 % (34.1-44.9); Hemoglobin 10.8 g/dl (12.0-16.0); Mean Corpuscular Hemoglobin 34.5 pg (25.0-34.0); Mean Corpuscular Hgb Conc 34.1 g/dL (32.0-36.0); Mean Corpuscular Volume 101.3 fL (80.0-100.0); Mean Platelet Volume 10.3 fL (9.4-12.3); Platelet Count 176 K/uL (130-400); RDW Coefficient of Variation 11.9 % (11.5-14.5); RDW Standard Deviation 43.8 fL (36.4-46.3); Red Blood Count 3.13 M/uL (3.93-5.22); White Blood Count 7.12 K/ul (4.8-10.8)
[2022-03-22 10:39] LABS: BUN Creatinine Ratio 19.2 (10-20); Calcium 8.5 mg/dl (8.5-10.1); Creatinine Clr Calc Pharmacy 32.5 ml/min; Est GFR (Non-African American) 50.9 ml/min; Potassium 3.9 mmol/L (3.5-5.1)
[2022-03-22 10:40] LABS: Basophils # (auto) 0.04 K/uL (0-0.2); Basophils % (auto) 0.6 %; Eosinophils # (auto) 0.09 K/uL (0-0.50); Eosinophils % (auto) 1.3 %; Immature Granulocytes # (auto) 0.03 K/uL (0.00-0.02); Immature Granulocytes % (auto) 0.4 %; Lymphocytes # (auto) 0.81 K/uL (1.2-3.4); Lymphocytes % (auto) 11.4 %; Monocytes # (auto) 0.61 K/uL (0.24-0.82); Monocytes % (auto) 8.6 %; Neutrophils # (auto) 5.54 K/uL (1.4-6.5); Neutrophils % (auto) 77.7 %
--- NOTE | 2022-03-22 12:01 | Anesthesiology Consultation ---
Date of Service March 22, 2022 Assessment & Plan (1) Encounter for pre-operative examination: Chart Review Chart Review: entry level recruiter initiated History Surgery Operation Date: 03/22/22 07:00 Proposed Procedures p Right Cemented Hip Hemidarthroplasty - Pedro Simmons MD Height/Weight Height: 5 ft 3 in Weight: 57.1 kg Allergies Allergy/AdvReac Type Severity Reaction Status Date / Time shrimp Allergy Intermediate BREAKS OUT Verified 03/19/22 23:10 IN HIVES Medications Home Medications Medication Instructions Recorded Confirmed Last Taken coenzyme Q10 100 mg capsule 100 mg PO QAM 06/21/19 03/19/22 03/19/22 (CoQ-10) rivaroxaban 15 mg tablet (Xarelto) 15 mg PO DAILY #30 tabs 07/29/20 03/19/22 03/19/22 metoprolol succinate 50 mg 50 mg PO DAILY #90 tabs 08/12/21 03/19/22 03/19/22 tablet,extended release 24 hr verapamil 120 mg tablet,extended 120 mg PO DAILY #90 tabs 09/12/21 03/19/22 03/19/22 release furosemide 20 mg tablet 20 mg PO 3XWK 03/19/22 03/19/22 03/17/22 rosuvastatin 5 mg tablet 5 mg PO 3XWK 03/19/22 03/19/22 03/17/22 solifenacin 5 mg tablet (Vesicare) 5 mg PO DAILY #30 tabs 03/21/22 Unknown Active Medications Generic Name Dose Route Start Last Admin Trade Name Eleazar PRN Reason Stop Dose Admin Cyanocobalamin 1,000 mcg 03/21/22 09:00 03/22/22 09:23 Cyanocobalamin 1000 Mcg/Ml Vial IM 04/20/22 08:59 1,000 mcg QAM MARION Administration Cyanocobalamin 500 mcg 03/22/22 09:00 03/22/22 09:22 Cyanocobalamin (B-12) 500 Mcg Tablet PO 04/21/22 08:59 500 mcg QAM MARION Administration Folic Acid 1 mg 03/20/22 15:15 03/22/22 09:22 Folic Acid 1 Mg Tab PO 04/19/22 15:14 1 mg QAM MARION Administration Furosemide 20 mg 03/20/22 09:00 03/22/22 09:22 Furosemide 20 Mg Tab PO 04/19/22 08:59 20 mg [id number] MARION Administration Ceftriaxone Sodium 2,000 mg/ 70 mls @ 100 mls/hr 03/21/22 09:00 03/22/22 09:39 Dextrose IV 03/24/22 09:41 Infused DAILY MARION Infusion Protocol Metoprolol Succinate 50 mg 03/20/22 09:00 03/22/22 09:22 Metoprolol Succ 50mg Ext Rel Tab PO 04/19/22 08:59 50 mg DAILY MARION Administration Morphine Sulfate 1 - 2 mg 03/20/22 04:41 03/22/22 09:30 Morphine Sulfate 2 Mg/Ml Carp IV 04/03/22 04:40 1 mg Q3H PRN Administration Pain Solifenacin 1 each 03/21/22 09:15 03/22/22 09:23 PO 04/20/22 09:14 1 tab Q24H MARION Administration Rosuvastatin Calcium 5 mg 03/20/22 09:00 03/22/22 09:22 Rosuvastatin Calcium 5 Mg Tab PO 04/19/22 08:59 5 mg [id number] MARION Administration Thiamine HCl 100 mg 03/20/22 15:15 03/22/22 09:22 Thiamine Hcl 100 Mg Tab PO 04/19/22 15:14 100 mg QAM MARION Administration Verapamil HCl 120 mg 03/20/22 09:00 03/22/22 09:23 Verapamil Hcl 120 Mg Tabcr PO 04/19/22 08:59 120 mg DAILY MARION Administration NPO Date Last Intake of Fluids: 03/21/22 Time Last Intake of Fluids: 18:30 Date Last Intake of Solids: 03/21/22 Time Last Intake of Solids: 18:30 Past Medical History Medical History Abdominal abscess Alcohol intoxication Chronic kidney disease, stage 3 Closed head injury Current use of fpc anticoagulation Fall Ganglion cyst GI bleed Hypertension Orthostatic hypotension SIADH (syndrome of inappropriate ADH production) Syncope Syncope Ventral hernia Past Family History Family History Sister Breast cancer Unknown Diabetes Heart disease Father Myocardial infarction Denies family history of Ovarian cancer Prostate cancer Colorectal cancer Past Surgical History Surgical History H/O dilation and curettage H/O oral surgery History of cataract surgery History of partial colectomy History of tubal ligation Social History Smoking Status: Former smoker tobacco type: cigarettes Hx Alcohol Use: Yes Alcohol type: wine and hard liquor alcohol intake frequency: 3 or more drinks per day Alcohol Intake Frequency Comment: 2 glasses of wine and gerda Hx Substance Use: No Physical Exam Vital Signs Last Vital Signs Temp 98.6 F 03/22/22 11:38 Pulse 72 03/22/22 11:38 Resp 18 03/22/22 11:38 BP 175/84 H 03/22/22 11:38 Pulse Ox 99 03/22/22 11:38 O2 Del Method 03/22/22 11:38 O2 Flow Rate 2 03/20/22 09:39 Testing Laboratory Results 03/22/22 09:39 03/22/22 09:39 Urine Color Yellow 03/20/22 01:54 Urine Appearance Cloudy (Clear) A 03/20/22 01:54 Urine pH 6.5 (4.5-7.5) 03/20/22 01:54 Ur Specific [place] 1.014 (1.000-1.030) 03/20/22 01:54 Urine Protein Negative (Negative) 03/20/22 01:54 Urine Glucose (UA) Negative (Negative) 03/20/22 01:54 Urine Ketones Trace (Negative) H 03/20/22 01:54 Urine Nitrite Positive (Negative) A 03/20/22 01:54 Ur Leukocyte Esterase 2+ (Negative) H 03/20/22 01:54 Urine WBC (Auto) >30 /hpf (0-5) H 03/20/22 01:54 Urine RBC (Auto) 0-4 /hpf (0-4) 03/20/22 01:54 U Hyaline Cast (Auto) 1-5 /lpf (0-5) 03/20/22 01:54 U Epithel Cells (Auto) >30 /lpf (0-5) H 03/20/22 01:54 Urine Bacteria (Auto) 4+ (Negative) H 03/20/22 01:54 Blood Type A Positive 03/21/22 20:17 Antibody Screen NEGATIVE 03/21/22 20:17 03/20/22 01:54 Urine Culture - Final Urine,Clean Catch Klebsiella pneumoniae Electrocardiogram Date: 03/19/22 Normal sinus rhythm, rate 66 bpm Low voltage QRS Nonspecific T wave abnormality Abnormal ECG When compared with ECG of 30-NOV-2020 03:21, Sinus rhythm has replaced Atrial fibrillation Confirmed by Neil Cummings ([id number]) on 03/20/2022 7:33:21 AM Chest X-Ray Date: 03/19/22 Findings: + NAD Echocardiogram Date: 11/30/20 LV is hyperdynamic LA is moderately dilated Mild to mod MR RVSP is elevated at 30-40mmHg
[2022-03-22] MEDS ORDERED: ATROPINE SULFATE 0.1 MG/ML 10ML SYR IV PRN (12:15)
[2022-03-22] MEDS ORDERED: ePHEDrine sulfate 50 MG/ML AMP IV PRN (12:15)
[2022-03-22] MEDS ORDERED: ONDANSETRON INJ 2 MG/ML 2 ML VIAL IV PRN (12:15)
[2022-03-22] MEDS ORDERED: fentaNYL citrate 100 MCG/2 ML VIAL IV PRN (12:15)
[2022-03-22] MEDS ORDERED: PHENYLEPHRINE 100MCG/ML 5ML SYR ONE (12:30)
[2022-03-22] MEDS ORDERED: PROPOFOL IV EMULSION 10 MG/ML 20 ML VIAL IV ONE (12:30)
[2022-03-22] MEDS ORDERED: ePHEDrine sulfate 50 MG/ML AMP ONE (12:30)
[2022-03-22] MEDS ORDERED: LIDOCAINE 2% MPF LOCAL 5 ML VIAL INFIL ONE (12:30)
[2022-03-22] MEDS ORDERED: fentaNYL citrate 100 MCG/2 ML VIAL ONE (12:30)
[2022-03-22] MEDS ORDERED: MIDAZOLAM HCL 1 MG/ML 2ML VIAL ONE (12:30)
[2022-03-22] MEDS ORDERED: ORTHO JOINT ANESTHETIC ONE (13:09)
[2022-03-22] MEDS ORDERED: ROPIVACAINE 0.5% HCL/PF 150 MG, BUPIVACAINE 0.75% MPF 20 ML, EPINEPHrine 0.15 MG, Ketor... INFIL SCH (13:30)
[2022-03-22] MEDS ORDERED: ONDANSETRON INJ 2 MG/ML 2 ML VIAL ONE (13:46)
[2022-03-22] MEDS ORDERED: DEXAMETHASONE SOD INJ 4 MG/ML VIAL ONE (13:46)
[2022-03-22] MEDS ORDERED: ceFAZolin 330 MG/ML 1 GM VIAL ONE (13:46)
[2022-03-22] MEDS ORDERED: GLYCOPYRROLATE 0.2 MG/ML VIAL ONE (13:46)
[2022-03-22] MEDS ORDERED: NEOSTIGMINE METHYLSULFATE 1 MG/ML 10ML VIAL ONE (13:46)
[2022-03-22] MEDS ORDERED: ROCURONIUM BROMIDE 10 MG/ML 5 ML VIAL IV ONE (13:46)
[2022-03-22] MEDS ORDERED: TRANEXAMIC ACID 1,000 MG in 0.9 % SODIUM CHLORIDE 100 ML TOP SCH (14:00)
[2022-03-22] MEDS ORDERED: ceFAZolin 1000MG 1,000 MG/7.5 ML SYR IV ONE (14:24)
--- NOTE | 2022-03-22 15:05 | Post Operative Brief Note ---
Immediate Post Op Note v1 Date of Surgery March 22, 2022 Pre & Post Diagnosis Operation Date: 03/22/22 07:00 Pre-Op Diagnosis: Closed Displaced Fracture of right femoral neck Post-Op Diagnosis: Closed Displaced Fracture of right femoral neck I identified the patient and participated in the time-out.: Yes Procedure Operation Date: 03/22/22 07:00 Actual Procedures p Right Cemented Hip Hemiarthroplasty(Right) - Pedro Simmons MD Surgeon Pedro Simmons MD Bereavement Counselor Tristian Snider MD Estimated Blood Loss 50 Findings Consistent with Post-Op Diagnosis Fluids 1000 cc Drains Nelson Catheter (Patient arrived to operating room with Nelson intact and draining urine) Anesthesia Type General Complications none Disposition Disposition: Recovery Room
--- NOTE | 2022-03-22 15:14 | Operative Report ---
Post Operative Report Pre & Post Diagnosis Operation Date: 03/22/22 07:00 Pre-Op Diagnosis: Closed Fracture of right femoral neck Post-Op Diagnosis: Closed Fracture of right femoral neck I identified the patient and participated in the time-out.: Yes Procedure Operation Date: 03/22/22 07:00 Actual Procedures p Right Cemented Hip Hemidarthroplasty(Right) - Pedro Simmons MD Surgeon Pedro Simmons MD Field Case Manager Tristian Snider DO Estimated Blood Loss 50 Findings Consistent with Post-Op Diagnosis Specimens Femoral head/neck Disposition Accompanied Patient To Recovery: Yes Disposition: Recovery Room Description of Procedure Patient was taken to the operating room where anesthesia was administered. Patient was prepped and draped in the usual sterile fashion. Please see attending's operative report for specifics of the procedure. I was present for the entire case from initial patient positioning through final wound closure. Assistance was provided in tissue retraction, hemostasis, and final wound closure. Patient was taken to the recovery room in satisfactory condition. I attest to the content of the Intraoperative Record and any orders documented therein. Any exceptions are noted below.
--- NOTE | 2022-03-22 15:54 | XRay Report ---
RIGHT KNEE 2 VIEWS CLINICAL HISTORY: Right knee pain and swelling. Bruising. Fall. FINDINGS: AP and crosstable lateral views of the right knee are compared to study dated 02/25/2013. Th e skeletal structures are osteopenic. No acute fracture seen. There is chronic posttraumatic deformit y of the proximal fibular shaft. There is mild tricompartmental degenerative joint space narrowing. C hondrocalcinosis is noted in the medial and lateral compartments. There are tiny marginal osteophytes . A joint effusion is observed. There is prepatellar soft tissue swelling. There is atherosclerotic c alcification of the popliteal artery. IMPRESSION: 1. Soft tissue swelling and joint effusion with no acute fracture seen. 2. There is chronic posttraumatic deformity of the proximal fibula. 3. Osteopenia with degenerative change and chondrocalcinosis as above. Electronically signed by: Avelino Freitas M.D. 03/22/2022 3:52 PM
--- NOTE | 2022-03-22 16:07 | Anesthesiology Progress Note ---
Date of Service March 22, 2022 Anesthesia Post Procedure Vital Signs Vital Signs: Temp Pulse Pulse Pulse Resp BP Pulse Ox 03/22/22 16:00 59 L 21 122/59 L 100 03/22/22 15:50 58 L 17 123/57 L 100 03/22/22 15:40 60 20 133/60 93 03/22/22 15:30 61 23 120/74 100 03/22/22 15:20 65 21 115/55 L 100 03/22/22 15:10 36.3 C L 66 23 106/50 L 100 03/22/22 11:38 37.0 C 72 72 18 175/84 H 99 03/22/22 06:06 36.9 C 74 16 175/79 H 100 03/22/22 05:39 36.6 C 82 18 122/72 96 03/21/22 19:08 36.6 C 69 18 105/63 95 O2 Del Method O2 Flow Rate 03/22/22 16:00 Nasal Cannula 2 03/22/22 15:50 Nasal Cannula 2 03/22/22 15:40 Room Air 03/22/22 15:30 Oxymask 10 03/22/22 15:20 Oxymask 10 03/22/22 15:10 Oxymask 10 03/22/22 11:38 Room Air 03/22/22 06:06 Room Air 03/22/22 05:39 Room Air 03/21/22 19:08 Room Air Pain Intensity Right Hip: Pain Intensity: 8 Transfer of Care Handoff Completed per policy Notes Mental Status: alert / awake / arousable Patient Amnestic to Procedure: Yes Nausea / Vomiting: adequately controlled Pain: adequately controlled Airway Patency, RR, SpO2: stable & adequate BP & HR: stable & adequate Hydration State: stable & adequate Anesthetic Complications: no major complications apparent
--- NOTE | 2022-03-22 17:02 | XRay Report ---
SINGLE VIEW PELVIS CLINICAL HISTORY: Postoperative examination. FINDINGS: An AP, portable, supine view of the hips and lower pelvis is compared to study dated 03/19/20. The skeletal structures are osteopenic. No acute fracture is identified. A right hip arthroplasty is in near anatomic alignment. Moderate arthritic change and joint space narrowing is seen in the le ft hip. Subcutaneous gas and soft tissue edema overlying the right hip are expected postoperative alfred nges. Degenerative sclerosis is noted in the sacroiliac joints and pubic symphysis. A Nelson catheter is in place. There is atherosclerotic calcification of the femoral arteries. IMPRESSION: Expected postoperative findings status post right hip arthroplasty placement. No acute fr acture is seen. Electronically signed by: Avelino Freitas M.D. 03/22/2022 5:00 PM
--- NOTE | 2022-03-22 17:09 | Operative Report (OR) ---
DATE OF SURGERY: 03/22/2022 PREOPERATIVE DIAGNOSIS: Displaced right femoral neck fracture. POSTOPERATIVE DIAGNOSIS: Displaced right femoral neck fracture. OPERATION PERFORMED: Right hip cemented bipolar hemiarthroplasty. SURGEON: Pedro Simmons MD. HARDWARE PRESS OPERATOR: Tristian Snider DO. ESTIMATED BLOOD LOSS: 50 mL. INTRAVENOUS FLUIDS: 1 liter of crystalloid. SPECIMENS: Right femoral head. COMPLICATIONS: None. IMPLANTS: 1. [place] size 3 cemented standard offset tapered stem. 2. 10 mm cementralizer. 3. A 28 mm diameter metal +15 offset head. 4. Bipolar head, 28 x 44 mm. INDICATIONS: The patient is an 86-year-old female with medical history significant for being on Xare lto 15 mg per day, who fell late on Sunday. She presented to the emergency room in the middle of [facility] on Sunday. She was complaining of right hip pain. She was noted to have elevated blood alcohol c onsistent with acute alcohol intoxication. She was also found to have a displaced right femoral neck fracture. She was admitted to the Internal Medicine service, I saw and examined her. Her leg was s hortened and externally rotated. Surgery was indicated to allow her to regain the ability to ambulat e. I had a long discussion with her about the risks and benefits of surgery, alternatives, and expec zoran outcomes. We did have to wait until Sunday to perform her surgery as we did not have the Xare lto reversal agent available at our hospital. After reviewing the risks and benefits of surgery, alt ernatives and expected outcome, she elected to proceed. All questions were answered, informed consen t was signed. OPERATIVE FINDINGS: Hemiarthroplasty was performed through a posterior approach using a cemented bip olar component. DESCRIPTION OF OPERATION: The patient was identified in the preoperative holding area where her surg ical site was marked. She was brought back to the main operating room where general anesthesia was a dministered on the hospital bed. She was then carefully transferred onto the operating room table. She was moved up into the lateral decubitus position. All bony prominences were padded. Perioperati ve antibiotics were administered. She was prepped and draped in the usual sterile fashion. Prior to incision, a multidisciplinary timeout was called. All in the room were in agreement. We began by making a 10 cm long incision for a posterior approach to the hip. I dissected down to kelley bcutaneous tissues to the level of the fascia. The fascia was incised in line with the incision. A Charnley was placed. Inspection of her greater trochanter revealed a tear of the gluteus medius. Th is was only partially torn. The gluteus minimus appeared intact. We then exposed the piriformis and short external rotators. We elevated the gluteus medius off the lateral capsule the hip and then re leased the upper border of the quadratus femoris. The piriformis and short external rotators were di ssected off the posterior aspect of the hip. We then made a box cut in the capsule, taking great car e to preserve the labrum. The hip was then internally rotated and we were able to remove the fractur ed femoral head. This was sized on the back table size 44. We freshened up our femoral neck cut usi ng the angled cutting guide. I then exposed the acetabulum and used our trial 44 head and we had a g reat suction seal in the acetabulum. I did excise the remainder of the ligamentum teres. Next, the faint femur was re-exposed. A box osteotome was used followed by the canal finder. Latera lizing reamer was used. We then broached up to a size 3 broach. A 44 mm bipolar head was attached w ith the +15 offset. We reduced the hip. Leg lengths were symmetric. She was stable in extension, e xternal rotation. Stable in the sleeper position. The hip at 90 degrees could be internally rotated 70 degrees before leaving out of the cup. I was very happy with the stability exam. Therefore, the hip was atraumatically dislocated and the trial components were removed. The femoral canal was irri gated out and dried. The cement restrictor was placed down the femoral canal. We then mixed the soo ent on the back table. Once the cement was ready, it was pressurized using my thumbs in the canal. I then inserted the prosthesis and held the prosthesis in approximately 25 degrees of anteversion unt il the cement was cured. At this point, the actual implant sat at the same level as the broach, so we opened a +15 inner head as well as the 44 mm diameter outer head. We then reduced the hip. Her stability exam was the same. We then began to close. Wound was irrigated out with copious amounts of Betadine solution. The subcutaneous tissues were inj ected with the periarticular cocktail. I then irrigated out the Betadine and dried the wound. We th en placed 100 mL of topical tranexamic acid in the wound and allowed this to sit for 2 minutes. We t gregoria suctioned this out and closed the piriformis and short external rotators as well as the capsule i n one layer with #2 Vicryl sutures. One stitch was placed through the abductor tendon and the second one was placed through a single drill hole in the trochanter. The sutures were tied to one another. A PDS suture in [id number] fashion was used to suture the piriformis to the gluteus minimus. The fascia was closed with a running looped #1 PDS. The subcutaneous layer was closed with 0 PDS. D eep dermal layer was closed with 2-0 Vicryl. Dermabond and a ZipLine were placed on the skin. A Norah verlon dressing was applied. The patient was then awoken from anesthesia and transferred to the [facility] very room in stable condition. POSTOPERATIVE COURSE: The patient will be readmitted to the floor to the Internal Medicine service. She will be on posterior hip precautions. She can weight bear as tolerated. Job ID: [id number]
[2022-03-23] MEDS: FOLIC ACID 1 MG TAB PO SCH (08:05)
[2022-03-23] MEDS: VERAPAMIL HCL 120 MG TABCR PO SCH (08:05)
[2022-03-23] MEDS: THIAMINE HCL 100 MG TAB PO SCH (08:05)
[2022-03-23] MEDS: CYANOCOBALAMIN (B-12) 500 MCG TABLET PO SCH (08:05)
[2022-03-23] MEDS: CYANOCOBALAMIN 1000 MCG/ML VIAL IM SCH (08:05)
[2022-03-23] MEDS: METOPROLOL SUCC 50MG EXT REL TAB PO SCH (08:05)
[2022-03-23] MEDS: cefTRIAXone SODIUM 2,000 MG in DEXTROSE 5% 50 ML IV SCH (09:24)
--- NOTE | 2022-03-23 10:31 | Orthopedic Progress Note ---
Date of Service March 23, 2022 Assessment & Plan (1) S/P hip hemiarthroplasty: Plan: Total hip precautions Weightbearing as tolerated with walker assistance Ice with easy graft Abduction pillow use x6 weeks PT/OT Pain controlled p.o. medication DVT prophylaxis with Xarelto and LUZ stockings Discharge is pending internal medicine's discretion. Patient will follow-up in our clinic as scheduled on April 03 With questions contact our clinic at [phone] Admission and Anticipated Discharge Date Admission Date: March 20, 2022 Subjective This 86-year-old female is seen for her day 1 follow-up after undergoing a right hip hemiarthroplasty. Patient states she is doing well. She states her pain is well controlled p.o. pain medication. She denies chest pain, shortness of breath, fever, chills, sweats or numbness or tingling in the right lower extremity. She states she lives at home with her son but does not want to burden him with her care and feels that she may need to go to a rehab facility. She states she has been to [facility] before and had a good experience. Review of Systems Review of Systems: All systems reviewed & are unremarkable except as noted in Subjective Physical Exam Physical Exam: Right hip: Silverlon dressing is clean dry and intact. Logroll testing causes no pain. She is unable to perform an active straight leg raise test. She is able to actively dorsi and plantarflex her foot. Quad strength is 2+ out of 5. Patient continues to have some mild tenderness in the groin and experiences tensile pain with light passive internal hip rotation. Passive external rotation and flexion near 90 degrees causes no discomfort. She is neurovascularly intact in the right lower extremity. Results & Data ([facility]) Vital Signs (Past 12 Hours) Vital Signs Temp Pulse Resp BP BP Pulse Ox O2 Del Method 03/23/22 07:15 36.6 C 64 16 129/76 99 Room Air 03/23/22 03:24 36.4 C L 64 18 117/60 100 Nasal Cannula O2 Flow Rate 03/23/22 07:15 03/23/22 03:24 2 Diagnostic Findings Laboratory Results WBC 7.12 K/ul (4.8-10.8) 03/22/22 09:39 RBC 3.13 M/uL (3.93-5.22) L 03/22/22 09:39 Hgb 10.8 g/dl (12.0-16.0) L 03/22/22 09:39 POC Hgb 12.9 g/dl (12.0-16.0) 03/19/22 21:37 Hct 31.7 % (34.1-44.9) L 03/22/22 09:39 POC Hct 38 % (37-47) 03/19/22 21:37 MCV 101.3 fL (80.0-100.0) H 03/22/22 09:39 MCH 34.5 pg (25.0-34.0) H 03/22/22 09:39 MCHC 34.1 g/dL (32.0-36.0) 03/22/22 09:39 RDW Std Deviation 43.8 fL (36.4-46.3) 03/22/22 09:39 RDW Coeff of Diana 11.9 % (11.5-14.5) 03/22/22 09:39 Plt Count 176 K/uL (130-400) 03/22/22 09:39 MPV 10.3 fL (9.4-12.3) 03/22/22 09:39 Immature Gran % (Auto) 0.4 % 03/22/22 09:39 Neut % (Auto) 77.7 % 03/22/22 09:39 Lymph % (Auto) 11.4 % 03/22/22 09:39 [place] % (Auto) 8.6 % 03/22/22 09:39 Eos % (Auto) 1.3 % 03/22/22 09:39 Baso % (Auto) 0.6 % 03/22/22 09:39 Neut # (Auto) 5.54 K/uL (1.4-6.5) 03/22/22 09:39 Lymph # (Auto) 0.81 K/uL (1.2-3.4) L 03/22/22 09:39 [place] # (Auto) 0.61 K/uL (0.24-0.82) 03/22/22 09:39 Eos # (Auto) 0.09 K/uL (0-0.50) 03/22/22 09:39 Baso # (Auto) 0.04 K/uL (0-0.2) 03/22/22 09:39 Immature Gran # (Auto) 0.03 K/uL (0.00-0.02) H 03/22/22 09:39 POC Sodium 132 mmol/L (135-144) L 03/19/22 21:37 Sodium 135 mmol/L (136-145) L 03/22/22 09:39 POC Potassium 3.9 mmol/L (3.3-5.0) 03/19/22 21:37 Potassium 3.9 mmol/L (3.5-5.1) 03/22/22 09:39 POC Chloride 95 mmol/L (101-112) L 03/19/22 21:37 Chloride 101 mmol/L (98-107) 03/22/22 09:39 Carbon Dioxide 26 mmol/L (21-32) 03/22/22 09:39 POC Total CO2 24 mmol/L (24-31) 03/19/22 21:37 Anion Gap 8 (3-11) 03/22/22 09:39 POC Anion Gap 17.0 mmol/L (16-25) 03/19/22 21:37 POC BUN 29 mg/dl (7-18) H 03/19/22 21:37 BUN 19 mg/dl (6-23) 03/22/22 09:39 Creatinine 0.99 mg/dl (0.6-1.2) 03/22/22 09:39 POC Creatinine 2.0 mg/dl (0.6-1.3) H 03/19/22 21:37 Est Cr Clr Drug Dosing 32.5 ml/min 03/22/22 09:39 Est GFR ( Amer) 59.0 ml/min 03/22/22 09:39 Est GFR (Non-Af Amer) 50.9 ml/min 03/22/22 09:39 BUN/Creatinine Ratio 19.2 (10-20) 03/22/22 09:39 Glucose 99 mg/dl (70-99(Fasting)) 03/22/22 09:39 POC Glucose (other) 88 mg/dl (70-99) 03/19/22 21:37 Calcium 8.5 mg/dl (8.5-10.1) 03/22/22 09:39 POC Ioniz Calcium Jon 1.09 mmol/l (1.12-1.32) L 03/19/22 21:37 Magnesium 2.0 mg/dl (1.7-2.4) 03/19/22 21:35 Total Bilirubin 0.7 mg/dl (0.2-1.0) 03/19/22 21:35 AST 18 U/L (13-39) 03/19/22 21:35 ALT 13 U/L (7-52) 03/19/22 21:35 Alkaline Phosphatase 52 U/L (34-104) 03/19/22 21:35 Total Creatine Kinase 41 U/L (26-192) 03/19/22 21:35 Troponin I High Sens 5.7 pg/ml (0-14) 03/19/22 21:35 Total Protein 6.7 gm/dl (6.0-8.3) 03/19/22 21:35 Albumin 4.0 gm/dl (3.4-5.0) 03/19/22 21:35 Globulin 2.7 gm/dl (2.5-4.0) 03/19/22 21:35 Albumin/Globulin Ratio 1.5 (0.9-2) 03/19/22 21:35 Vitamin B12 139 pg/ml (180-914) L 03/20/22 15:27 Folate 7.41 ng/ml (>5.38) 03/20/22 15:27 TSH 4.140 uIu/ml (0.300-4.500) 03/19/22 21:35 Urine Color Yellow 03/20/22 01:54 Urine Appearance Cloudy (Clear) A 03/20/22 01:54 Urine pH 6.5 (4.5-7.5) 03/20/22 01:54 Ur Specific [place] 1.014 (1.000-1.030) 03/20/22 01:54 Urine Protein Negative (Negative) 03/20/22 01:54 Urine Glucose (UA) Negative (Negative) 03/20/22 01:54 Urine Ketones Trace (Negative) H 03/20/22 01:54 Urine Blood Negative (Negative) 03/20/22 01:54 Urine Nitrite Positive (Negative) A 03/20/22 01:54 Urine Bilirubin Negative (Negative) 03/20/22 01:54 Urine Urobilinogen Negative (Negative) 03/20/22 01:54 Ur Leukocyte Esterase 2+ (Negative) H 03/20/22 01:54 Urine WBC (Auto) >30 /hpf (0-5) H 03/20/22 01:54 Urine RBC (Auto) 0-4 /hpf (0-4) 03/20/22 01:54 U Hyaline Cast (Auto) 1-5 /lpf (0-5) 03/20/22 01:54 U Epithel Cells (Auto) >30 /lpf (0-5) H 03/20/22 01:54 Urine Bacteria (Auto) 4+ (Negative) H 03/20/22 01:54 Urine Opiates Screen Neg (Neg) 03/20/22 01:54 Ur Methadone, Qual Neg (Neg) 03/20/22 01:54 Urine Barbiturates Neg (Neg) 03/20/22 01:54 Ur Phencyclidine (PCP) Neg (Neg) 03/20/22 01:54 U Amphetamin/Meth Scrn Neg (Neg) 03/20/22 01:54 MDMA (Ecstasy) Screen Neg (Neg) 03/20/22 01:54 U Benzodiazepines Scrn Neg (Neg) 03/20/22 01:54 Ur Cocaine Metabolite Neg (Neg) 03/20/22 01:54 U Marijuana (THC) Screen Neg (Neg) 03/20/22 01:54 Ethyl Alcohol mg/dL 101.4 mg/dl (<10.0) H 03/20/22 02:15 SARS-CoV-2, RNA, NAAT NEGATIVE (NEGATIVE) 03/20/22 00:20 Blood Type A Positive 03/21/22 20:17 Antibody Screen NEGATIVE 03/21/22 20:[address] 03/19/22 21:32 CT cervical spine wo con CLINICAL HISTORY: ams TECHNIQUE: Multidetector row helical CT of the cervical spine was performed without administration of intravenous contrast. Coronal and sagittal reformations were obtained. Automated dose lowering techniques and/or adjustment according to patient size were utilized for this exam. Comparison: Comparison is made to CT cervical spine 11/30/2020 FINDINGS: No acute fractures or subluxations are identified. Degenerative changes are seen in the visualized spine. The alignment is normal. Biapical scarring is seen in the lungs. Incidentally noted is prominent cerumen in the bilateral external auditory canals. IMPRESSION: Degenerative changes without evidence of acute bony injury. ACT 112: Negative or not required by law. Electronically signed by: Baltazar Gastelum M.D. 03/19/2022 10:[address] 03/19/22 21:32 CT facial bones wo con CLINICAL HISTORY: ams TECHNIQUE: Multidetector row helical CT of the maxillofacial bones was performed without administration of intravenous contrast, and processed with bone and soft tissue algorithms. Coronal and sagittal reformations were obtained. Automated dose lowering techniques and/or adjustment according to patient size were utilized for this exam. Comparison: None available at the time of this dictation. FINDINGS: Nasal bones are normal. The mandible is intact. The temporomandibular joints are anatomically aligned. Pterygoid plates are intact. Zygomatic arches are intact. The globes are normal and symmetric, without proptosis, obvious disruption or lens dislocation. There is no orbital radiopaque foreign body. The orbital frost are intact. The retrobulbar fat is without evidence of disruption. Extraocular muscles are normal and symmetric. Optic nerve sheath complexes are normal in course and caliber. Sphenoid sinus opacification is seen. IMPRESSION: 1. No acute facial fracture. 2. Sphenoid sinus disease. 3. Cerumen in the bilateral external auditory canals. ACT 112: Negative or not required by law. Electronically signed by: Baltazar Gastelum M.D. 03/19/2022 10:[address] 03/19/22 21:32 CT head/brain wo con CLINICAL HISTORY: ams Technique: Contiguous axial CT images of the head were acquired from the base of the skull to the vertex without intravenous contrast administration. Images were viewed in brain, subdural and bone windows. Automated dose lowering techniques and/or adjustment according to patient size were utilized for this exam. Comparison: Comparison is made to CT head 11/30/2020 Findings: Areas of decreased attenuation are present in the periventricular and subcortical white matter bilaterally consistent with small vessel ischemic disease. Generalized cerebral atrophy with commensurate enlargement of the ventricles, sulci, and cisterns is also present. There is no acute intracranial hemorrhage or evidence of acute territorial infarction. No shift of the midline structures, mass effect, or extra-axial abnormalities are shown. Atherosclerotic calcifications are present in the intracranial segments of the internal carotid arteries. Focal encephalomalacia in the left MCA territory is unchanged. Imaged portions of the paranasal sinuses and mastoid air cells are clear. The orbits appear normal. There are no acute fractures of the calvaria. Soft tissue swelling is seen in the occiput. Impression: No acute intracranial hemorrhage or skull fractures. Scalp swelling is seen in the occiput. ACT 112: Negative or not required by law. Electronically signed by: Baltazar Gastelum M.D. 03/19/2022 10:06 PM Chest X-Ray 03/19/22 21:33 XR chest 1V portable CLINICAL HISTORY: weakness TECHNIQUE: Single frontal radiograph of the chest was obtained. Comparison: Comparison is made to chest radiograph 11/30/[address] thorax 09/13/2015 FINDINGS: No lines and tubes are seen. Calcified aortic knob is seen. The lungs are clear. No evidence of pleural effusion or pneumothorax. Degenerative changes are seen in the right greater than left shoulder joints. IMPRESSION: No acute chest disease. ACT 112: Negative or not required by law. Electronically signed by: Baltazar Gastelum M.D. 03/19/2022 10:00 PM Hip/Pelvis X-Ray 03/19/22 22:40 XR hip RT 2V w pelvis CLINICAL HISTORY: fall, pain COMPARISON: Pelvis radiograph November 30, 2020. FINDINGS: Note is made of an acute displaced right femoral neck fracture. No additional acute fractures are identified within the pelvis or hips. Sacroiliac joints and symphysis pubis are intact. Surgical clips and staple lines are incidentally noted. IMPRESSION: Acute displaced right femoral neck fracture. ACT 112: Negative or not required by law. Electronically signed by: Bryan Villalta M.D. 03/20/2022 7:16 AM Shoulder X-Ray 03/19/22 22:40 XR shoulder RT min 2V routine CLINICAL HISTORY: fall, pain COMPARISON: Right humerus radiographs December 02, 2019. FINDINGS: No acute fracture within the right shoulder is identified. There is elevation of the right humeral head with narrowing of the subacromial space. Moderate to severe degenerative changes of the right shoulder are present. IMPRESSION: 1. No acute fracture or dislocation within the right shoulder. 2. 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 ACT 112: Negative or not required by law. Electronically signed by: Bryan Villalta M.D. 03/20/2022 7:17 AM Pelvis X-Ray 03/22/22 15:09 SINGLE VIEW PELVIS CLINICAL HISTORY: Postoperative examination. FINDINGS: An AP, portable, supine view of the hips and lower pelvis is compared to study dated 03/19/2022. The skeletal structures are osteopenic. No acute fracture is identified. A right hip arthroplasty is in near anatomic alignment. Moderate arthritic change and joint space narrowing is seen in the left hip. Subcutaneous gas and soft tissue edema overlying the right hip are expected postoperative changes. Degenerative sclerosis is noted in the sacroiliac joints and pubic symphysis. A Nelson catheter is in place. There is atherosclerotic calcification of the femoral arteries. IMPRESSION: Expected postoperative findings status post right hip arthroplasty placement. No acute fracture is seen. Electronically signed by: Avelino Freitas M.D. 03/22/2022 5:00 PM Knee X-Ray 03/22/22 15:11 RIGHT KNEE 2 VIEWS CLINICAL HISTORY: Right knee pain and swelling. Bruising. Fall. FINDINGS: AP and crosstable lateral views of the right knee are compared to study dated 02/25/2013. The skeletal structures are osteopenic. No acute fracture seen. There is chronic posttraumatic deformity of the proximal fibular shaft. There is mild tricompartmental degenerative joint space narrowing. Chondrocalcinosis is noted in the medial and lateral compartments. There are tiny marginal osteophytes. A joint effusion is observed. There is prepatellar soft tissue swelling. There is atherosclerotic calcification of the popliteal artery. IMPRESSION: 1. Soft tissue swelling and joint effusion with no acute fracture seen. 2. There is chronic posttraumatic deformity of the proximal fibula. 3. Osteopenia with degenerative change and chondrocalcinosis as above. Electronically signed by: Avelino Freitas M.D. 03/22/2022 3:52 PM
--- NOTE | 2022-03-23 15:02 | Hospitalist Progress Note ---
Date of Service March 23, 2022 Assessment & Plan (1) Closed right hip fracture: Plan: Josiane Shannon is an 86-year-old female with past medical history of hypertension, CKD stage III, paroxysmal A. fib on Xarelto, hyperlipidemia, prior falls due to alcohol intoxication, iron deficiency anemia, urinary incontinence who presents due to a fall. Right hip displaced femoral neck fractureOR repair 03/22 Dr Simmons Patient does not remember and it was unwitnessed, patient has history of prior fall due to alcohol intoxication, alcohol levels elevated on admission CT head clear, no C-spine fracture repeat CT head on 03/23 due to newfound strabismus. Patient with alcohol intoxication, Regular diet with boost Restart Xarelto, for DVT prevention and history of atrial fibrillation Chronic alcohol use Patient drinks 2 glasses of wine every day, reports she has not had an alcohol free day in "a long time " Denies history of seizures, withdrawal, tremors but has not had an alcohol free day in some time If tremors, diaphoresis, or shakes develop switch to active protocol, will follow at risk protocol at this time B12 profoundly low, IM given x1 and oral supplementation started 03/22. 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 fib Continue metoprolol and verapamil Xarelto Hyperlipidemia Continue rosuvastatin Overactive bladder Continue Solifenacin DVT prophylaxis: Held pending surgery Diet: boost CODE STATUS: Full (2) Alcohol use: (3) Hypertension: (4) Chronic kidney disease, stage 3: (5) Chronic anticoagulation: (6) Paroxysmal atrial fibrillation: (7) Hyperlipidemia: (8) Fall: (9) SIADH (syndrome of inappropriate ADH production): Admission and Anticipated Discharge Date Admission Date: March 20, 2022 Subjective pt was doing well post operatively and was noticed to have some strabismus to the right eye on exam, no speech issues no focal weakness other that what is expected post operatively, she did have a fall and is on xarelto, initial Ct head was negative for injury, I spoke to son and strabismus was not noted by him( he lives with mother) and will re ct head. I did also phone Dr Gallegos office to ask if strabismus was old but the private equity associate would not give me information without a HIPPA release. Review of Systems Review of Systems: Mild distress and fatigue no headache, no visual changes, is noted to have some strabismus no speech or swallowing issues no chest pain, pressure or palpitations no shortness of breath, cough or wheezes no abdominal pain, nausea or vomiting, diarrhea or constipation no dysuria, hematuria or frequency minor right hip pain no back pain, CVA tenderness or radicular pain no bruising, bleeding or rashes no focal signs of weakness or numbness or altered sensation no complaints of anxiety or depression.. Physical Exam Physical Exam: The patient appeared well nourished and normally developed. Vital signs as documented. Head exam is normocephalic atraumatic PERRL however when the patient focuses with her left eye her right eye drifts laterally. This was repeated and recurrent Neck is without JVD, thyromegaly, or carotid bruits. Lungs are clear to auscultation, no focal loss of breath sounds Cardiac exam, Rhythm is regular.. No murmurs, rubs or gallops. Abdominal exam reveals normal bowel sounds, soft non tender, no masses Extremities are nonedematous and both pedal pulses are present Typical postoperative right hip discomfort Neurologic exam is alert and oriented, no focal loss of strength or sensation Skin is without bruises or rashes Psychologically is without concerns for anxiety or depression. Does have some mild memory impairment. Results & Data Results & Data ([facility]) Vital Signs (Past 12 Hours) Vital Signs Temp Pulse Resp BP BP Pulse Ox O2 Del Method 03/23/22 14:54 97.7 F 68 16 103/58 L 98 Room Air 03/23/22 13:13 92 03/23/22 12:23 97.9 F 75 16 105/60 92 Room Air 03/23/22 11:38 Room Air 03/23/22 07:15 97.9 F 64 16 129/76 99 Room Air 03/23/22 03:24 97.5 F L 64 18 117/60 100 Nasal Cannula O2 Flow Rate 03/23/22 14:54 03/23/22 13:13 03/23/22 12:23 03/23/22 11:38 03/23/22 07:15 03/23/22 03:24 2 PG Care Time/CCT Total # of Minutes Spent Total Time Spent with Patient: Total time spent is greater than 50% in coordination of care (as documented) at patient's floor/unit and/or counseling patient: Coding Level of Care Code 37962 Subseq Hosp Care Lvl 2 Diagnoses Closed right hip fracture S72.001A Alcohol use Z72.89 Hypertension I10 Hypertension type: essential hypertension Chronic kidney disease, stage 3 N18.30 Chronic kidney disease stage 3 subtype: unspecified whether 3a or 3b Chronic anticoagulation Z79.01 Paroxysmal atrial fibrillation I48.0 Hyperlipidemia E78.5 Fall W19.XXXA SIADH (syndrome of inappropriate ADH production) E22.2 (1) Hypertension Hypertension type: essential hypertension Qualified Code(s): I10 - Essential (primary) hypertension (2) Chronic kidney disease, stage 3 Chronic kidney disease stage 3 subtype: unspecified whether 3a or 3b Qualified Code(s): N18.30 - Chronic kidney disease, stage 3 unspecified
--- NOTE | 2022-03-23 15:42 | CT Scan Report ---
CT OF THE HEAD WITHOUT CONTRAST CLINICAL HISTORY: new strabismus post op eval for stroke COMPARISON STUDY: Head CT December 02, 2019 and March 19, 2022. CT DOSE: 537.48 mGy.cm TECHNIQUE: Helical axial images of the head were obtained without IV contrast. Automated exposure con trol was utilized for the study. A dose lowering technique was utilized adhering to the principles o f ALARA. FINDINGS: No acute intracranial hemorrhage, midline shift or mass effect is present. Ventricular syst em is stable. Basal cisterns are patent. There are no extra-axial collections. 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 The appearance of the brain is unchanged. There are no findings to suggest acu te dural sinus thrombosis or acute territorial infarct. White matter hypodensity suggests small vesse l disease. Sphenoid sinus mucosal thickening and secretions are noted. Posterior scalp contusion/lace ration is noted. There is no acute calvarial fracture. IMPRESSION: No acute intracranial findings. No change in appearance of the brain. 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 ACT 112: Negative or not required by law. Electronically signed by: Bryan Villalta M.D. 03/23/2022 3:40 PM
[2022-03-23] MEDS: RIVAROXABAN 15 MG TAB PO SCH (19:40)
[2022-03-24] MEDS: FUROSEMIDE 20 MG TAB PO SCH (08:08)
[2022-03-24] MEDS: CYANOCOBALAMIN 1000 MCG/ML VIAL IM SCH (08:08)
[2022-03-24] MEDS: METOPROLOL SUCC 50MG EXT REL TAB PO SCH (08:09)
[2022-03-24] MEDS: CYANOCOBALAMIN (B-12) 500 MCG TABLET PO SCH (08:09)
[2022-03-24] MEDS: THIAMINE HCL 100 MG TAB PO SCH (08:10)
[2022-03-24] MEDS: ROSUVASTATIN CALCIUM 5 MG TAB PO SCH (08:10)
[2022-03-24] MEDS: VERAPAMIL HCL 120 MG TABCR PO SCH (08:10)
[2022-03-24] MEDS: FOLIC ACID 1 MG TAB PO SCH (08:11)
[2022-03-24] MEDS: cefTRIAXone SODIUM 2,000 MG in DEXTROSE 5% 50 ML IV SCH (08:13)
--- NOTE | 2022-03-24 08:22 | Hospitalist Progress Note ---
Date of Service March 24, 2022 Assessment & Plan (1) Closed right hip fracture: Plan: Josiane Shannon is an 86-year-old female with past medical history of hypertension, CKD stage III, paroxysmal A. fib on Xarelto, hyperlipidemia, prior falls due to alcohol intoxication, iron deficiency anemia, urinary incontinence who presents due to a fall. Right hip displaced femoral neck fractureOR repair 03/22 Dr Simmons Patient does not remember and it was unwitnessed, patient has history of prior fall due to alcohol intoxication, alcohol levels elevated on admission CT head clear, no C-spine fracture repeat CT head on 03/23 due to newfound strabismus is also without change, encouraged son to follow up with eye doctor. Patient with alcohol intoxication, is on thiamine, no signs of withdrawal Regular diet with boost Restart Xarelto, for DVT prevention and history of atrial fibrillation Chronic alcohol use Patient drinks 2 glasses of wine every day, reports she has not had an alcohol free day in "a long time " Denies history of seizures, withdrawal, tremors but has not had an alcohol free day in some time If tremors, diaphoresis, or shakes develop switch to active protocol, will follow at risk protocol at this time B12 profoundly low, IM given x1 and oral supplementation started 03/22. 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 fib Continue metoprolol and verapamil Xarelto Hyperlipidemia Continue rosuvastatin Overactive bladder Continue Solifenacin DVT prophylaxis: resumed after surgery CODE STATUS: Full (2) Alcohol use: (3) Hypertension: (4) Chronic kidney disease, stage 3: (5) Chronic anticoagulation: (6) Paroxysmal atrial fibrillation: (7) Hyperlipidemia: (8) Fall: (9) SIADH (syndrome of inappropriate ADH production): Admission and Anticipated Discharge Date Admission Date: March 20, 2022 Subjective This 86-year-old female is doing well. She states her pain is well controlled p.o. pain medication. She denies chest pain, shortness of breath, fever, chills, sweats or numbness or tingling in the right lower extremity. Patient states that she has discussed inpatient rehab with case management's. It looks like she will not be able to go to [facility] until Sunday. Review of Systems Review of Systems: Mild distress and fatigue no headache, no visual changes, is noted to have some strabismus no speech or swallowing issues no chest pain, pressure or palpitations no shortness of breath, cough or wheezes no abdominal pain, nausea or vomiting, diarrhea or constipation no dysuria, hematuria or frequency minor right hip pain no back pain, CVA tenderness or radicular pain no bruising, bleeding or rashes no focal signs of weakness or numbness or altered sensation no complaints of anxiety or depression.. Physical Exam Physical Exam: The patient appeared well nourished and normally developed. Vital signs as documented. Head exam is normocephalic atraumatic PERRL however when the patient focuses with her left eye her right eye drifts laterally. This was repeated and recurrent Neck is without JVD, thyromegaly, or carotid bruits. Lungs are clear to auscultation, no focal loss of breath sounds Cardiac exam, Rhythm is regular.. No murmurs, rubs or gallops. Abdominal exam reveals normal bowel sounds, soft non tender, no masses Extremities are nonedematous and both pedal pulses are present Typical postoperative right hip discomfort Neurologic exam is alert and oriented, no focal loss of strength or sensation Skin is without bruises or rashes Psychologically is without concerns for anxiety or depression. Does have some mild memory impairment. Results & Data Results & Data ([facility]) Vital Signs (Past 12 Hours) Vital Signs Temp Pulse Resp BP Pulse Ox O2 Del Method 03/24/22 07:33 98.1 F 77 16 157/75 H 98 Room Air 03/23/22 21:19 98.1 F 74 16 119/69 93 Room Air PG Care Time/CCT Total # of Minutes Spent Total Time Spent with Patient: Total time spent is greater than 50% in coordination of care (as documented) at patient's floor/unit and/or counseling patient: Coding Level of Care Code 60115 Subseq Hosp Care Lvl 2 Diagnoses Closed right hip fracture S72.001A Alcohol use Z72.89 Hypertension I10 Hypertension type: essential hypertension Chronic kidney disease, stage 3 N18.30 Chronic kidney disease stage 3 subtype: unspecified whether 3a or 3b Chronic anticoagulation Z79.01 Paroxysmal atrial fibrillation I48.0 Hyperlipidemia E78.5 Fall W19.XXXA SIADH (syndrome of inappropriate ADH production) E22.2 (1) Chronic kidney disease, stage 3 Chronic kidney disease stage 3 subtype: unspecified whether 3a or 3b Qualified Code(s): N18.30 - Chronic kidney disease, stage 3 unspecified (2) Hypertension Hypertension type: essential hypertension Qualified Code(s): I10 - Essential (primary) hypertension
--- NOTE | 2022-03-24 10:11 | Orthopedic Progress Note ---
Date of Service March 24, 2022 Assessment & Plan (1) S/P hip hemiarthroplasty: Plan: Total hip precautions Weightbearing as tolerated with walker assistance Ice with easy wrap Abduction pillow use x6 weeks PT/OT Pain controlled p.o. medication DVT prophylaxis with Xarelto and LUZ stockings Discharge is pending internal medicine's discretion. Patient will follow-up in our clinic as scheduled on April 03 With questions contact our clinic at [phone] Admission and Anticipated Discharge Date Admission Date: March 20, 2022 Subjective This 86-year-old female is seen for her day 2 follow-up after undergoing a right hip hemiarthroplasty. Patient states she is doing well. She states her pain is well controlled p.o. pain medication. She denies chest pain, shortness of breath, fever, chills, sweats or numbness or tingling in the right lower extremity. Patient states that she has discussed inpatient rehab with case management's. It looks like she will not be able to go to [facility] until Sunday. Review of Systems Review of Systems: All systems reviewed & are unremarkable except as noted in Subjective Physical Exam Physical Exam: Right hip: Silverlon dressing is clean dry and intact. Logroll testing causes no pain. She is unable to perform an active straight leg raise test. She is able to actively dorsi and plantarflex her foot. Quad strength is 2+ out of 5. Patient continues to have some mild tenderness in the groin and experiences tensile pain with light passive internal hip rotation. Passive external rotation and flexion near 90 degrees causes no discomfort. She is neurovascularly intact in the right lower extremity. Results & Data ([facility]) Vital Signs (Past 12 Hours) Vital Signs Temp Pulse Resp BP Pulse Ox O2 Del Method 03/24/22 07:20 Room Air 03/24/22 07:33 36.7 C 77 16 157/75 H 98 Room Air Diagnostic Findings Laboratory Results WBC 7.12 K/ul (4.8-10.8) 03/22/22 09:39 RBC 3.13 M/uL (3.93-5.22) L 03/22/22 09:39 Hgb 10.8 g/dl (12.0-16.0) L 03/22/22 09:39 POC Hgb 12.9 g/dl (12.0-16.0) 03/19/22 21:37 Hct 31.7 % (34.1-44.9) L 03/22/22 09:39 POC Hct 38 % (37-47) 03/19/22 21:37 MCV 101.3 fL (80.0-100.0) H 03/22/22 09:39 MCH 34.5 pg (25.0-34.0) H 03/22/22 09:39 MCHC 34.1 g/dL (32.0-36.0) 03/22/22 09:39 RDW Std Deviation 43.8 fL (36.4-46.3) 03/22/22 09:39 RDW Coeff of Diana 11.9 % (11.5-14.5) 03/22/22 09:39 Plt Count 176 K/uL (130-400) 03/22/22 09:39 MPV 10.3 fL (9.4-12.3) 03/22/22 09:39 Immature Gran % (Auto) 0.4 % 03/22/22 09:39 Neut % (Auto) 77.7 % 03/22/22 09:39 Lymph % (Auto) 11.4 % 03/22/22 09:39 Bandera % (Auto) 8.6 % 03/22/22 09:39 Eos % (Auto) 1.3 % 03/22/22 09:39 Baso % (Auto) 0.6 % 03/22/22 09:39 Neut # (Auto) 5.54 K/uL (1.4-6.5) 03/22/22 09:39 Lymph # (Auto) 0.81 K/uL (1.2-3.4) L 03/22/22 09:39 Bandera # (Auto) 0.61 K/uL (0.24-0.82) 03/22/22 09:39 Eos # (Auto) 0.09 K/uL (0-0.50) 03/22/22 09:39 Baso # (Auto) 0.04 K/uL (0-0.2) 03/22/22 09:39 Immature Gran # (Auto) 0.03 K/uL (0.00-0.02) H 03/22/22 09:39 POC Sodium 132 mmol/L (135-144) L 03/19/22 21:37 Sodium 135 mmol/L (136-145) L 03/22/22 09:39 POC Potassium 3.9 mmol/L (3.3-5.0) 03/19/22 21:37 Potassium 3.9 mmol/L (3.5-5.1) 03/22/22 09:39 POC Chloride 95 mmol/L (101-112) L 03/19/22 21:37 Chloride 101 mmol/L (98-107) 03/22/22 09:39 Carbon Dioxide 26 mmol/L (21-32) 03/22/22 09:39 POC Total CO2 24 mmol/L (24-31) 03/19/22 21:37 Anion Gap 8 (3-11) 03/22/22 09:39 POC Anion Gap 17.0 mmol/L (16-25) 03/19/22 21:37 POC BUN 29 mg/dl (7-18) H 03/19/22 21:37 BUN 19 mg/dl (6-23) 03/22/22 09:39 Creatinine 0.99 mg/dl (0.6-1.2) 03/22/22 09:39 POC Creatinine 2.0 mg/dl (0.6-1.3) H 03/19/22 21:37 Est Cr Clr Drug Dosing 32.5 ml/min 03/22/22 09:39 Est GFR ( Amer) 59.0 ml/min 03/22/22 09:39 Est GFR (Non-Af Amer) 50.9 ml/min 03/22/22 09:39 BUN/Creatinine Ratio 19.2 (10-20) 03/22/22 09:39 Glucose 99 mg/dl (70-99(Fasting)) 03/22/22 09:39 POC Glucose (other) 88 mg/dl (70-99) 03/19/22 21:37 Calcium 8.5 mg/dl (8.5-10.1) 03/22/22 09:39 POC Ioniz Calcium Jon 1.09 mmol/l (1.12-1.32) L 03/19/22 21:37 Magnesium 2.0 mg/dl (1.7-2.4) 03/19/22 21:35 Total Bilirubin 0.7 mg/dl (0.2-1.0) 03/19/22 21:35 AST 18 U/L (13-39) 03/19/22 21:35 ALT 13 U/L (7-52) 03/19/22 21:35 Alkaline Phosphatase 52 U/L (34-104) 03/19/22 21:35 Total Creatine Kinase 41 U/L (26-192) 03/19/22 21:35 Troponin I High Sens 5.7 pg/ml (0-14) 03/19/22 21:35 Total Protein 6.7 gm/dl (6.0-8.3) 03/19/22 21:35 Albumin 4.0 gm/dl (3.4-5.0) 03/19/22 21:35 Globulin 2.7 gm/dl (2.5-4.0) 03/19/22 21:35 Albumin/Globulin Ratio 1.5 (0.9-2) 03/19/22 21:35 Vitamin B12 139 pg/ml (180-914) L 03/20/22 15:27 Folate 7.41 ng/ml (>5.38) 03/20/22 15:27 TSH 4.140 uIu/ml (0.300-4.500) 03/19/22 21:35 Urine Color Yellow 03/20/22 01:54 Urine Appearance Cloudy (Clear) A 03/20/22 01:54 Urine pH 6.5 (4.5-7.5) 03/20/22 01:54 Ur Specific Jonancy 1.014 (1.000-1.030) 03/20/22 01:54 Urine Protein Negative (Negative) 03/20/22 01:54 Urine Glucose (UA) Negative (Negative) 03/20/22 01:54 Urine Ketones Trace (Negative) H 03/20/22 01:54 Urine Blood Negative (Negative) 03/20/22 01:54 Urine Nitrite Positive (Negative) A 03/20/22 01:54 Urine Bilirubin Negative (Negative) 03/20/22 01:54 Urine Urobilinogen Negative (Negative) 03/20/22 01:54 Ur Leukocyte Esterase 2+ (Negative) H 03/20/22 01:54 Urine WBC (Auto) >30 /hpf (0-5) H 03/20/22 01:54 Urine RBC (Auto) 0-4 /hpf (0-4) 03/20/22 01:54 U Hyaline Cast (Auto) 1-5 /lpf (0-5) 03/20/22 01:54 U Epithel Cells (Auto) >30 /lpf (0-5) H 03/20/22 01:54 Urine Bacteria (Auto) 4+ (Negative) H 03/20/22 01:54 Urine Opiates Screen Neg (Neg) 03/20/22 01:54 Ur Methadone, Qual Neg (Neg) 03/20/22 01:54 Urine Barbiturates Neg (Neg) 03/20/22 01:54 Ur Phencyclidine (PCP) Neg (Neg) 03/20/22 01:54 U Amphetamin/Meth Scrn Neg (Neg) 03/20/22 01:54 MDMA (Ecstasy) Screen Neg (Neg) 03/20/22 01:54 U Benzodiazepines Scrn Neg (Neg) 03/20/22 01:54 Ur Cocaine Metabolite Neg (Neg) 03/20/22 01:54 U Marijuana (THC) Screen Neg (Neg) 03/20/22 01:54 Ethyl Alcohol mg/dL 101.4 mg/dl (<10.0) H 03/20/22 02:15 SARS-CoV-2, RNA, NAAT NEGATIVE (NEGATIVE) 03/20/22 00:20 Blood Type A Positive 03/21/22 20:17 Antibody Screen NEGATIVE 03/21/22 20:[address] 03/19/22 21:32 CT cervical spine wo con CLINICAL HISTORY: ams TECHNIQUE: Multidetector row helical CT of the cervical spine was performed without administration of intravenous contrast. Coronal and sagittal reformations were obtained. Automated dose lowering techniques and/or adjustment according to patient size were utilized for this exam. Comparison: Comparison is made to CT cervical spine 11/30/2020 FINDINGS: No acute fractures or subluxations are identified. Degenerative changes are seen in the visualized spine. The alignment is normal. Biapical scarring is seen in the lungs. Incidentally noted is prominent cerumen in the bilateral external auditory canals. IMPRESSION: Degenerative changes without evidence of acute bony injury. ACT 112: Negative or not required by law. Electronically signed by: Baltazar Gastelum M.D. 03/19/2022 10:[address] 03/19/22 21:32 CT facial bones wo con CLINICAL HISTORY: ams TECHNIQUE: Multidetector row helical CT of the maxillofacial bones was performed without administration of intravenous contrast, and processed with bone and soft tissue algorithms. Coronal and sagittal reformations were obtained. Automated dose lowering techniques and/or adjustment according to patient size were utilized for this exam. Comparison: None available at the time of this dictation. FINDINGS: Nasal bones are normal. The mandible is intact. The temporomandibular joints are anatomically aligned. Pterygoid plates are intact. Zygomatic arches are intact. The globes are normal and symmetric, without proptosis, obvious disruption or lens dislocation. There is no orbital radiopaque foreign body. The orbital frost are intact. The retrobulbar fat is without evidence of disruption. Extraocular muscles are normal and symmetric. Optic nerve sheath complexes are normal in course and caliber. Sphenoid sinus opacification is seen. IMPRESSION: 1. No acute facial fracture. 2. Sphenoid sinus disease. 3. Cerumen in the bilateral external auditory canals. ACT 112: Negative or not required by law. Electronically signed by: Baltazar Gastelum M.D. 03/19/2022 10:14 PM Chest X-Ray 03/19/22 21:33 XR chest 1V portable CLINICAL HISTORY: weakness TECHNIQUE: Single frontal radiograph of the chest was obtained. Comparison: Comparison is made to chest radiograph 11/30/[address] thorax 09/13/2015 FINDINGS: No lines and tubes are seen. Calcified aortic knob is seen. The lungs are clear. No evidence of pleural effusion or pneumothorax. Degenerative changes are seen in the right greater than left shoulder joints. IMPRESSION: No acute chest disease. ACT 112: Negative or not required by law. Electronically signed by: Baltazar Gastelum M.D. 03/19/2022 10:00 PM Hip/Pelvis X-Ray 03/19/22 22:40 XR hip RT 2V w pelvis CLINICAL HISTORY: fall, pain COMPARISON: Pelvis radiograph November 30, 2020. FINDINGS: Note is made of an acute displaced right femoral neck fracture. No additional acute fractures are identified within the pelvis or hips. Sacroiliac joints and symphysis pubis are intact. Surgical clips and staple lines are incidentally noted. IMPRESSION: Acute displaced right femoral neck fracture. ACT 112: Negative or not required by law. Electronically signed by: Bryan Villalta M.D. 03/20/2022 7:16 AM Shoulder X-Ray 03/19/22 22:40 XR shoulder RT min 2V routine CLINICAL HISTORY: fall, pain COMPARISON: Right humerus radiographs December 02, 2019. FINDINGS: No acute fracture within the right shoulder is identified. There is elevation of the right humeral head with narrowing of the subacromial space. Moderate to severe degenerative changes of the right shoulder are present. IMPRESSION: 1. No acute fracture or dislocation within the right shoulder. 2. 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 ACT 112: Negative or not required by law. Electronically signed by: Bryan Villalta M.D. 03/20/2022 7:17 AM Pelvis X-Ray 03/22/22 15:09 SINGLE VIEW PELVIS CLINICAL HISTORY: Postoperative examination. FINDINGS: An AP, portable, supine view of the hips and lower pelvis is compared to study dated 03/19/2022. The skeletal structures are osteopenic. No acute fracture is identified. A right hip arthroplasty is in near anatomic alignment. Moderate arthritic change and joint space narrowing is seen in the left hip. Subcutaneous gas and soft tissue edema overlying the right hip are expected postoperative changes. Degenerative sclerosis is noted in the sacroiliac joints and pubic symphysis. A Nelson catheter is in place. There is atherosclerotic calcification of the femoral arteries. IMPRESSION: Expected postoperative findings status post right hip arthroplasty placement. No acute fracture is seen. Electronically signed by: Avelino Freitas M.D. 03/22/2022 5:00 PM Knee X-Ray 03/22/22 15:11 RIGHT KNEE 2 VIEWS CLINICAL HISTORY: Right knee pain and swelling. Bruising. Fall. FINDINGS: AP and crosstable lateral views of the right knee are compared to study dated 02/25/2013. The skeletal structures are osteopenic. No acute fracture seen. There is chronic posttraumatic deformity of the proximal fibular shaft. There is mild tricompartmental degenerative joint space narrowing. Chondrocalcinosis is noted in the medial and lateral compartments. There are tiny marginal osteophytes. A joint effusion is observed. There is prepatellar soft tissue swelling. There is atherosclerotic calcification of the popliteal artery. IMPRESSION: 1. Soft tissue swelling and joint effusion with no acute fracture seen. 2. There is chronic posttraumatic deformity of the proximal fibula. 3. Osteopenia with degenerative change and chondrocalcinosis as above. Electronically signed by: Avelino Freitas M.D. 03/22/2022 3:[address] 03/23/22 14:57 CT OF THE HEAD WITHOUT CONTRAST CLINICAL HISTORY: new strabismus post op eval for stroke COMPARISON STUDY: Head CT December 02, 2019 and March 19, 2022. CT DOSE: 537.48 mGy.cm TECHNIQUE: Helical axial images of the head were obtained without IV contrast. Automated exposure control was utilized for the study. A dose lowering technique was utilized adhering to the principles of ALARA. FINDINGS: No acute intracranial hemorrhage, midline shift or mass effect is present. Ventricular system is stable. Basal cisterns are patent. There are no extra-axial collections. 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 The appearance of the brain is unchanged. There are no findings to suggest acute dural sinus thrombosis or acute territorial infarct. White matter hypodensity suggests small vessel disease. Sphenoid sinus mucosal thickening and secretions are noted. Posterior scalp contusion/laceration is noted. There is no acute calvarial fracture. IMPRESSION: No acute intracranial findings. No change in appearance of the brain. 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 ACT 112: Negative or not required by law. Electronically signed by: Bryan Villalta M.D. 03/23/2022 3:40 PM
[2022-03-24] MEDS: RIVAROXABAN 15 MG TAB PO SCH (17:14)
[2022-03-25] MEDS: traMADol HCL 50 MG TABLET PO PRN ×3 (05:21→14:03)
[2022-03-25 08:08] LABS: Hematocrit (blood only) 25.5 % (34.1-44.9); Hemoglobin 8.4 g/dl (12.0-16.0); Mean Corpuscular Hemoglobin 34.4 pg (25.0-34.0); Mean Corpuscular Hgb Conc 32.9 g/dL (32.0-36.0); Mean Corpuscular Volume 104.5 fL (80.0-100.0); Mean Platelet Volume 10.3 fL (9.4-12.3); Platelet Count 234 K/uL (130-400); RDW Coefficient of Variation 11.9 % (11.5-14.5); RDW Standard Deviation 45.4 fL (36.4-46.3); Red Blood Count 2.44 M/uL (3.93-5.22)
[2022-03-25 08:47] LABS: BUN Creatinine Ratio 36.5 (10-20); Calcium 8.3 mg/dl (8.5-10.1); Creatinine Clr Calc Pharmacy 23.5 ml/min; Est GFR (African American) 39.8 ml/min; Est GFR (Non-African American) 34.4 ml/min; Potassium 3.5 mmol/L (3.5-5.1)
[2022-03-25] MEDS ORDERED: SODIUM CHLORIDE 0.9% 1000ML 500 ML IV ONE (08:57)
[2022-03-25] MEDS: FOLIC ACID 1 MG TAB PO SCH (09:00)
[2022-03-25] MEDS: THIAMINE HCL 100 MG TAB PO SCH (09:00)
[2022-03-25] MEDS: METOPROLOL SUCC 50MG EXT REL TAB PO SCH (09:00)
[2022-03-25] MEDS: VERAPAMIL HCL 120 MG TABCR PO SCH (09:00)
--- NOTE | 2022-03-25 09:00 | Hospitalist Progress Note ---
Date of Service March 25, 2022 Assessment & Plan (1) Closed right hip fracture: Plan: Josiane Shannon is an 86-year-old female with past medical history of hypertension, CKD stage III, paroxysmal A. fib on Xarelto, hyperlipidemia, prior falls due to alcohol intoxication, iron deficiency anemia, urinary incontinence who presents due to a fall. Right hip displaced femoral neck fractureOR repair 03/22 Dr Simmons Patient does not remember and it was unwitnessed, patient has history of prior fall due to alcohol intoxication, alcohol levels elevated on admission CT head clear, no C-spine fracture repeat CT head on 03/23 due to newfound strabismus is also without change, encouraged son to follow up with eye doctor. Patient with alcohol intoxication, is on thiamine, no signs of withdrawal -has acute blood loss anemia post op and some tachycardia, could be from anemia always concern for alcohol withdrawal but not in exact time frame completed 5 days of treatment for klebsiella uti poa Regular diet with boost Xarelto, for DVT prevention and history of atrial fibrillation Chronic alcohol use Patient drinks 2 glasses of wine every day, reports she has not had an alcohol free day in "a long time " B12 profoundly low, IM given x1 and oral supplementation started 03/22. Continue thiamine/folic acid JOSE on CKD stage III Baseline seems to be around 1.4-1.5 Admission creatinine consistent with baseline, -will give fluid bolus as is tachycardic then additional one liter Monitor kidney function Hyponatremia in the setting of SIADH resolved Hypertension/A. fib Continue metoprolol and verapamil, brief tachycardia resolved with fluid bolus Xarelto Hyperlipidemia Continue rosuvastatin -had bacteria on presentation without symptoms, but now with lower bp will start antibiotics for klebsiella uti poa Overactive bladder Continue Solifenacin DVT prophylaxis: resumed after surgery CODE STATUS: Full (2) Alcohol use: (3) Hypertension: (4) Chronic kidney disease, stage 3: (5) Chronic anticoagulation: (6) Paroxysmal atrial fibrillation: (7) Hyperlipidemia: (8) Fall: (9) SIADH (syndrome of inappropriate ADH production): Admission and Anticipated Discharge Date Admission Date: March 20, 2022 Subjective pt is about her usual state, awake and alert, no complaints, does recall some dizziness with PT this am Review of Systems Review of Systems: Mild distress and fatigue no headache, no visual changes, is noted to have some strabismus no speech or swallowing issues no chest pain, pressure or palpitations no shortness of breath, cough or wheezes no abdominal pain, nausea or vomiting, diarrhea or constipation no dysuria, hematuria or frequency minor right hip pain no back pain, CVA tenderness or radicular pain no bruising, bleeding or rashes no focal signs of weakness or numbness or altered sensation no complaints of anxiety or depression.. Physical Exam Physical Exam: The patient appeared well nourished and normally developed. Vital signs as documented. Head exam is normocephalic atraumatic PERRL however when the patient focuses with her left eye her right eye drifts la terally. This was repeated and recurrent Neck is without JVD, thyromegaly, or carotid bruits. Lungs are clear to auscultation, no focal loss of breath sounds Cardiac exam, Rhythm is regular.. No murmurs, rubs or gallops. Abdominal exam reveals normal bowel sounds, soft non tender, no masses Extremities are nonedematous and both pedal pulses are present Typical postoperative right hip discomfort Neurologic exam is alert and oriented, no focal loss of strength or sensation Skin is without bruises or rashes Psychologically is without concerns for anxiety or depression. Does have some mild memory impairment. Results & Data Results & Data ([facility]) Vital Signs (Past 12 Hours) Vital Signs Temp Pulse Resp BP BP Pulse Ox O2 Del Method 03/25/22 06:52 97.7 F 105 H 20 101/67 98 Room Air 03/24/22 23:00 98.2 F 93 H 20 104/62 96 Room Air PG Care Time/CCT Total # of Minutes Spent Total Time Spent with Patient: Total time spent is greater than 50% in coordination of care (as documented) at patient's floor/unit and/or counseling patient: Coding Level of Care Code 35851 Subseq Hosp Care Lvl 3 Diagnoses Closed right hip fracture S72.001A Alcohol use Z72.89 Hypertension I10 Hypertension type: essential hypertension Chronic kidney disease, stage 3 N18.30 Chronic kidney disease stage 3 subtype: unspecified whether 3a or 3b Chronic anticoagulation Z79.01 Paroxysmal atrial fibrillation I48.0 Hyperlipidemia E78.5 Fall W19.XXXA SIADH (syndrome of inappropriate ADH production) E22.2 (1) Chronic kidney disease, stage 3 Chronic kidney disease stage 3 subtype: unspecified whether 3a or 3b Qualified Code(s): N18.30 - Chronic kidney disease, stage 3 unspecified (2) Hypertension Hypertension type: essential hypertension Qualified Code(s): I10 - Essential (primary) hypertension
[2022-03-25] MEDS: CYANOCOBALAMIN 1000 MCG/ML VIAL IM SCH (09:01)
[2022-03-25] MEDS: CYANOCOBALAMIN (B-12) 500 MCG TABLET PO SCH (09:01)
[2022-03-25] MEDS ORDERED: cefTRIAXone SODIUM 2,000 MG in DEXTROSE 5% 50 ML IV SCH (12:00)
[2022-03-25] MEDS ORDERED: SODIUM CHLORIDE 0.9% 1000ML 1,000 ML IV SCH (14:30)
[2022-03-25] MEDS ORDERED: FAMOTIDINE 20 MG in SYRINGE 3 ML IV ONE (14:34)
[2022-03-25] MEDS ORDERED: SODIUM CHLORIDE 0.9% 1000ML 250 ML IV ONE (15:08)
[2022-03-25] MEDS ORDERED: ACETAMINOPHEN 500 MG TAB PO PRN (15:08)
[2022-03-25] MEDS ORDERED: FAMOTIDINE 20 MG in SYRINGE 3 ML IV SCH (21:00)
[2022-03-26] MEDS: CYANOCOBALAMIN (B-12) 500 MCG TABLET PO SCH (08:20)
[2022-03-26] MEDS: CYANOCOBALAMIN 1000 MCG/ML VIAL IM SCH (08:20)
[2022-03-26] MEDS: THIAMINE HCL 100 MG TAB PO SCH (08:20)
[2022-03-26] MEDS: VERAPAMIL HCL 120 MG TABCR PO SCH (08:20)
[2022-03-26] MEDS: FOLIC ACID 1 MG TAB PO SCH (08:20)
[2022-03-26 08:24] LABS: Hematocrit (blood only) 21.6 % (34.1-44.9); Hemoglobin 6.9 g/dl (12.0-16.0); Mean Corpuscular Hemoglobin 33.8 pg (25.0-34.0); Mean Corpuscular Hgb Conc 31.9 g/dL (32.0-36.0); Mean Corpuscular Volume 105.9 fL (80.0-100.0); Mean Platelet Volume 9.7 fL (9.4-12.3); Platelet Count 212 K/uL (130-400); Red Blood Count 2.04 M/uL (3.93-5.22); White Blood Count 8.67 K/ul (4.8-10.8)
[2022-03-26] MEDS ORDERED: SODIUM CHLORIDE 0.9% 250 ML IV PRN (08:28)
[2022-03-26 08:46] LABS: BUN Creatinine Ratio 34.2 (10-20); Calcium 8.1 mg/dl (8.5-10.1); Est GFR (African American) 32.8 ml/min; Est GFR (Non-African American) 28.3 ml/min; Potassium 3.9 mmol/L (3.5-5.1)
[2022-03-26] MEDS: PANTOprazole 40 MG in SYRINGE 0 ML IV SCH ×2 (10:13→20:11)
[2022-03-26] MEDS: METOPROLOL SUCC 25MG EXT REL TAB PO SCH (10:13)
--- NOTE | 2022-03-26 14:43 | Electrocardiogram Report ---
Test Reason : Blood Pressure : / mmHG Vent. Rate : 094 BPM Atrial Rate : 375 BPM P-R Int : 000 ms QRS Dur : 088 ms QT Int : 396 ms P-R-T Axes : 000 004 -43 degrees QTc Int : 495 ms Atrial fibrillation Inferior infarct , age undetermined Poor R wave progression, consider anterior NH vs. lead placement vs. LVH Nonspecific T wave abnormality Abnormal ECG When compared with ECG of 19-MAR-2022 21:50, Atrial fibrillation has replaced Sinus rhythm QT has lengthened Confirmed by Tacos Rachel ([id number]) on 03/26/2022 2:42:44 PM Referred By: REFERRED SELF Confirmed By:Tacos Rachel
--- NOTE | 2022-03-26 18:33 | Hospitalist Progress Note ---
Date of Service March 26, 2022 Assessment & Plan (1) Closed right hip fracture: Plan: Josiane Shannon is an 86-year-old female with past medical history of hypertension, CKD stage III, paroxysmal A. fib on Xarelto, hyperlipidemia, prior falls due to alcohol intoxication, iron deficiency anemia, urinary incontinence who presents due to a fall. Right hip displaced femoral neck fractureOR repair 03/22 Dr Simmons Patient does not remember and it was unwitnessed, patient has history of prior fall due to alcohol intoxication, alcohol levels elevated on admission CT head clear, no C-spine fracture repeat CT head on 03/23 due to newfound strabismus is also without change, encouraged son to follow up with eye doctor. Patient with alcohol intoxication, is on thiamine, no signs of withdrawal -has acute blood loss anemia post op and some tachycardia, hgb fell to 6.9 and 2 u prbc ordered, will check CT of abd/pelvis to eval for Retroperitoneal bleed as clinically the hip does not seem to be with large hematoma and no melena in ostomy, this will help guage retart of VTE prevention, on ppi at this time completed 5 days of treatment for klebsiella uti poa Regular diet with boost Xarelto on hold , for DVT prevention and history of atrial fibrillation Chronic alcohol use Patient drinks 2 glasses of wine every day, reports she has not had an alcohol free day in "a long time " B12 profoundly low, IM given x1 and oral supplementation started 03/22. Continue thiamine/folic acid JOSE on CKD stage III Baseline seems to be around 1.4-1.5 Admission creatinine consistent with baseline, -did give fluid bolus as is tachycardic then additional one liter Monitor kidney function Hyponatremia in the setting of SIADH resolved Hypertension/A. fib Continue metoprolol and verapamil, brief tachycardia resolved with fluid bolus Xarelto on hold Hyperlipidemia Continue rosuvastatin -had bacteria on presentation without symptoms, but now with lower bp will start antibiotics for klebsiella uti poa Overactive bladder Continue Solifenacin DVT prophylaxis: resumed after surgery CODE STATUS: Full (2) Alcohol use: (3) Hypertension: (4) Chronic kidney disease, stage 3: (5) Chronic anticoagulation: (6) Paroxysmal atrial fibrillation: (7) Hyperlipidemia: (8) Fall: (9) SIADH (syndrome of inappropriate ADH production): Admission and Anticipated Discharge Date Admission Date: March 20, 2022 Subjective pt is about her usual state, awake and alert, no complaints, does recall some dizziness with PT when anemic, is having transfusion 03/27 hip site does not show hematoma and ostomy without significant black stools, also has jose, will check CT for retroperitoneal bleed before restarting anticoagulation Review of Systems Review of Systems: Mild distress and fatigue no headache, no visual changes, is noted to have some strabismus no speech or swallowing issues no chest pain, pressure or palpitations no shortness of breath, cough or wheezes no abdominal pain, nausea or vomiting, diarrhea or constipation no dysuria, hematuria or frequency minor right hip pain no back pain, CVA tenderness or radicular pain no bruising, bleeding or rashes no focal signs of weakness or numbness or altered sensation no complaints of anxiety or depression.. Physical Exam Physical Exam: The patient appeared well nourished and normally developed. Vital signs as documented. Head exam is normocephalic atraumatic PERRL however when the patient focuses with her left eye her right eye drifts laterally. This was repeated and recurrent Neck is without JVD, thyromegaly, or carotid bruits. Lungs are clear to auscultation, no focal loss of breath sounds Cardiac exam, Rhythm is regular.. No murmurs, rubs or gallops. Abdominal exam reveals normal bowel sounds, soft non tender, no masses Extremities are nonedematous and both pedal pulses are present Typical postoperative right hip discomfort Neurologic exam is alert and oriented, no focal loss of strength or sensation Skin is without bruises or rashes Psychologically is without concerns for anxiety or depression. Does have some mild memory impairment. Results & Data Results & Data ([facility]) Vital Signs (Past 12 Hours) Vital Signs Temp Pulse Pulse Resp BP BP Pulse Ox 03/26/22 17:25 97.7 F 66 18 110/62 97 03/26/22 17:53 98.2 F 58 L 18 152/71 H 98 03/26/22 15:55 98.1 F 55 L 20 110/65 100 03/26/22 16:25 55 L 97 03/26/22 16:23 98.1 F 20 106/62 03/26/22 15:39 98.1 F 55 L 18 97/52 L 94 03/26/22 15:22 97.9 F 57 L 18 97/59 L 97 03/26/22 14:00 97.9 F 60 20 113/61 96 03/26/22 13:15 70 95 03/26/22 12:45 97.7 F 20 127/66 03/26/22 12:15 97.5 F L 18 117/61 03/26/22 11:45 98.2 F 74 20 134/67 99 03/26/22 11:15 98.6 F 70 18 123/64 96 03/26/22 11:00 97.9 F 64 18 103/65 94 03/26/22 10:37 98.2 F 71 18 118/74 95 03/26/22 07:23 98.4 F 67 14 104/62 94 O2 Del Method 03/26/22 17:25 03/26/22 17:53 03/26/22 15:55 03/26/22 16:25 Room Air 03/26/22 16:23 03/26/22 15:39 03/26/22 15:22 03/26/22 14:00 Room Air 03/26/22 13:15 Room Air 03/26/22 12:45 03/26/22 12:15 03/26/22 11:45 03/26/22 11:15 03/26/22 11:00 03/26/22 10:37 03/26/22 07:23 Room Air PG Care Time/CCT Total # of Minutes Spent Total Time Spent with Patient: Total time spent is greater than 50% in coordination of care (as documented) at patient's floor/unit and/or counseling patient: Coding Level of Care Code 24286 Subseq Hosp Care Lvl 3 Diagnoses Closed right hip fracture S72.001A Alcohol use Z72.89 Hypertension I10 Hypertension type: essential hypertension Chronic kidney disease, stage 3 N18.30 Chronic kidney disease stage 3 subtype: unspecified whether 3a or 3b Chronic anticoagulation Z79.01 Paroxysmal atrial fibrillation I48.0 Hyperlipidemia E78.5 Fall W19.XXXA SIADH (syndrome of inappropriate ADH production) E22.2 (1) Hypertension Hypertension type: essential hypertension Qualified Code(s): I10 - Essential (primary) hypertension (2) Chronic kidney disease, stage 3 Chronic kidney disease stage 3 subtype: unspecified whether 3a or 3b Qualified Code(s): N18.30 - Chronic kidney disease, stage 3 unspecified
--- NOTE | 2022-03-27 08:33 | CT Scan Report ---
CT OF THE ABDOMEN AND PELVIS WITHOUT CONTRAST CLINICAL HISTORY: Evaluate for retroperitoneal bleed. Recent right hip arthroplasty. COMPARISON STUDY: CT of the pelvis January 24, 2016. CT of the abdomen pelvis January 14, 2016. TECHNIQUE: Axial images of the abdomen and pelvis were obtained without IV contrast. Images were revi ewed in the axial, sagittal, and coronal planes. Automated exposure control was utilized for the calvin dy. A dose lowering technique was utilized adhering to the principles of ALARA. FINDINGS: Small left and trace right pleural fusions are noted. There is segmental left lower lobe at electasis. Evaluation of the abdomen and pelvis is suboptimal on this unenhanced examination. No pneu matosis, free air or portal venous gas is present. There are gallstones within the gallbladder. No ev idence for acute cholecystitis. Unenhanced images of the liver, spleen, adrenal glands and pancreas a re unremarkable. There is a cyst within the left renal sinus. No evidence for a bowel obstruction. No te is made of a descending colostomy with parastomal hernia. Chronic diverticulosis noted without isaias dence for acute diverticulitis. Mild presacral stranding is likely chronic. There is no lymphadenopat hy. Right hip arthroplasty is intact. No periprosthetic fracture is noted. There are no unexpected ra diopaque foreign bodies. Small amount of gas within the operative bed is expected. There is also flui d within the operative bed. A small amount of acute intramuscular hemorrhage within the right gluteal musculature is noted. There is also a small amount of suspected hemorrhage within the right piriform is muscle. Streak artifact from the right hip arthroplasty makes evaluation difficult. The largest gl uteal hematoma measures 4.3 x 1.4 cm. No retroperitoneal hematoma. IMPRESSION: 1. Small amount of acute intramuscular hemorrhage within the right gluteal and piriformis muscles. No retroperitoneal hematoma. This finding will be called/faxed to ordering provider at time of dictatio n. 2. Postoperative findings consistent with recent total right hip arthroplasty. Hardware intact. 3. 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 No resultant ginette l obstruction. 4. Anasarca. 5. Small left and trace right pleural effusions. Subsegmental left lower lobe atelectasis. 6. Cholelithiasis. ACT 112: Negative or not required by law. Electronically signed by: Bryan Villalta M.D. 03/27/2022 8:31 AM
[2022-03-27 08:43] LABS: Hematocrit (blood only) 30.4 % (34.1-44.9); Hemoglobin 10.2 g/dl (12.0-16.0); Mean Corpuscular Hemoglobin 30.4 pg (25.0-34.0); Mean Corpuscular Hgb Conc 33.6 g/dL (32.0-36.0); Mean Corpuscular Volume 90.7 fL (80.0-100.0); Nucleated RBC # (auto) 0.08 K/uL (0-0); Nucleated RBC % (auto) 0.9 %; Platelet Count 219 K/uL (130-400); Red Blood Count 3.35 M/uL (3.93-5.22); White Blood Count 8.59 K/ul (4.8-10.8)
[2022-03-27 09:05] LABS: BUN Creatinine Ratio 34.2 (10-20); Calcium 8.1 mg/dl (8.5-10.1); Est GFR (African American) 36.9 ml/min; Est GFR (Non-African American) 31.8 ml/min; Potassium 3.7 mmol/L (3.5-5.1)
[2022-03-27] MEDS: THIAMINE HCL 100 MG TAB PO SCH (09:20)
[2022-03-27] MEDS: PANTOprazole 40 MG in SYRINGE 0 ML IV SCH (09:20)
[2022-03-27] MEDS: VERAPAMIL HCL 120 MG TABCR PO SCH (09:20)
[2022-03-27] MEDS: FOLIC ACID 1 MG TAB PO SCH (09:21)
[2022-03-27] MEDS: CYANOCOBALAMIN (B-12) 500 MCG TABLET PO SCH (09:21)
[2022-03-27] MEDS: METOPROLOL SUCC 25MG EXT REL TAB PO SCH (09:21)
[2022-03-27] MEDS: CYANOCOBALAMIN 1000 MCG/ML VIAL IM SCH (09:31)
--- NOTE | 2022-03-27 17:29 | Discharge Summary ---
Date of Service March 27, 2022 Admission HPI Per Admitting Provider Josiane Shannon is an 86-year-old female with past medical history of hypertension, CKD stage III, paroxysmal A. fib on Xarelto, hyperlipidemia, prior falls due to alcohol intoxication, iron deficiency anemia, urinary incontinence who presents due to a fall. Patient seen in room with no accompanying family member. All information gathered from patient and chart review. Patient arrived via ambulance due to an unwitnessed fall. She was reportedly found a few moments later by her son. The patient states she does not remember falling and does not recall many details about being brought to the hospital when asked directly if she was brought by ambulance she replies "I think so". The patient was felt to have blood on the back of her head. She states she has some generalized achiness, as well as right hip pain with movement. Also reports some right shoulder pain. Denies headache at this time. No nausea, vomiting, dizziness, chest pain, palpitations, shortness of breath, fever, chills, weakness, numbness, tingling. Work-up in the ED significant for hyponatremia to 132, creatinine of 1.52, elevated anion gap. Hip/pelvic x-ray consistent with right hip fracture. Shoulder x-ray without acute fractures. CT head showing no acute intracranial hemorrhage or skull fractures, scalp swelling seen in the occiput. CT cervical spine without acute fracture. Face CT showing sphenoid sinus disease. Chest x- ray negative. Received NSS 1 L bolus and half liter bolus in ED as well as fentanyl 50 mcg IV x1, Tdap vaccination. Principal Diagnosis mechanical fall right hip fracture with repair 03/22 with right cemented hemiarthroplasty acute blood loss anemia s/p transfusion 2 u prbc small gluteal hematoma alcohol abuse Discharge Exam The patient appeared stable Vital signs as documented. Lungs are clear to auscultation and appear unlabored Cardiac exam, Rhythm is regular.. No murmurs, rubs or gallops. Abdominal exam reveals normal bowel sounds, soft non tender, no masses Extremities are nonedematous and both pedal pulses are normal. Neurologic exam is alert and oriented, no focal loss of strength or sensation Skin is without bruises or rashes Psychologically is without concerns for anxiety or depression. Discharge Data Allergies Allergy/AdvReac Type Severity Reaction Status Date / Time shrimp Allergy Intermediate BREAKS OUT Verified 03/19/22 23:10 IN HIVES Consultations 03/20/22 00:07 ED Decision to Admit Stat 03/20/22 00:45 Consult Orthopedic Surgery Routine Procedures Performed Operation Date: 03/22/22 07:00 Actual Procedures p Right Cemented Hip Hemidarthroplasty(Right) - Pedro Simmons MD Ordered Studies 03/19/22 21:32 CT cervical spine wo con Stat CT facial bones wo con Stat CT head/brain wo con Stat 03/23/22 14:57 CT head/brain wo con Routine 03/26/22 18:33 CT abd pelvis wo con Routine Hospital Course (1) Closed right hip fracture: Josiane Shannon is an 86-year-old female with past medical history of hypertension, CKD stage III, paroxysmal A. fib on Xarelto, hyperlipidemia, prior falls due to alcohol intoxication, iron deficiency anemia, urinary incontinence who presents due to a fall. Right hip displaced femoral neck fracture OR repair 03/22 Dr Simmons Patient does not remember and it was unwitnessed, patient has history of prior fall due to alcohol intoxication, alcohol levels elevated on admission CT head clear, no C-spine fracture repeat CT head on 03/23 due to newfound strabismus is also without change, encouraged son to follow up with eye doctor. Patient with alcohol intoxication, is on thiamine, during hospital stay had no signs of withdrawal -has acute blood loss anemia post op and some tachycardia, hgb fell to 6.9 and 2 u prbc ordered, will check CT of abd/pelvis to eval for Retroperitoneal bleed as clinically the hip does not seem to be with large hematoma and no melena in ostomy, small hematoma in gluteus and piriformis on the right, will have aspirin for one week and if stable will consider return to xarelto completed 5 days of treatment for klebsiella uti poa Regular diet with boost Xarelto on hold , for DVT prevention and history of atrial fibrillation will start with bid aspirin Chronic alcohol use Patient drinks 2 glasses of wine every day, reports she has not had an alcohol free day in "a long time " B12 profoundly low, IM given x1 and oral supplementation started 03/22. Continue thiamine/folic acid JOSE on CKD stage III Baseline seems to be around 1.4-1.5 Admission creatinine consistent with baseline, -did give fluid bolus as is tachycardic then additional one liter -stable ckd Hyponatremia in the setting of SIADH resolved Hypertension/A. fib Continue metoprolol and verapamil, brief tachycardia resolved with fluid bolus Xarelto on hold Hyperlipidemia Continue rosuvastatin -had bacteria on presentation without symptoms, but completed antibiotics for klebsiella uti poa Overactive bladder Continue Solifenacin DVT prophylaxis: resumed after surgery CODE STATUS: Full (2) Alcohol use: (3) Hypertension: (4) Chronic kidney disease, stage 3: (5) Chronic anticoagulation: (6) Paroxysmal atrial fibrillation: (7) Hyperlipidemia: (8) Fall: (9) SIADH (syndrome of inappropriate ADH production): Total Time Total Time Spent Total Time Spent (In Minutes): It required greater than 30 minutes to prepare this patient for discharge Discharge Plan Discharge Items Patient Disposition: Transfer [facility] Fac Reason For Visit: HIP FX Discharge Diagnosis: mechanical fall with right hip fractute' repair of hip fracture acute blood loss anemia, transfused 2 units due to anemia will have bid aspirin for dvt prevention for one week then resume rivaroxaban for afib stroke prevention alcohol use Condition on Discharge: Fair Activity: Per Instructions section Activity Comment: Per PT OT Non-emergency contact: Primary Care Provider and Surgeon Call non-emergency contact if: your symptoms worsen Follow-up/Referrals: Lisandra Barnhart MD [Primary Care Provider] - Mary Jaimes PA-C [Physician Career Manager] - 04/03/22 2:00 pm Diet: Regular Addtl Attending Provider Instructions: pt developed anemia after restart of rivaroxiban, this seems to be a small bleed near surgical site, transfused and stable, but will not restart rivaroxiban for one week using asa 81 bid during that time with attention to hgb, she has ostomy and did not see melena, nor did see retroperitoneal bleed on CT just soft tissue small amount in gluteus on right Addtl Video Game Creator Provider Instructions: Weight-bear as tolerated right lower extremity. Posterior hip precautions at all times. Abduction pillow or standard pillow between knees when in bed or sitting in chair. Use walker to assist with ambulation at all times. Allowed for full range of motion of her right ankle and knee as tolerated. Ice to right hip as needed for pain and swelling. Elevate right lower extremity as needed for pain and swelling. Stockings bilateral lower extremities, on during the day and off at night. DVT prophylaxis as ordered. Follow-up with Dr. Simmons's office as scheduled. Please call [phone] to reschedule, confirm admit. Call with any fevers, chills, redness, warmth or drainage from the incision. Pending Studies at Discharge: No Stand-Alone Forms: [facility] Skilled Items Patient informed of condition?: No DNR: No Discharge Level of Care: Skilled Communicable Disease: No Discharge Prognosis: Stable Lines: None Urinary Catheter: No Medications and DC Order Prescriptions: New thiamine HCl (vitamin B1) 100 mg Tablet 100 mg PO QAM Qty: 60 0RF acetaminophen [Tylenol Extra Strength] 500 mg Tablet 1,000 mg PO Q6H PRN (Reason: pain) Qty: 90 0RF cyanocobalamin (vitamin B-12) 500 mcg Tablet 500 mcg PO QAM Qty: 60 0RF folic acid 1 mg Tablet 1 mg PO QAM Qty: 60 0RF aspirin 81 mg tablet,delayed release (DR/EC) 81 mg PO BID Qty: 14 0RF Rx Instructions: Then consider rivaroxiban Continued verapamil 120 mg tablet extended release 120 mg PO DAILY Qty: 90 3RF solifenacin [Vesicare] 5 mg tablet 5 mg PO DAILY Qty: 30 5RF rosuvastatin 5 mg tablet 5 mg PO 3XWK Rx Instructions: TAKE 1 TABLET BY MOUTH ON MONDAYS, WEDNESDAYS, AND FRIDAYS Changed metoprolol succinate 50 mg tablet extended release 24 hr 25 mg PO DAILY Qty: 90 3RF Discontinued Xarelto 15 mg tablet 15 mg PO DAILY Qty: 30 2RF Rx Instructions: must administer with evening meal coenzyme Q10 [CoQ-10] 100 mg Capsule 100 mg PO QAM furosemide 20 mg tablet 20 mg PO 3XWK Rx Instructions: one tablet every Sun, Sun and Sunday Discharge Orders: Discharge Order (Routine); Ordered 03/27/22 Ordered By: Arturo Sanders Admission Data Admit Date/Time: 03/20/22 00:45 Attending Provider: Arturo Sanders Admit Provider: Ruben Beyer Primary Care Provider: Lisandra Barnhart V. Other Providers: [facility] ; [place] ; Sherley Sesay [facility] ; Adrian Arenas ; Pedro Simmons Other Interventions: Discharge Summary Assessment (RN) Last Done: 03/27/22 13:23 Coding Level of Care Code D/C DAY MANAGEMENT >30 MINS Diagnoses Closed right hip fracture S72.001A Alcohol use Z72.89 Hypertension I10 Hypertension type: essential hypertension Chronic kidney disease, stage 3 N18.30 Chronic kidney disease stage 3 subtype: unspecified whether 3a or 3b Chronic anticoagulation Z79.01 Paroxysmal atrial fibrillation I48.0 Hyperlipidemia E78.5 Fall W19.XXXA SIADH (syndrome of inappropriate ADH production) E22.2
== END 2022-03-27 14:40 | DRG 522 ==
LOC: ED 20:58 → SUATTDRO 03-20 00:45 → EDINP 03-20 00:45 → 3W 03-20 11:55